=== PATIENT | female | born 1940 | race Caucasian/White ===

== ENCOUNTER 2017-12-22 06:09 | Emergency (ER) | payer MEDICARE, BC ==
[2017-12-22 06:21] VITALS: RESP 18; TEMP 98.1
[2017-12-22] MEDS ORDERED: OXYMETAZOLINE 0.05% NASL SPRAY 1 SPRAY BOTTLE NASAL STA (06:40)
--- NOTE | 2017-12-22 07:07 | ED ---
General Adult HPI - General Source: patient, RN notes reviewed, old records reviewed Mode of arrival: wheelchair Limitations: no limitations <Bola Jaffe - Last Filed: 12/22/17 07:06> <Russell Akbar - Last Filed: 12/22/17 09:06> - General Chief complaint: ENT Stated complaint: Nose Bleed Time Seen by Provider: 12/22/17 07:01 - History of Present Illness Initial comments: This is a 77-year-old female the ER for evaluation. Patient presents today for evaluation regarding nosebleed. Patient is on Coumadin, unsure of Coumadin level. Patient has 3 separatelast night stopped with pressure. Patient has no other complaints (Bola Jaffe) - Related Data Home Medications Medication Instructions Recorded Confirmed Divalproex Sodium 500 mg PO QAM 12/22/17 12/22/17 Divalproex [Depakote] 250 mg PO HS 12/22/17 12/22/17 Levothyroxine Sodium [Synthroid] 75 mcg PO DAILY 12/22/17 12/22/17 Lisinopril-Hctz 20-25 mg 1 tab PO DAILY 12/22/17 12/22/17 [Zestoretic 20-25] Metoprolol Tartrate 25 mg PO BID 12/22/17 12/22/17 Warfarin [Coumadin] 1 mg PO [id number] 12/22/17 12/22/17 Warfarin [Coumadin] 2 tab PO RICHARDSON 12/22/17 12/22/17 Zolpidem Tartrate [Ambien] 10 mg PO HS PRN 12/22/17 12/22/17 Allergies Allergy/AdvReac Type Severity Reaction Status Date / Time No Known Allergies Allergy Verified 12/22/17 07:50 Review of Systems ROS Other: All systems not noted in ROS Statement are negative. <Bola Jaffe - Last Filed: 12/22/17 07:06> ROS Other: All systems not noted in ROS Statement are negative. <Russell Akbar - Last Filed: 12/22/17 09:06> ROS Statement: Those systems with pertinent positive or pertinent negative responses have been documented in the HPI. Past Medical History Past Medical History: Atrial Fibrillation, Asthma, Hyperlipidemia, Hypertension History of Any Multi-Drug Resistant Organisms: None Reported Past Surgical History: Appendectomy Additional Past Surgical History / Comment(s): laser for gallstone Past Psychological History: No Psychological Hx Reported Smoking Status: Never smoker Past Alcohol Use History: Occasional Past Drug Use History: None Reported <Bola Jaffe - Last Filed: 12/22/17 07:06> General Exam Limitations: no limitations General appearance: alert, in no apparent distress Head exam: Present: atraumatic, normocephalic, normal inspection Eye exam: Present: normal appearance, PERRL, EOMI. Absent: scleral icterus, conjunctival injection, periorbital swelling ENT exam: Present: normal exam, mucous membranes moist, other (RIght nare epistaxis) Neck exam: Present: normal inspection. Absent: tenderness, meningismus, lymphadenopathy Respiratory exam: Present: normal lung sounds bilaterally. Absent: respiratory distress, wheezes, rales, rhonchi, stridor Cardiovascular Exam: Present: regular rate, normal rhythm, normal heart sounds. Absent: systolic murmur, diastolic murmur, rubs, gallop, clicks GI/Abdominal exam: Present: soft, normal bowel sounds. Absent: distended, tenderness, guarding, rebound, rigid Extremities exam: Present: normal inspection, full ROM, normal capillary refill. Absent: tenderness, pedal edema, joint swelling, calf tenderness Back exam: Present: normal inspection Neurological exam: Present: alert, oriented X3, CN II-XII intact Psychiatric exam: Present: normal affect, normal mood Skin exam: Present: warm, dry, intact, normal color. Absent: rash <Bola Jaffe - Last Filed: 12/22/17 07:06> Course <Bola Jaffe - Last Filed: 12/22/17 07:06> <Russell Akbar - Last Filed: 12/22/17 09:06> Vital Signs 12/22/17 12/22/17 06:14 08:13 Temperature 98.1 F Pulse Rate 87 82 Respiratory 18 18 Rate Blood Pressure 132/77 117/70 O2 Sat by Pulse 95 95 Oximetry - Reevaluation(s) Reevaluation #1: 12/22/17 07:06 Patient's nose is packed with (Bola Jaffe) Reevaluation #2: 12/22/17 09:05 I did reevaluate the patient she has a headache which she is awake alert oriented she feels much improved otherwise. She will be given a Tylenol and be discharged. I did discuss the findings with her and her family. She is a follow-up for pack removal in 2-3 days and return when necessary Tylenol for pain increase oral fluids. (Russell Akbar) Medical Decision Making <Bola Jaffe - Last Filed: 12/22/17 07:06> <Russell Akbar - Last Filed: 12/22/17 09:06> - Medical Decision Making 77 female the ER with nosebleed, right nose is packed, no current bleeding. Patient does get is okay for discharge (Bola Jaffe) Disposition Is patient prescribed a controlled substance at d/c from ED?: No <Bola Jaffe - Last Filed: 12/22/17 07:06> Is patient prescribed a controlled substance at d/c from ED?: No <Russell Akbar - Last Filed: 12/22/17 09:06> Clinical Impression: Epistaxis, Coumadin toxicity, Headache Disposition: HOME SELF-CARE Condition: Good Instructions: Nosebleed (ED), Ear Foreign Body (ED) Additional Instructions: Tylenol for pain and increase oral fluids. Referrals: Noel Angulo MD [Primary Care Provider] - 1-2 days
[2017-12-22] MEDS ORDERED: ACETAMINOPHEN TAB 325 MG TAB PO STA (08:47)
[2017-12-22 09:53] VITALS: BP 127/58; PULSE 74
== END 2017-12-22 09:53 | disposition home or self-care (01) ==
LOC: EC 06:09
DX: R04.0 Epistaxis (principal); T45.515A Adverse effect of anticoagulants, initial encounter; R51 Headache; I10 Essential (primary) hypertension; I48.91 Unspecified atrial fibrillation; Z79.899 Other long term (current) drug therapy
CPT/HCPCS: 30901; 99283

== ENCOUNTER 2021-06-03 18:55 | Inpatient (IN) | payer MEDICARE, BC ==
[2021-06-03] MEDS ORDERED: SODIUM CHLORIDE 0.9% 500 ML 500 ML IV ONE (20:23)
--- NOTE | 2021-06-03 20:35 | ED ---
General Adult HPI - General Chief complaint: Fall Stated complaint: fall/left knee/shoulder pain Time Seen by Provider: 06/03/21 20:04 Source: patient, family (Daughter), RN notes reviewed, old records reviewed Mode of arrival: wheelchair Limitations: no limitations - History of Present Illness Initial comments: 81-year-old female alert and oriented 4, presents to the emergency room with her daughter stating that she tried to get out of bed last night around 4:45 and fell. She states she fell flat spread chalkyitsik on the floor flat on her back. She states that she was unconscious until 8:15 that evening. She denies hitting her head. She states that she has left shoulder pain and left hip pain. She states that she's also been very weak. She did not take her medications last night or today. She states that her son came to pick her up off the floor after 8:30 PM and helped her get back into the bed. She states she laid in the bed all night long and urinated on a pad but did not get out of bed. She states that she was able to bear weight with some assistance to get into the car and come to the hospital. She states she did not get lightheaded or dizzy and that the cause of the fall was she was trying to put her slippers on and slipped on the floor. -: days(s) (1) Location: left, upper extremity, lower extremity Radiation: non-radiation Severity scale (1-10): 8 Quality: aching Consistency: constant Improves with: none Worsens with: movement Associated Symptoms: weakness Treatments Prior to Arrival: none - Related Data Home Medications Medication Instructions Recorded Confirmed Divalproex [Depakote] 250 mg PO BID 12/22/17 06/03/21 Levothyroxine Sodium [Synthroid] 75 mcg PO DAILY 12/22/17 06/03/21 Lisinopril-Hctz 20-25 mg 1 tab PO DAILY 12/22/17 06/03/21 [Zestoretic 20-25] Metoprolol Tartrate 25 mg PO BID 12/22/17 06/03/21 Warfarin [Coumadin] 1 mg PO HS 12/22/17 06/03/21 Zolpidem Tartrate [Ambien] 10 mg PO HS PRN 12/22/17 06/03/21 Acetaminophen Tab [Tylenol Tab] 500 mg PO Q6H PRN 06/03/21 06/03/21 Fluticasone/Salmeterol [Advair 1 puff INHALATION RT-BID 06/03/21 06/03/21 100-50 Diskus] Allergies Allergy/AdvReac Type Severity Reaction Status Date / Time No Known Allergies Allergy Verified 06/03/21 20:30 Review of Systems ROS Statement: Those systems with pertinent positive or pertinent negative responses have been documented in the HPI. ROS Other: All systems not noted in ROS Statement are negative. Past Medical History Past Medical History: Atrial Fibrillation, Asthma, Hyperlipidemia, Hypertension History of Any Multi-Drug Resistant Organisms: None Reported Past Surgical History: Appendectomy Additional Past Surgical History / Comment(s): laser for gallstone Past Psychological History: No Psychological Hx Reported Smoking Status: Never smoker Past Alcohol Use History: Occasional Past Drug Use History: None Reported General Exam Limitations: no limitations General appearance: alert, in no apparent distress Head exam: Present: atraumatic, normocephalic, normal inspection Eye exam: Present: normal appearance, PERRL, EOMI, other (Senile arcus). Absent: scleral icterus, conjunctival injection, periorbital swelling Pupils: Present: normal accommodation ENT exam: Present: normal exam, normal oropharynx, mucous membranes moist Neck exam: Present: normal inspection, full ROM. Absent: tenderness, meningismus, lymphadenopathy Respiratory exam: Present: normal lung sounds bilaterally. Absent: respiratory distress, wheezes, rales, rhonchi, stridor Cardiovascular Exam: Present: tachycardia GI/Abdominal exam: Present: soft, normal bowel sounds. Absent: distended, tenderness, guarding, rebound, rigid Extremities exam: Present: normal inspection, full ROM, normal capillary refill. Absent: tenderness, pedal edema, joint swelling, calf tenderness Back exam: Absent: tenderness, rash noted Neurological exam: Present: alert, oriented X3, CN II-XII intact Expanded Patient oriented to: Present: person, place, time Speech: Present: fluid speech Cranial nerves: EOM's Intact: Normal, Gag Reflex: Normal, Tongue Deviation: Normal Cerebellar function: Finger to Nose: Normal, Heel to Romero: Abnormal Right, Abnormal Left (States unable to lift her legs off the cart that high) Eye Response: (4) open spontaneously Motor Response: (6) obeys commands Verbal Response: (5) oriented (15) Psychiatric exam: Present: normal affect, normal mood Skin exam: Present: warm, dry, intact, normal color. Absent: rash, cyanosis, diaphoretic Course Vital Signs 06/03/21 06/03/21 06/03/21 19:48 21:51 23:30 Temperature 97.6 F Pulse Rate 106 H 84 122 H Respiratory 24 18 16 Rate Blood Pressure 103/73 106/77 100/59 O2 Sat by Pulse 95 93 L 94 L Oximetry EKG Findings - EKG Results: EKG shows: atrial fibrillation (A. fib with RVR with a ventricular rate of 132. QRS of 0.70, QTC 0.343) Medical Decision Making - Medical Decision Making X-ray of the left shoulder shows no acute osseous abnormality or dislocation. X-ray of the left hip and pelvis show no fracture or dislocation. Chest x-ray shows no acute cardiopulmonary process no displaced rib fractures. CT brain shows no mass lesions or intracranial bleeds. Her C-spine shows degenerative changes with some mild diffuse disc changes. Vertebral body height preserved no fractures are absent Her white blood cell count is 17.7 with a left shift. There is no evidence of anemia. Her glucose is 116. Her CK is 821. Her valproic acid is 18.5. INR is 5.8. Her Coumadin will be held. Troponin is negative at 0.014. EKG shows A. fib with RVR with a rate of 132. She was started on Cardizem drip and given a 5 mg Cardizem bolus. Case was discussed with Dr. Camilo. She'll be admitted to the hospital. I did speak with Dr. Valladares at 2210. - Lab Data Result diagrams: 06/03/21 20:41 06/03/21 20:41 Lab Results 06/03/21 06/03/21 06/03/21 Range/Units 20:41 20:41 20:41 WBC 17.7 H (3.8-10.6) k/uL RBC 4.59 (3.80-5.40) m/uL Hgb 14.1 (11.4-16.0) gm/dL Hct 42.8 (34.0-46.0) % MCV 93.3 (80.0-100.0) fL MCH 30.7 (25.0-35.0) pg MCHC 32.9 (31.0-37.0) g/dL RDW 13.3 (11.5-15.5) % Plt Count 212 (150-450) k/uL MPV 7.5 Neutrophils % 77 % Lymphocytes % 9 % Monocytes % 10 % Eosinophils % 0 % Basophils % 0 % Neutrophils # 13.7 H (1.3-7.7) k/uL Lymphocytes # 1.5 (1.0-4.8) k/uL Monocytes # 1.7 H (0-1.0) k/uL Eosinophils # 0.1 (0-0.7) k/uL Basophils # 0.1 (0-0.2) k/uL PT 52.0 H (9.0-12.0) sec INR 5.4 H* (<1.2) APTT 44.9 H (22.0-30.0) sec Sodium 135 L (137-145) mmol/L Potassium 4.0 (3.5-5.1) mmol/L Chloride 97 L (98-107) mmol/L Carbon Dioxide 26 (22-30) mmol/L Anion Gap 12 mmol/L BUN 27 H (7-17) mg/dL Creatinine 0.93 (0.52-1.04) mg/dL Est GFR (CKD-EPI)AfAm 67 (>60 ml/min/1.73 sqM) Est GFR (CKD-EPI)NonAf 58 (>60 ml/min/1.73 sqM) Glucose 116 H (74-99) mg/dL Calcium 9.5 (8.4-10.2) mg/dL Total Bilirubin 0.9 (0.2-1.3) mg/dL AST 51 H (14-36) U/L ALT 16 (4-34) U/L Alkaline Phosphatase 79 (38-126) U/L Creatine Kinase 821 H (30-135) U/L Troponin I (0.000-0.034) ng/mL Total Protein 7.0 (6.3-8.2) g/dL Albumin 3.8 (3.5-5.0) g/dL Valproic Acid 18.5 ug/mL 06/03/21 Range/Units 20:41 WBC (3.8-10.6) k/uL RBC (3.80-5.40) m/uL Hgb (11.4-16.0) gm/dL Hct (34.0-46.0) % MCV (80.0-100.0) fL MCH (25.0-35.0) pg MCHC (31.0-37.0) g/dL RDW (11.5-15.5) % Plt Count (150-450) k/uL MPV Neutrophils % % Lymphocytes % % Monocytes % % Eosinophils % % Basophils % % Neutrophils # (1.3-7.7) k/uL Lymphocytes # (1.0-4.8) k/uL Monocytes # (0-1.0) k/uL Eosinophils # (0-0.7) k/uL Basophils # (0-0.2) k/uL PT (9.0-12.0) sec INR (<1.2) APTT (22.0-30.0) sec Sodium (137-145) mmol/L Potassium (3.5-5.1) mmol/L Chloride (98-107) mmol/L Carbon Dioxide (22-30) mmol/L Anion Gap mmol/L BUN (7-17) mg/dL Creatinine (0.52-1.04) mg/dL Est GFR (CKD-EPI)AfAm (>60 ml/min/1.73 sqM) Est GFR (CKD-EPI)NonAf (>60 ml/min/1.73 sqM) Glucose (74-99) mg/dL Calcium (8.4-10.2) mg/dL Total Bilirubin (0.2-1.3) mg/dL AST (14-36) U/L ALT (4-34) U/L Alkaline Phosphatase (38-126) U/L Creatine Kinase (30-135) U/L Troponin I 0.014 (0.000-0.034) ng/mL Total Protein (6.3-8.2) g/dL Albumin (3.5-5.0) g/dL Valproic Acid ug/mL Disposition Clinical Impression: Fall, Atrial fibrillation with RVR Disposition: ADMITTED IP TO THIS [facility] Condition: Fair Decision Date: 06/03/21 Decision Time: 22:09
[2021-06-03 20:56] LABS: Basophils # (A) 0.1 k/uL (0-0.2); Basophils % (A) 0 %; Eosinophils # (A) 0.1 k/uL (0-0.7); Eosinophils % (A) 0 %; HCT 42.8 % (34.0-46.0); HGB 14.1 gm/dL (11.4-16.0); Lymphocytes # (A) 1.5 k/uL (1.0-4.8); Lymphocytes % (A) 9 %; MCH 30.7 pg (25.0-35.0); MCHC 32.9 g/dL (31.0-37.0); MCV 93.3 fL (80.0-100.0); Mean Platelet Volume 7.5; Monocytes # (A) 1.7 k/uL (0-1.0); Monocytes % (A) 10 %; Neutrophils # (A) 13.7 k/uL (1.3-7.7); Neutrophils % (A) 77 %; Platelet Count 212 k/uL (150-450); RBC 4.59 m/uL (3.80-5.40); RDW 13.3 % (11.5-15.5); WBC 17.7 k/uL (3.8-10.6)
[2021-06-03 21:04] LABS: Partial Thromboplastin Time 44.9 sec (22.0-30.0)
[2021-06-03 21:07] LABS: Albumin 3.8 g/dL (3.5-5.0); Calcium 9.5 mg/dL (8.4-10.2); Total Bilirubin 0.9 mg/dL (0.2-1.3)
--- NOTE | 2021-06-03 21:08 | XR ---
EXAMINATION TYPE: XR shoulder complete LT DATE OF EXAM: 06/03/2021 COMPARISON: NONE HISTORY: Fall, pain TECHNIQUE: Shoulder examined in 3 projections FINDINGS: The humeral head articulates with the glenoid. The acromio-clavicular junction is normal. No acute fractures or dislocations are evident. A follow up study can be performed 7-10 days from acute trauma for continued pain. IMPRESSION: 1. No acute osseous abnormality three-view left Shoulder
--- NOTE | 2021-06-03 21:09 | XR ---
EXAMINATION TYPE: XR Hip LT and AP Pelvis DATE OF EXAM: 06/03/2021 COMPARISON: Fall HISTORY: Pain after fall TECHNIQUE: AP pelvis with 2 view left hip FINDINGS: Femoral heads articulate with the acetabulum. Symphysis pubis and sacroiliac joints are nor mal. No acute fractures or dislocations are evident. Follow up exams can be performed as clinically i ndicated. IMPRESSION: 1. No acute osseous abnormality.
--- NOTE | 2021-06-03 21:10 | XR ---
EXAMINATION TYPE: XR chest 2V DATE OF EXAM: 06/03/2021 COMPARISON: None INDICATION: Fall, pain TECHNIQUE: Frontal and lateral views of the chest are obtained. FINDINGS: The heart size is normal. The pulmonary vasculature is normal. The lungs are clear. No pneumothorax is evident. No displaced rib fractures are identified. IMPRESSION: 1. No acute pulmonary process. 2. No acute posttraumatic changes.
[2021-06-03 21:12] LABS: Valproic Acid (Depakene) 18.5 ug/mL
--- NOTE | 2021-06-03 21:24 | CT ---
EXAMINATION TYPE: CT brain lola petersen DATE OF EXAM: 06/03/2021 COMPARISON: None HISTORY: fall CT DLP: 1353.7 mGycm, Automated exposure control for dose reduction was used. CONTRAST: Patient injected with 0 mL of Isovue 300. CT of the brain is performed utilizing 3 mm thick sections through the posterior fossa and 3 mm thick sections through the remaining calvarium. Study is performed within 24 hours of arrival to the hospital. No abnormal hyperdensity is present to suggest an acute intracranial hemorrhage. No mass lesion is evident. Mild periventricular white matter hypodensity is present, likely on the basis of chronic white matter ischemic changes. No acute infarcts are evident. Ventricles and sulci are mildly prominent for the patient age. Paranasal sinuses and mastoid air cells within the [id number] are clear. IMPRESSIONS: 1. Atrophy with chronic appearing periventricular white matter ischemic changes. CT cervical spine. COMPARISON: None CT of the cervical spine is performed in the axial plane at 2 mm thick sections. Reconstructed image s in the coronal, and sagittal plane are reviewed on the computer. No acute fractures are evident. Vertebral body alignment is normal. Mild diffuse disc space narrowing is present. Vertebral body heights are preserved. Multilevel spondylosis is present with anterior vertebral body spurring. Uncovertebral joint hypertrophy and facet hypertrophy is contributing to left foraminal stenosis at C 3-4. IMPRESSIONS: 1. No acute osseous abnormality. 2. Degenerative changes with some mild diffuse disc changes
[2021-06-03 21:33] LABS: INR 5.4 (<1.2)
[2021-06-03] MEDS ORDERED: MORPHINE SULFATE 2 MG/ML SYRINGE IVP ONE (21:38)
[2021-06-03] MEDS ORDERED: DILTIAZEM 5 MG/ML 5 ML VIAL IVP STA (21:58)
[2021-06-03] MEDS ORDERED: DILTIAZEM 125 MG in SODIUM CHLORIDE 0.9% 100 ML IV SCH (22:00)
[2021-06-03] MEDS ORDERED: IBUPROFEN 400 MG TAB PO PRN (22:09)
[2021-06-03] MEDS ORDERED: ACETAMINOPHEN TAB 325 MG TAB PO PRN (22:09)
[2021-06-03] MEDS ORDERED: NALOXONE 0.4 MG/ML 1 ML VIAL IV PRN (22:09)
[2021-06-03] MEDS ORDERED: ZOLPIDEM 5 MG TAB PO PRN (22:11)
[2021-06-03] MEDS: SODIUM CHLORIDE 0.9% 1,000 ML IV SCH (23:25)
[2021-06-04] MEDS: LEVOTHYROXINE 75 MCG TAB PO SCH (06:00)
[2021-06-04] MEDS: SODIUM CHLORIDE 0.9% 1,000 ML IV SCH ×3 (06:00→20:20)
[2021-06-04] MEDS: SYMBICORT 80-4.5 MCG INHALER INHALATION SCH ×2 (08:04→20:40)
[2021-06-04] MEDS: METOPROLOL TARTRATE 25 MG TAB PO SCH ×2 (08:59→20:20)
[2021-06-04] MEDS: DIVALPROEX 250 MG TABLET.DR PO SCH ×2 (08:59→21:59)
[2021-06-04] MEDS: LISINOPRIL-HCTZ 20-25 MG 1 EACH TAB PO SCH (08:59)
--- NOTE | 2021-06-04 12:35 | P.HPIM ---
History of Present Illness H&P Date: 06/04/21 HISTORY OF PRESENT ILLNESS This is a 81-year-old female patient of Dr. Noel Angulo with past medical history of atrial fibrillation on chronic Coumadin, mild intermittent asthma, hypertension, hyperlipidemia, hypothyroidism. Patient states that she was getting out of bed ended up falling on the ground around 4:45 in the morning and ended up laying on the floor until 8:15 in the morning. She denies having any injury and denies hitting her head. Her daughter lives with her but did not hear her fall. She did have loss of bladder. She denies having any palpitation s prior to the fall, no lightheadedness or dizziness. She does not have a exit booth agent. Dr. Angulo has been managing her INR. Patient normally walks with a wheeled walker when she lays her home but in the home she just uses the garcía to hang onto. Acute she does not usually go shopping because she is claustrophobic when she gets inside stores. Patient was brought into the [facility] emergency center. EKG was atrial fibrillation with RVR. She was found to be afebrile, heart rate 122, blood pressure 100/59, pulse ox 94% on room air. Workup revealed WBC 17.7, hemoglobin 14.1, platelet count 212. INR 5.4. Sodium 135, potassium 4.0, chloride 97, CO2 26, BUN 27 creatinine 0.93. Blood sugar 116. AST 51, CK 821. Troponin negative. Valproic acid 18.5. Rotavirus PCR not detected. TSH 2. X-ray of the left shoulder revealed no acute osseous abnormality. X-ray of the left hip and pelvis revealed no acute osseous abnormality. Chest x-ray reveals no acute pulmonary process. No acute posttraumatic changes. CAT scan of the head and cervical spine revealed atrophy with chronic-appearing. Ventricular white matter ischemic changes. CT Cervical spine no acute osseous abnormality. Degenerative changes with some mild diffuse disc changes. Patient started on IV fluids at 75 mL per hour, status post 1-1/2 L of IV fluid bolus, Cardizem drip, admit the patient to cardiac stepdown unit and cardiology consult. Patient is seen today in the emergency center waiting for them on the cardiac stepdown unit. REVIEW OF SYSTEMS Constitutional: No fever, no chills, no night sweats. No weight change. Reported weakness, Reported fatigue Reported lethargy. No daytime sleepiness. EENT: No headache. No blurred vision or double vision, no loss of vision. No dizziness. No nasal drainage or congestion. No epistaxis. No sore throat. Lungs: No shortness of breath, cough, no sputum production. No wheezing. Cardiovascular: No chest pain, no lower extremity edema. No palpitations. No paroxysmal nocturnal dyspnea. No orthopnea. No lightheadedness or dizziness. No syncopal episodes. Abdominal: No abdominal pain. No nausea, vomiting. No diarrhea. No constipation. No bloody or tarry stools. No loss of appetite. Genitourinary: No dysuria, increased frequency, urgency. No urinary retention. Musculoskeletal: No myalgias. Reported muscle weakness, no gait dysfunction, no frequent falls. No back pain. No neck pain. Integumentary: No wounds, no lesions. No rash or pruritus. No unusual bruising. No change in hair or nails. Neurologic: No aphasia. No facial droop. No change in mentation. No head injury. No headache. No paralysis. No paresthesia. Psychiatric: No depression. No anxiety. No mood swings. Endocrine: No abnormal blood sugars. No weight change. No excessive sweating or thirst. No cold intolerance. SOCIAL HISTORY Patient is a lifelong nonsmoker but 42 years of secondhand smoke exposure with her who has 3 years ago. No alcohol, marijuana or illicit drug use. Her daughter lives with her and 3 children live nearby. FAMILY HISTORY Mother at age 70 from CVA. Father at age 70 from pancreatic cancer. Patient does not have any sisters. She has 1 brother that at age 63 after a tree fell on him. She has a total of 7 children, 6 sons and 1 daughter. One son has from suicide with history of pneumonia and asthma. PHYSICAL EXAMINATION Gen: This is an 81-year-old female. She is resting on the ER stretcher and appears to be comfortable. Patient is tearful talking about her son. HEENT: Head is atraumatic, normocephalic. Pupils equal, round. Sclerae is anicteric. NECK: Supple. No JVD. No lymphadenopathy. No thyromegaly. LUNGS: Clear to auscultation. No wheezes or rhonchi. No intercostal retractions. HEART: Regular rate and rhythm. No murmur. ABDOMEN: Soft. Bowel sounds are present. No masses. No tenderness. EXTREMITIES: No pedal edema. No calf tenderness. NEUROLOGICAL: Patient is awake, alert and oriented x3. Cranial nerves 2 through 12 are grossly intact. ASSESSMENT AND PLAN 1. Fall, mechanical with generalized weakness. Consult with PT and OT. Patient most likely will require subacute rehab. 2. Rhabdomyolysis. s/p 1500 mL of IV fluids, decrease IV fluids to 75 mL/h, recheck CK tomorrow. 3. Chronic atrial fibrillation with RVR. Cardiology consult. Patient has been started on Cardizem drip, resume Lopressor 25 mg twice daily. hold Coumadin for tonight and recheck INR in the morning. 4. Hypercoagulopathy secondary to Coumadin use, rhabdomyolysis. 5. Hypertension. Zestoretic 2024 one daily, Lopressor 25 mg twice daily. 6. Mild intermittent asthma, stable. Continue Symbicort 2 puffs twice daily. 7. Hyperlipidemia. 8. GI prophylaxis. Protonix. 9. DVT prophylaxis Coumadin-on hold. Patient will be admitted to the hospital for a minimum of 2 nights. DISCHARGE PLAN TBD. PT and OT consults Impression and plan of care have been directed as dictated by the signing physician. Dianna Souza nurse practitioner acting as scribe for signing physician. Past Medical History Past Medical History: Atrial Fibrillation, Asthma, Hyperlipidemia, Hypertension History of Any Multi-Drug Resistant Organisms: None Reported Past Surgical History: Appendectomy Additional Past Surgical History / Comment(s): laser for gallstone Past Psychological History: No Psychological Hx Reported Smoking Status: Never smoker Past Alcohol Use History: Occasional Past Drug Use History: None Reported - Past Family History Mother Family Medical History: CVA/TIA Father Family Medical History: Cancer Medications and Allergies Home Medications Medication Instructions Recorded Confirmed Type Divalproex [Depakote] 250 mg PO BID 12/22/17 06/03/21 History Levothyroxine Sodium [Synthroid] 75 mcg PO DAILY 12/22/17 06/03/21 History Lisinopril-Hctz 20-25 mg 1 tab PO DAILY 12/22/17 06/03/21 History [Zestoretic 20-25] Metoprolol Tartrate 25 mg PO BID 12/22/17 06/03/21 History Warfarin [Coumadin] 1 mg PO HS 12/22/17 06/03/21 History Zolpidem Tartrate [Ambien] 10 mg PO HS PRN 12/22/17 06/03/21 History Acetaminophen Tab [Tylenol Tab] 500 mg PO Q6H PRN 06/03/21 06/03/21 History Fluticasone/Salmeterol [Advair 1 puff INHALATION RT-BID 06/03/21 06/03/21 History 100-50 Diskus] Allergies Allergy/AdvReac Type Severity Reaction Status Date / Time No Known Allergies Allergy Verified 06/03/21 20:30 Physical Exam Vitals: Vital Signs Temp Pulse Resp BP Pulse Ox 06/04/21 08:58 90 20 109/76 98 06/04/21 06:00 98.1 F 91 20 118/65 99 06/04/21 05:00 92 18 109/71 98 06/04/21 04:00 91 18 96 06/04/21 03:00 97 18 96/60 94 L 06/04/21 02:00 112 H 18 97/63 94 L 06/04/21 00:22 110 H 06/03/21 23:30 122 H 16 100/59 94 L 06/03/21 21:51 84 18 106/77 93 L 06/03/21 19:48 97.6 F 106 H 24 103/73 95 Intake and Output 06/03/21 06/04/21 06/04/21 22:59 06:59 14:59 Other: Weight 84.368 kg Results CBC & Chem 7: 06/05/21 08:37 06/05/21 08:37 Labs: Abnormal Lab Results - Last 24 Hours (Table) 06/03/21 06/03/21 06/03/21 Range/Units 20:41 20:41 20:41 WBC 17.7 H (3.8-10.6) k/uL Neutrophils # 13.7 H (1.3-7.7) k/uL Monocytes # 1.7 H (0-1.0) k/uL PT 52.0 H (9.0-12.0) sec INR 5.4 H* (<1.2) APTT 44.9 H (22.0-30.0) sec Sodium 135 L (137-145) mmol/L Chloride 97 L (98-107) mmol/L BUN 27 H (7-17) mg/dL Glucose 116 H (74-99) mg/dL AST 51 H (14-36) U/L Creatine Kinase 821 H (30-135) U/L
[2021-06-05] MEDS: LEVOTHYROXINE 75 MCG TAB PO SCH (06:38)
[2021-06-05] MEDS: SYMBICORT 80-4.5 MCG INHALER INHALATION SCH ×2 (07:51→20:40)
[2021-06-05] MEDS: LISINOPRIL-HCTZ 20-25 MG 1 EACH TAB PO SCH (08:51)
[2021-06-05] MEDS: METOPROLOL TARTRATE 25 MG TAB PO SCH ×2 (08:51→20:28)
[2021-06-05] MEDS: DIVALPROEX 250 MG TABLET.DR PO SCH ×2 (08:51→20:28)
[2021-06-05] MEDS: SODIUM CHLORIDE 0.9% 1,000 ML IV SCH ×2 (08:52→22:33)
[2021-06-05 09:14] LABS: HCT 35.2 % (34.0-46.0); HGB 11.8 gm/dL (11.4-16.0); MCH 31.3 pg (25.0-35.0); MCHC 33.4 g/dL (31.0-37.0); MCV 93.7 fL (80.0-100.0); Mean Platelet Volume 7.6; Platelet Count 219 k/uL (150-450); RBC 3.75 m/uL (3.80-5.40); RDW 13.8 % (11.5-15.5)
[2021-06-05 09:26] LABS: INR 3.2 (<1.2); Prothrombin Time 31.2 sec (9.0-12.0)
[2021-06-05 09:38] LABS: African American GFR (CKD) >90 (>60 ml/min/1.73 sqM); Anion Gap 6 mmol/L; Blood Urea Nitrogen 19 mg/dL (7-17); Calcium 8.6 mg/dL (8.4-10.2); Carbon Dioxide 27 mmol/L (22-30); Chloride 104 mmol/L (98-107); Creatine Kinase 281 U/L (30-135); Glucose 114 mg/dL (74-99); Non-African American GFR(CKD) 85 (>60 ml/min/1.73 sqM); Potassium 3.9 mmol/L (3.5-5.1); Sodium 137 mmol/L (137-145)
--- NOTE | 2021-06-05 11:25 | ECHOF ---
Referral Reason:afib, LV function MEASUREMENTS -------- HEIGHT: 154.9 cm WEIGHT: 87.1 kg BP: RVIDd: 2.6 cm (< 3.3) IVSd: 1.2 cm (0.6 - 1.1) LVIDd: 4.8 cm (3.9 - 5.3) LVPWd: 1.0 cm (0.6 - 1.1) IVSs: 1.7 cm LVIDs: 3.0 cm LVPWs: 1.3 cm LAESV Index (A-L): 27.79 ml/m Ao Diam: 3.0 cm (2.0 - 3.7) AV Cusp: 1.8 cm (1.5 - 2.6) LA Diam: 2.8 cm (2.7 - 3.8) AR PHT: 557 ms RAP: 5.00 mmHg RVSP: 33.21 mmHg FINDINGS -------- Atrial fibrillation. This was a technically good study. The left ventricular size is normal. Left ventricular wall thickness is normal. Overall left vent ricular systolic function is low-normal with, an EF between 50 - 55 %. Left ventricular fillimg pre ssure cannot be estimated due to Atrial fibrillation. The right ventricle is normal in size. The left atrial size is normal. Normal LA size by volume 22+/-6 ml/m2. The right atrial size is normal. The aortic valve is trileaflet and appears structurally normal. Trace amount of aortic regurgitatio n. The mitral valve is normal. Mild mitral regurgitation is present. The tricuspid valve appears structurally normal. Mild tricuspid regurgitation present. Right vent ricular systolic pressure is normal at < 35 mmHg. There is no pulmonic regurgitation present. The aortic root size is normal. Normal inferior vena cava with normal inspiratory collapse consistent with estimated right atrial pre ssure of 5 mmHg. Echo free space represents a pericardial fat pad. CONCLUSIONS -------- 1. The left ventricular size is normal. 2. Left ventricular wall thickness is normal. 3. Overall left ventricular systolic function is low-normal with, an EF between 50 - 55 %. 4. Left ventricular fillimg pressure cannot be estimated due to Atrial fibrillation. 5. Trace amount of aortic regurgitation. 6. Mild mitral regurgitation is present. 7. Mild tricuspid regurgitation present. 8. Echo free space represents a pericardial fat pad. DRY MOP MAKER: Eve Starkey RDCS
--- NOTE | 2021-06-05 12:07 | P.CRDCN ---
History of Present Illness Consult date: 06/05/21 History of present illness: HISTORY OF PRESENT ILLNESS: This is a 81-year-old female with a past medical history significant for atrial fibrillation, hypertension, and asthma. Patient used to follow in the office with Dr. Jacobs but has not been seen since 2016. We have been asked to see the patient in consultation for A. fib with RVR. Patient examined at the bedside. Patient presented to the hospital after sustaining a mechanical fall at home. The patient states after she fell she laid on the floor for a few hours. The patient was found to be in A. fib with RVR upon admission to the hospital. The patient was started on a Cardizem drip. She is maintaining atrial fibrillation this morning with a heart rate in the 80s. She denies chest pain or pressure. Denies shortness of breath. Denies palpitations. EKG reveals atrial fibrillation with RVR Chest xray negative for acute process echocardiogram obtained reveals ejection fraction 50-55%, mild mitral regurgitation, and trace aortic regurgitation. Laboratory data: CBC 10.0. Hemoglobin 11.8. Platelet count 219. INR 5.4. Repeat 3.2. Sodium 137. Potassium 3.9. BUN 19. Creatinine 0.61. Troponin 0.014. Creatinine kinase 821. Current home cardiac medications include Coumadin 1 mg at night, metoprolol tartrate 25 mg twice a day, lisinopril-hydrochlorothiazide 20-25mg daily REVIEW OF SYSTEMS: At the time of my exam: CONSTITUTIONAL: Denies fever or chills. HEENT: Denies blurred vision, vision changes, or eye pain. Denies hemoptysis CARDIOVASCULAR: Denies chest pain. Denies orthopnea. Denies PND. Denies palpitations RESPIRATORY: Denies shortness of breath. GASTROINTESTINAL: Denies abdominal pain. Denies nausea or vomiting. HEMATOLOGIC: Denies bleeding disorders. GENITOURINARY: Denies any blood in urine. SKIN: Denies pruitis. Denies rash. PHYSICAL EXAM: VITAL SIGNS: Reviewed. GENERAL: Well-developed in no acute distress. HEENT: Head is normocephalic. Pupils are equal, round. Sclerae anicteric. Mucous membranes of the mouth are moist. Neck supple. No JVD or thyromegaly LUNGS: Respirations even and unlabored. Lungs essentially clear to auscultation bilaterally. HEART: Regular rate and rhythm. S1 and S2 heard. ABDOMEN: Soft. Nondistended. Nontender. EXTREMITIES: Normal range of motion. No clubbing or cyanosis. Peripheral pulses intact. No lower extremity edema NEUROLOGIC: Awake and alert. Oriented x 3. ASSESSMENT: Mechanical fall Elevated CK, possible rhabdomyolysis Chronic persistent atrial fibrillation with RVR Supratherapeutic INR Hypertension Asthma PLAN: 2D echo obtained and reviewed Resume home cardiac medications Hold coumadin secondary to elevated INR. Resume when coagulopathy resolves Continue telemetry monitoring No further inpatient recommendations from a cardiac standpoint We will follow up on an as-needed basis. Please call with questions or concerns Nurse practitioner note has been reviewed by physician. Signing provider agrees with the documented findings, assessment, and plan of care. Past Medical History Past Medical History: Atrial Fibrillation, Asthma, Hyperlipidemia, Hypertension History of Any Multi-Drug Resistant Organisms: None Reported Past Surgical History: Appendectomy, Hernia Repair, Tubal Ligation Additional Past Surgical History / Comment(s): laser for gallstone Past Anesthesia/Blood Transfusion Reactions: No Reported Reaction Additional Past Anesthesia/Blood Transfusion Reaction / Comment(s): Last blood transfusion 08/1969. No reaction. Past Psychological History: Depression Smoking Status: Never smoker Past Alcohol Use History: Occasional Past Drug Use History: None Reported - Past Family History Mother Family Medical History: CVA/TIA Father Family Medical History: Cancer Medications and Allergies Home Medications Medication Instructions Recorded Confirmed Type Divalproex [Depakote] 250 mg PO BID 12/22/17 06/03/21 History Levothyroxine Sodium [Synthroid] 75 mcg PO DAILY 12/22/17 06/03/21 History Lisinopril-Hctz 20-25 mg 1 tab PO DAILY 12/22/17 06/03/21 History [Zestoretic 20-25] Metoprolol Tartrate 25 mg PO BID 12/22/17 06/03/21 History Warfarin [Coumadin] 1 mg PO HS 12/22/17 06/03/21 History Zolpidem Tartrate [Ambien] 10 mg PO HS PRN 12/22/17 06/03/21 History Acetaminophen Tab [Tylenol Tab] 500 mg PO Q6H PRN 06/03/21 06/03/21 History Fluticasone/Salmeterol [Advair 1 puff INHALATION RT-BID 06/03/21 06/03/21 History 100-50 Diskus] Allergies Allergy/AdvReac Type Severity Reaction Status Date / Time No Known Allergies Allergy Verified 06/03/21 20:30 Physical Exam Vitals: Vital Signs Temp Pulse Pulse Resp BP BP Pulse Ox 06/05/21 08:00 97.8 F 101 H 16 117/75 90 L 06/05/21 04:00 97.4 F L 73 16 112/64 98 06/05/21 00:00 98.4 F 89 18 105/63 93 L 06/04/21 22:01 97.1 F L 80 16 129/60 96 06/04/21 20:00 97.1 F L 73 06/04/21 17:30 74 18 102/59 99 06/04/21 15:06 52 L 16 97/51 98 06/04/21 13:58 97.6 F 65 18 111/64 98 Intake and Output 06/04/21 06/05/21 06/05/21 22:59 06:59 14:59 Intake Total 900 Balance 900 Intake: Intake, IV Titration 900 Amount Sodium Chloride 0.9% 1, 900 000 ml @ 75 mls/hr IV . [id number] [facility] Rx#:[id number] Other: # Voids 1 1 1 # Bowel Movements 1 1 Weight 84.368 kg 87.5 kg Results 06/05/21 08:37 06/05/21 08:37 Coagulation 06/05/21 Range/Units 08:37 PT 31.2 H (9.0-12.0) sec CBC 06/05/21 Range/Units 08:37 WBC 10.0 (3.8-10.6) k/uL RBC 3.75 L (3.80-5.40) m/uL Hgb 11.8 (11.4-16.0) gm/dL Hct 35.2 (34.0-46.0) % Plt Count 219 (150-450) k/uL Comprehensive Metabolic Panel 06/05/21 Range/Units 08:37 Sodium 137 (137-145) mmol/L Potassium 3.9 (3.5-5.1) mmol/L Chloride 104 (98-107) mmol/L Carbon Dioxide 27 (22-30) mmol/L BUN 19 H (7-17) mg/dL Creatinine 0.61 (0.52-1.04) mg/dL Glucose 114 H (74-99) mg/dL Calcium 8.6 (8.4-10.2) mg/dL Current Medications Generic Name Dose Route Start Last Admin Trade Name Freq PRN Reason Stop Dose Admin Acetaminophen 650 mg 06/03/21 22:09 06/05/21 06:43 Acetaminophen Tab 325 Mg Tab PO 650 mg Q6HR PRN Administration Mild Pain or Fever > 100.5 Budesonide/Formoterol Fumarate 2 puff 06/04/21 08:00 06/05/21 07:51 Symbicort 80-4.5 Mcg Inhaler INHALATION 2 puff RT-BID PAMELA Administration Divalproex Sodium 250 mg 06/04/21 09:00 06/05/21 08:51 Divalproex 250 Mg Tablet.Dr PO 250 mg BID PAMELA Administration Lisinopril/HCTZ 1 each 06/04/21 09:00 06/05/21 08:51 Lisinopril-Hctz 20-25 Mg 1 Each Tab PO 1 each DAILY PAMELA Administration Sodium Chloride 1,000 mls @ 75 mls/hr 06/04/21 12:30 06/05/21 08:52 Saline 0.9% IV 75 mls/hr .[id number] PAMELA Administration Levothyroxine Sodium 75 mcg 06/04/21 06:30 06/05/21 06:38 Levothyroxine 75 Mcg Tab PO 75 mcg DAILY@0630 PAMELA Administration Metoprolol Tartrate 25 mg 06/04/21 09:00 06/05/21 08:51 Metoprolol Tartrate 25 Mg Tab PO 25 mg BID PAMELA Administration Miscellaneous Information 1 each 06/05/21 11:40 Warfarin Per Pharmacy MISCELLANE DIRECTED PRN INR Naloxone HCl 0.2 mg 06/03/21 22:09 Naloxone 0.4 Mg/Ml 1 Ml Vial IV Q2M PRN Opioid Reversal Warfarin Sodium 1 mg 06/05/21 18:00 Warfarin 1 Mg Tab PO 06/05/21 18:01 ONCE@1800 ONE Protocol Zolpidem Tartrate 10 mg 06/03/21 22:11 Zolpidem 5 Mg Tab PO HS PRN Insomnia Intake and Output 06/04/21 06/05/21 06/05/21 22:59 06:59 14:59 Intake Total 900 Balance 900 Intake: Intake, IV Titration 900 Amount Sodium Chloride 0.9% 1, 900 000 ml @ 75 mls/hr IV . [id number] [facility] Rx#:[id number] Other: # Voids 1 1 1 # Bowel Movements 1 1 Weight 84.368 kg 87.5 kg 06/05/21 08:37 06/05/21 08:37
--- NOTE | 2021-06-05 13:13 | P.PN ---
Subjective Progress Note Date: 06/05/21 HISTORY OF PRESENT ILLNESS This is a 81-year-old female patient of Dr. Noel Angulo with past medical history of atrial fibrillation on chronic Coumadin, mild intermittent asthma, hypertension, hyperlipidemia, hypothyroidism. Patient states that she was getting out of bed ended up falling on the ground around 4:45 in the morning and ended up laying on the floor until 8:15 in the morning. She denies having any injury and denies hitting her head. Her daughter lives with her but did not hear her fall. She did have loss of bladder. She denies having any palpitations prior to the fall, no lightheadedness or dizziness. She does not have a cylinder steamer. Dr. Angulo has been managing her INR. Patient normally walks with a wheeled walker when she lays her home but in the home she just uses the garcía to hang onto. Acute she does not usually go shopping because she is claustrophobic when she gets inside stores. Patient was brought into the [facility] emergency center. EKG was atrial fibrillation with RVR. She was found to be afebrile, heart rate 122, blood pressure 100/59, pulse ox 94% on room air. Workup revealed WBC 17.7, hemoglobin 14.1, platelet count 212. INR 5.4. Sodium 135, potassium 4.0, chloride 97, CO2 26, BUN 27 creatinine 0.93. Blood sugar 116. AST 51, CK 821. Troponin negative. Valproic acid 18.5. Rotavirus PCR not detected. TSH 2. X-ray of the left shoulder revealed no acute osseous abnormality. X-ray of the left hip and pelvis revealed no acute osseous abnormality. Chest x-ray reveals no acute pulmonary process. No acute posttraumatic changes. CAT scan of the head and cervical spine revealed atrophy with chronic-appearing. Ventricular white matter ischemic changes. CT Cervical spine no acute osseous abnormality. Degenerative changes with some mild diffuse disc changes. Patient started on IV fluids at 75 mL per hour, status post 1-1/2 L of IV fluid bolus, Cardizem drip, admit the patient to cardiac stepdown unit and cardiology consult. Patient is seen today in the emergency center waiting for them on the cardiac stepdown unit. 06/05: Repeat blood work reveals INR INR 3.2 and Coumadin will be resumed tonight. WBC normal at 10, hemoglobin 11.8. Electrolytes are normal, BUN 19 and creatinine 0.61. Blood sugar 114. CK 281. conveyor monitor is atrial fibrillation with controlled rate running 70 to 90s. Patient was seen by cardiology and they have signed off. IV fluids will be discontinued after the current bag is finished. Repeat blood work will be ordered for tomorrow. Patient has been evaluated by physical therapy with recommendations for home with home care. Anticipate discharge home tomorrow. Echocardiogram reveals EF of 5055% with trace aortic regurgitation, mild mitral regurgitation, mild tricuspid regurgitation. REVIEW OF SYSTEMS Constitutional: No fever, no chills, no night sweats. No weight change. Reported weakness, denies fatigue denies lethargy. No daytime sleepiness. EENT: No headache. No blurred vision or double vision, no loss of vision. No dizziness. No nasal drainage or congestion. No epistaxis. No sore throat. Lungs: No shortness of breath, cough, no sputum production. No wheezing. Cardiovascular: No chest pain, no lower extremity edema. No palpitations. No paroxysmal nocturnal dyspnea. No orthopnea. No lightheadedness or dizziness. No syncopal episodes. Abdominal: No abdominal pain. No nausea, vomiting. No diarrhea. No constipation. No bloody or tarry stools. No loss of appetite. Genitourinary: No dysuria, increased frequency, urgency. No urinary retention. Musculoskeletal: No myalgias. Reported muscle weakness, no gait dysfunction, no frequent falls. No back pain. No neck pain. Integumentary: No wounds, no lesions. No rash or pruritus. No unusual bruising. No change in hair or nails. Neurologic: No aphasia. No facial droop. No change in mentation. No head injury. No headache. No paralysis. No paresthesia. Psychiatric: No depression. No anxiety. No mood swings. Endocrine: No abnormal blood sugars. No weight change. No excessive sweating or thirst. No cold intolerance. PHYSICAL EXAMINATION Gen: This is an 81-year-old female. She is resting IN BED and appears to be comfortable. HEENT: Head is atraumatic, normocephalic. Pupils equal, round. Sclerae is anicteric. NECK: Supple. No JVD. No lymphadenopathy. No thyromegaly. LUNGS: Clear to auscultation. No wheezes or rhonchi. No intercostal retractions. HEART: Regular rate and rhythm. No murmur. ABDOMEN: Soft. Bowel sounds are present. No masses. No tenderness. EXTREMITIES: No pedal edema. No calf tenderness. NEUROLOGICAL: Patient is awake, alert and oriented x3. Cranial nerves 2 through 12 are grossly intact. ASSESSMENT AND PLAN 1. Fall, mechanical with generalized weakness. Consult with PT and OT. 2. Rhabdomyolysis. s/p 1500 mL of IV fluids, decrease IV fluids to 75 mL/h, recheck CK tomorrow. Discontinue IV fluids after current bag is completed. 3. Chronic atrial fibrillation with RVR. Cardiology consult. Patient has been started on Cardizem drip, resume Lopressor 25 mg twice daily. hold Coumadin for tonight and recheck INR in the morning. Resume Coumadin today. 4. Hypercoagulopathy secondary to Coumadin use, rhabdomyolysis. 5. Hypertension. Zestoretic 2024 one daily, Lopressor 25 mg twice daily. 6. Mild intermittent asthma, stable. Continue Symbicort 2 puffs twice daily. 7. Hyperlipidemia. 8. GI prophylaxis. Protonix. 9. DVT prophylaxis Coumadin-on hold. DISCHARGE PLAN Home with homecare tomorrow Impression and plan of care have been directed as dictated by the signing phys chelsie. Dianna Souza nurse practitioner acting as scribe for signing physician. Objective - Vital Signs Vital signs: Vital Signs Temp 97.8 F 06/05/21 08:00 Pulse 101 H 06/05/21 08:00 Resp 16 06/05/21 08:00 BP 117/75 06/05/21 08:00 Pulse Ox 90 L 06/05/21 08:00 Intake & Output 06/04/21 06/05/21 06/05/21 18:59 06:59 18:59 Intake Total 900 Balance 900 Weight 87.5 kg Intake: Intake, IV Titration 900 Amount Sodium Chloride 0.9% 1, 900 000 ml @ 75 mls/hr IV . [id number] [facility] Rx#:[id number] Other: # Voids 1 1 # Bowel Movements 1 1 - Labs CBC & Chem 7: 06/05/21 08:37 06/05/21 08:37 Labs: Abnormal Lab Results - Last 24 Hours (Table) 06/05/21 06/05/2106/05/21 Range/Units 08:37 08:37 08:37 RBC 3.75 L (3.80-5.40) m/uL PT 31.2 H (9.0-12.0) sec INR 3.2 H (<1.2) BUN 19 H (7-17) mg/dL Glucose 114 H (74-99) mg/dL Creatine Kinase 281 H (30-135) U/L
[2021-06-05] MEDS ORDERED: WARFARIN 1 MG TAB PO ONE (18:00)
[2021-06-06 04:11] VITALS: RESP 18
[2021-06-06] MEDS: LEVOTHYROXINE 75 MCG TAB PO SCH (05:24)
[2021-06-06] MEDS ORDERED: PANTOPRAZOLE 40 MG TABLET PO SCH (07:30)
[2021-06-06 08:21] LABS: INR 3.6 (<1.2); Prothrombin Time 34.9 sec (9.0-12.0)
[2021-06-06] MEDS: METOPROLOL TARTRATE 25 MG TAB PO SCH (08:53)
[2021-06-06] MEDS: LISINOPRIL-HCTZ 20-25 MG 1 EACH TAB PO SCH (08:53)
[2021-06-06] MEDS: DIVALPROEX 250 MG TABLET.DR PO SCH (08:53)
[2021-06-06] MEDS: SYMBICORT 80-4.5 MCG INHALER INHALATION SCH (09:43)
[2021-06-06 10:26] LABS: Appearance,Urine Clear (Clear); Bacteria,Urine Occasional /hpf; Bilirubin,Urine Negative (Negative); Blood,Urine Trace (Negative); Color,Urine Yellow; Glucose,Urine (UA) Negative (Negative); Ketones,Urine Negative (Negative); Leukocyte Esterase,Urine Moderate (Negative); Mucus,Urine Rare /hpf; Nitrite,Urine Negative (Negative); Protein,Urine Negative (Negative); RBC,Urine 4 /hpf (0-5); Specific Gravity,Urine 1.013 (1.001-1.035); Squamous Epithelial Cell,Urine 1 /hpf (0-4); WBC,Urine 74 /hpf (0-5)
[2021-06-06 11:00] VITALS: BP 129/77; TEMP 97
[2021-06-06 12:23] VITALS: PULSE 87
--- NOTE | 2021-06-06 12:24 | P.DS ---
Providers Date of admission: 06/03/21 22:32 Expected date of discharge: 06/06/21 Attending physician: Israel Valladares Primary care physician: Noel Angulo [facility] Course: HISTORY OF PRESENT ILLNESS This is a 81-year-old female patient of Dr. Noel Angulo with past medical history of atrial fibrillation on chronic Coumadin, mild intermittent asthma, hypertension, hyperlipidemia, hypothyroidism. Patient states that she was getting out of bed ended up falling on the ground around 4:45 in the morning and ended up laying on the floor until 8:15 in the morning. She denies having any injury and denies hitting her head. Her daughter lives with her but did not hear her fall. She did have loss of bladder. She denies having any palpitations prior to the fall, no lightheadedness or dizziness. She does not h ave a angle furnaceman. Dr. Angulo has been managing her INR. Patient normally walks with a wheeled walker when she lays her home but in the home she just uses the garcía to hang onto. Acute she does not usually go shopping because she is claustrophobic when she gets inside stores. Patient was brought into the [facility] emergency center. EKG was atrial fibrillation with RVR. She was found to be afebrile, heart rate 122, blood pressure 100/59, pulse ox 94% on room air. Workup revealed WBC 17.7, hemoglobin 14.1, platelet count 212. INR 5.4. Sodium 135, potassium 4.0, chlor maida 97, CO2 26, BUN 27 creatinine 0.93. Blood sugar 116. AST 51, CK 821. Troponin negative. Valproic acid 18.5. Rotavirus PCR not detected. TSH 2. X-ray of the left shoulder revealed no acute osseous abnormality. X-ray of the left hip and pelvis revealed no acute osseous abnormality. Chest x-ray reveals no acute pulmonary process. No acute posttraumatic changes. CAT scan of the head and cervical spine revealed atrophy with chronic-appearing. Ventricular white matter ischemic changes. CT Cervical spine no acute osseous abnormality. Degenerative changes with some mild diffuse disc changes. Patient started on IV fluids at 75 mL per hour, status post 1-1/2 L of IV fluid bolus, Cardizem drip, admit the patient to cardiac stepdown unit and cardiology consult. Patient is seen today in the emergency center waiting for them on the cardiac stepdown unit. 06/05: Repeat blood work reveals INR INR 3.2 and Coumadin will be resumed tonight. WBC normal at 10, hemoglobin 11.8. Electrolytes are normal, BUN 19 and creatinine 0.61. Blood sugar 114. CK 281. site monitor is atrial fibrillation with controlled rate running 70 to 90s. Patient was seen by cardiology and they have signed off. IV fluids will be discontinued after the current bag is finished. Repeat blood work will be ordered for tomorrow. Patient has been evaluated by physical therapy with recommendations for home with home care. Anticipate discharge home tomorrow. Echocardiogram reveals EF of 5055% with trace aortic regurgitation, mild mitral regurgitation, mild tricuspid regurgitation. 06/06: The patient denies any new complaints. She states she has walked the hallways multiple times and is doing very well. She denies having any chest pain, shortness of breath, palpitations, lightheadedness or dizziness with ambulation. site monitor has been atrial fibrillation, heart rate in the 70s to 90s. Patient will be discharged home today in stable condition. ASSESSMENT AND PLAN 1. Fall, mechanical with generalized weakness. 2. Rhabdomyolysis. s/p IV fluids 3. Chronic atrial fibrillation with RVR. 4. Hypercoagulopathy secondary to Coumadin use, rhabdomyolysis. 5. Hypertension. 6. Mild intermittent asthma, stable. 7. Hyperlipidemia. DISCHARGE PLAN Home with [facility] Impression and plan of care have been directed as dictated by the signing physician. Dianna Souza nurse practitioner acting as scribe for signing physician. Patient Condition at Discharge: Good Plan - Discharge Summary Discharge Rx Participant: No New Discharge Prescriptions: Continue Lisinopril-Hctz 20-25 mg [Zestoretic 20-25] 1 tab PO DAILY Metoprolol Tartrate 25 mg PO BID Warfarin [Coumadin] 1 mg PO HS Levothyroxine Sodium [Synthroid] 75 mcg PO DAILY Divalproex [Depakote] 250 mg PO BID Zolpidem Tartrate [Ambien] 10 mg PO HS PRN PRN Reason: Insomnia Fluticasone/Salmeterol [Advair 100-50 Diskus] 1 puff INHALATION RT-BID Acetaminophen Tab [Tylenol] 500 mg PO Q6H PRN PRN Reason: Shortness Of Breath Discharge Medication List Divalproex [Depakote] 250 mg PO BID 12/22/17 [History] Levothyroxine Sodium [Synthroid] 75 mcg PO DAILY 12/22/17 [History] Lisinopril-Hctz 20-25 mg [Zestoretic 20-25] 1 tab PO DAILY 12/22/17 [History] Metoprolol Tartrate 25 mg PO BID 12/22/17 [History] Warfarin [Coumadin] 1 mg PO HS 12/22/17 [History] Zolpidem Tartrate [Ambien] 10 mg PO HS PRN 12/22/17 [History] Acetaminophen Tab [Tylenol] 500 mg PO Q6H PRN 06/03/21 [History] Fluticasone/Salmeterol [Advair 100-50 Diskus] 1 puff INHALATION RT-BID 06/03/21 [History] Follow up Appointment(s)/Referral(s): Jacob Coleman DO [STAFF PHYSICIAN] - 1 Week (The office will call you with appointment date and time.) Noel Angulo MD [Primary Care Provider] - 06/12/21 10:15 am Patient Instructions/Handouts: A-fib (Atrial Fibrillation) (DC), Fall Prevention for Older Adults (DC) Discharge Disposition: HOME WITH HOME HEALTH SERVICES
[2021-06-06] MEDS ORDERED: WARFARIN 0.5 MG TAB PO ONE (18:00)
--- NOTE | 2021-06-09 09:10 | CDI ---
Documentation Clarification Form Date: 06/09/2021 08:09:00 AM From: Allyson Hernandez Admit Date: 06/03/2021 10:32:00 PM Patient Name: Falguni Sorenson Visit Number: [id number] Discharge Date: 06/06/2021 12:24:00 PM ATTENTION: The Clinical Documentation Specialists (CDI) and [facility] Coding Staff appreciate your assistance in clarifying documentation. Please respond to the clarification below the line at the bottom and electronically sign. The CDI & [facility] Coding staff will review the response and follow-up if needed. Please note: Queries are made part of the Legal Health Record. If you have any questions, please contact the author of this message via ITS. Dr. Israel Valladares Rhabdomyolysis is documented throughout the chart. Patient was getting out of bed and ended up falling on the ground around 4:45 am and ended up lying on the floor until 8:15 am. Please clarify if patient's rhabdomyolysis is due to trauma or not. Additional clarification regarding the type of rhabdomyolysis is requested. History/Risk Factors: Fall Clinical Indicators: CK 821 Treatment:,1500 mL of IV fluids, decrease to 75 mLh Please clarify the type of rhabdomyolysis, if known: [ ] Traumatic rhabdomyolysis due to fall [ xx ] Traumatic rhabdomyolysis due to prolonged immobility [ ] Non traumatic rhabdomyolysis due to medication (please specify) [ ] Non traumatic rhabdomyolysis due to infection (please specify) [ ] Other, please specify [ ] Unable to Determine MTDD
== END 2021-06-06 12:24 | disposition home health service (06) | DRG 310 ==
LOC: EC 18:55 → 3SCARD 22:32
PROVIDERS: ADMIT Internal Medicine Geriatric Medicine; ATTEND Internal Medicine Geriatric Medicine
DX: I48.19 Other persistent atrial fibrillation (principal); J45.20 Mild intermittent asthma, uncomplicated; I10 Essential (primary) hypertension; E78.5 Hyperlipidemia, unspecified; E03.9 Hypothyroidism, unspecified; R79.1 Abnormal coagulation profile; T79.6XXA Traumatic ischemia of muscle, initial encounter; T45.515A Adverse effect of anticoagulants, initial encounter; W01.0XXA Fall on same level from slipping, tripping and stumbling without subsequent striking against object, initial encounter; Y92.009 Unspecified place in unspecified non-institutional (private) residence as the place of occurrence of the external cause; Z77.22 Contact with and (suspected) exposure to environmental tobacco smoke (acute) (chronic); Z20.822 Contact with and (suspected) exposure to COVID-19; Z79.01 Long term (current) use of anticoagulants; Z79.51 Long term (current) use of inhaled steroids; Z79.890 Hormone replacement therapy; Z79.899 Other long term (current) drug therapy; Z80.0 Family history of malignant neoplasm of digestive organs; Z82.3 Family history of stroke; Z82.5 Family history of asthma and other chronic lower respiratory diseases; Z81.8 Family history of other mental and behavioral disorders; F40.240 Claustrophobia
CPT/HCPCS: 36415; 70450; 71046; 72125; 73502; 80048; 80053; 80164; 81001; 82550; 84443; 84484; 85025; 85027; 85610; 85730; 87077; 87086; 87186; 87635; 93005; 93306; 94640; 94760; 96360; 96361; 99285

== ENCOUNTER 2021-06-30 12:40 | Inpatient (IN) | payer MEDICARE, BC ==
[2021-06-30 13:33] LABS: Basophils % (A) 1 %; Eosinophils % (A) 1 %; HCT 39.3 % (34.0-46.0); HGB 13.5 gm/dL (11.4-16.0); Lymphocytes # (A) 1.1 k/uL (1.0-4.8); Lymphocytes % (A) 21 %; MCH 30.9 pg (25.0-35.0); MCHC 34.4 g/dL (31.0-37.0); MCV 89.7 fL (80.0-100.0); Mean Platelet Volume 8.1; Monocytes # (A) 0.6 k/uL (0-1.0); Monocytes % (A) 11 %; Neutrophils # (A) 3.4 k/uL (1.3-7.7); Neutrophils % (A) 64 %; Platelet Count 115 k/uL (150-450); RBC 4.38 m/uL (3.80-5.40); RDW 13.5 % (11.5-15.5); WBC 5.3 k/uL (3.8-10.6)
--- NOTE | 2021-06-30 13:33 | XR ---
EXAMINATION TYPE: XR chest 1V portable DATE OF EXAM: 06/30/2021 COMPARISON: NONE HISTORY: Shortness of breath TECHNIQUE: Frontal and lateral views of the chest are obtained. FINDINGS: Scattered senescent parenchymal changes noted. Hyperinflation compatible with COPD. No evidence for infiltrate. No evidence for atelectasis. Heart size is stable. Mediastinal structures are stable and grossly unremarkable. No evidence for hilar prominence. Degenerative changes dorsal spine. IMPRESSION: 1. No evidence for acute pulmonary disease.
--- NOTE | 2021-06-30 13:35 | ED ---
General Adult HPI - General Chief complaint: Upper Respiratory Infection Stated complaint: COVID + Source: patient, EMS Mode of arrival: EMS Limitations: no limitations - History of Present Illness Initial comments: 81-year-old female past medical history of A. fib on Coumadin presents to the emergency department with weakness. Patient recently hospitalized on the second of this month after she had a fall. She was discharged home with home care. Reports that approximately 7 days ago she began feeling more weak than normal. Home care came to the house last week and was concerned that the patient had a new illness. They recommended testing Covid. Patient went to [facility] drive-through on Wednesday. Testing came back positive. Patient's nonvaccinated. She did sustain a fall at home on Wednesday. States that she has been afraid to get out of bed due to the fall. She has had a decreased appetite. Daughter was concerned as she is unable to care for the patient and EMS was called. Patient admits to mild shortness of breath. No chest pain. No nausea, vomiting or diarrhea - Related Data Home Medications Medication Instructions Recorded Confirmed Divalproex [Depakote] 250 mg PO BID 12/22/17 06/30/21 Levothyroxine Sodium [Synthroid] 75 mcg PO DAILY 12/22/17 06/30/21 Lisinopril-Hctz 20-25 mg 1 tab PO DAILY 12/22/17 06/30/21 [Zestoretic 20-25] Metoprolol Tartrate 25 mg PO BID 12/22/17 06/30/21 Warfarin [Coumadin] 1 mg PO W/SUPPER 12/22/17 06/30/21 Zolpidem Tartrate [Ambien] 10 mg PO HS 12/22/17 06/30/21 Fluticasone/Salmeterol [Advair 2 puff INHALATION RT-BID 06/03/21 06/30/21 100-50 Diskus] Allergies Allergy/AdvReac Type Severity Reaction Status Date / Time No Known Allergies Allergy Verified 06/30/21 15:28 Review of Systems ROS Statement: Those systems with pertinent positive or pertinent negative responses have been documented in the HPI. ROS Other: All systems not noted in ROS Statement are negative. Past Medical History Past Medical History: Atrial Fibrillation, Asthma, Hyperlipidemia, Hypertension History of Any Multi-Drug Resistant Organisms: None Reported Past Surgical History: Appendectomy Additional Past Surgical History / Comment(s): laser for gallstone Past Anesthesia/Blood Transfusion Reactions: No Reported Reaction Additional Past Anesthesia/Blood Transfusion Reaction / Comment(s): Last blood transfusion 08/1969. No reaction. Past Psychological History: No Psychological Hx Reported Smoking Status: Never smoker Past Alcohol Use History: Occasional Past Drug Use History: None Reported - Past Family History Mother Family Medical History: CVA/TIA Father Family Medical History: Cancer General Exam Limitations: no limitations Course Vital Signs 06/30/21 06/30/21 06/30/21 12:47 12:56 13:59 Temperature Pulse Rate 100 110 H Respiratory 18 18 16 Rate Blood Pressure 138/80 115/72 O2 Sat by Pulse 95 98 Oximetry 06/30/21 20:07 Temperature 97.8 F Pulse Rate 104 H Respiratory 18 Rate Blood Pressure 110/63 O2 Sat by Pulse 98 Oximetry EKG Findings - EKG Comments: EKG Findings:: EKG demonstrates A. fib with a rate of 102. QRS 80. QTC of 424. No acute ST segment elevations or depressions Medical Decision Making - Medical Decision Making Upon arrival patient is placed into a hallway 10. Initial saturations are 94%. Patient's oxygen is turned off. We did conduct laboratory studies. Patient is swabbed for Covid. Chest x-rays performed. Patient is positive for Covid. Magnesium 1.2. Chest x-ray performed which demonstrates no evidence for acute cardiopulmonary disease. Patient does have a decrease in her oxygen saturations down to 96%. She is placed back on 2 L of oxygen. Patient given dexamethasone, Ventolin inhaler. Patient's magnesium was replaced and she started on 50 mL of normal saline per hour. Recommend admission for hypoxia versus patient did agree to. Spoke with Dr. Daniels who agreed to admit the patient. Pulmonology is placed on consult. She remained in stable condition awaiting about on the floor - Lab Data Result diagrams: 06/30/21 13:15 06/30/21 13:15 Lab Results 06/30/21 06/30/21 06/30/21 Range/Units 13:15 13:15 13:15 WBC 5.3 (3.8-10.6) k/uL RBC 4.38 (3.80-5.40) m/uL Hgb 13.5 (11.4-16.0) gm/dL Hct 39.3 (34.0-46.0) % MCV 89.7 (80.0-100.0) fL MCH 30.9 (25.0-35.0) pg MCHC 34.4 (31.0-37.0) g/dL RDW 13.5 (11.5-15.5) % Plt Count 115 L (150-450) k/uL MPV 8.1 Neutrophils % 64 % Lymphocytes % 21 % Monocytes % 11 % Eosinophils % 1 % Basophils % 1 % Neutrophils # 3.4 (1.3-7.7) k/uL Lymphocytes # 1.1 (1.0-4.8) k/uL Monocytes # 0.6 (0-1.0) k/uL Eosinophils # 0.0 (0-0.7) k/uL Basophils # 0.0 (0-0.2) k/uL PT 26.1 H (9.0-12.0) sec INR 2.7 H (<1.2) APTT 39.4 H (22.0-30.0) sec Sodium 132 L (137-145) mmol/L Potassium 3.8 (3.5-5.1) mmol/L Chloride 94 L (98-107) mmol/L Carbon Dioxide 29 (22-30) mmol/L Anion Gap 9 mmol/L BUN 20 H (7-17) mg/dL Creatinine 0.74 (0.52-1.04) mg/dL Est GFR (CKD-EPI)AfAm 89 (>60 ml/min/1.73 sqM) Est GFR (CKD-EPI)NonAf 77 (>60 ml/min/1.73 sqM) Glucose 98 (74-99) mg/dL Plasma Lactic Acid Andrew (0.7-2.0) mmol/L Calcium 8.6 (8.4-10.2) mg/dL Magnesium 1.2 L (1.6-2.3) mg/dL Total Bilirubin 0.6 (0.2-1.3) mg/dL AST 31 (14-36) U/L ALT 12 (4-34) U/L Alkaline Phosphatase 50 (38-126) U/L Total Protein 6.5 (6.3-8.2) g/dL Albumin 3.4 L (3.5-5.0) g/dL Coronavirus (PCR) (Not Detectd) 06/30/21 06/30/21 Range/Units 13:15 13:15 WBC (3.8-10.6) k/uL RBC (3.80-5.40) m/uL Hgb (11.4-16.0) gm/dL Hct (34.0-46.0) % MCV (80.0-100.0) fL MCH (25.0-35.0) pg MCHC (31.0-37.0) g/dL RDW (11.5-15.5) % Plt Count (150-450) k/uL MPV Neutrophils % % Lymphocytes % % Monocytes % % Eosinophils % % Basophils % % Neutrophils # (1.3-7.7) k/uL Lymphocytes # (1.0-4.8) k/uL Monocytes # (0-1.0) k/uL Eosinophils # (0-0.7) k/uL Basophils # (0-0.2) k/uL PT (9.0-12.0) sec INR (<1.2) APTT (22.0-30.0) sec Sodium (137-145) mmol/L Potassium (3.5-5.1) mmol/L Chloride (98-107) mmol/L Carbon Dioxide (22-30) mmol/L Anion Gap mmol/L BUN (7-17) mg/dL Creatinine (0.52-1.04) mg/dL Est GFR (CKD-EPI)AfAm (>60 ml/min/1.73 sqM) Est GFR (CKD-EPI)NonAf (>60 ml/min/1.73 sqM) Glucose (74-99) mg/dL Plasma Lactic Acid Andrew 1.4 (0.7-2.0) mmol/L Calcium (8.4-10.2) mg/dL Magnesium (1.6-2.3) mg/dL Total Bilirubin (0.2-1.3) mg/dL AST (14-36) U/L ALT (4-34) U/L Alkaline Phosphatase (38-126) U/L Total Protein (6.3-8.2) g/dL Albumin (3.5-5.0) g/dL Coronavirus (PCR) Detected A (Not Detectd) Disposition Clinical Impression: COVID-19, Hypoxia Disposition: ADMITTED IP TO THIS [facility] Condition: Stable Is patient prescribed a controlled substance at d/c from ED?: No Decision to Admit Reason: Admit from EC Decision Date: 06/30/21 Decision Time: 15:19
[2021-06-30 13:47] LABS: INR 2.7 (<1.2); Partial Thromboplastin Time 39.4 sec (22.0-30.0); Prothrombin Time 26.1 sec (9.0-12.0)
[2021-06-30 14:03] LABS: Albumin 3.4 g/dL (3.5-5.0); Calcium 8.6 mg/dL (8.4-10.2); Magnesium 1.2 mg/dL (1.6-2.3); Potassium 3.8 mmol/L (3.5-5.1); Total Bilirubin 0.6 mg/dL (0.2-1.3); Total Protein 6.5 g/dL (6.3-8.2)
[2021-06-30] MEDS ORDERED: NALOXONE 0.4 MG/ML 1 ML VIAL IV PRN (15:19)
[2021-06-30] MEDS ORDERED: IBUPROFEN 400 MG TAB PO PRN (15:19)
[2021-06-30] MEDS ORDERED: ACETAMINOPHEN TAB 325 MG TAB PO PRN (15:19)
[2021-06-30] MEDS: SODIUM CHLORIDE 0.9% 1,000 ML IV SCH (16:19)
[2021-06-30] MEDS: MAGNESIUM SULFATE-D5W PMX 1 GM in DEXTROSE/WATER 1 100ML.BAG IVPB SCH ×2 (16:21→21:11)
[2021-06-30] MEDS: DEXAMETHASONE SOD PHOSPHATE 10 MG/ML 1 ML VIAL IVP SCH (16:22)
[2021-06-30] MEDS: METOPROLOL TARTRATE 25 MG TAB PO SCH (21:10)
[2021-06-30] MEDS: DIVALPROEX 250 MG TABLET.DR PO SCH (21:11)
[2021-06-30] MEDS: ZOLPIDEM 10 MG TAB PO SCH (21:45)
[2021-06-30] MEDS: WARFARIN 1 MG TAB PO SCH (21:45)
[2021-06-30] MEDS: ALBUTEROL HFA INHALER INHALATION SCH (21:54)
[2021-07-01] MEDS: ALBUTEROL HFA INHALER INHALATION SCH ×4 (07:47→21:31)
[2021-07-01] MEDS: METOPROLOL TARTRATE 25 MG TAB PO SCH ×2 (08:51→22:12)
[2021-07-01] MEDS: LEVOTHYROXINE 75 MCG TAB PO SCH (08:51)
[2021-07-01] MEDS: DIVALPROEX 250 MG TABLET.DR PO SCH ×2 (08:52→22:12)
[2021-07-01] MEDS: DEXAMETHASONE SOD PHOSPHATE 10 MG/ML 1 ML VIAL IVP SCH (08:52)
[2021-07-01 09:11] LABS: Basophils # (A) 0.01 X 10*3/uL (0.00-0.10); Basophils % (A) 0.3 %; Eosinophils # (A) 0 X 10*3/uL (0.04-0.35); Eosinophils % (A) 0 %; HCT 40.7 % (37.2-46.3); HGB 12.8 g/dL (12.0-15.0); Lymphocytes # (A) 0.79 X 10*3/uL (0.90-5.00); Lymphocytes % (A) 23.7 %; MCH 29.4 pg (27.0-32.0); MCHC 31.4 g/dL (32.0-37.0); MCV 93.6 fL (80.0-97.0); Monocytes # (A) 0.32 X 10*3/uL (0.20-1.00); Monocytes % (A) 9.6 %; Neutrophils # (A) 2.19 X 10*3/uL (1.80-7.70); Neutrophils % (A) 65.8 %; Platelet Count 138 X 10*3/uL (140-440); RBC 4.35 X 10*6/uL (4.10-5.20); RDW 13.7 % (11.5-14.5); WBC 3.33 X 10*3/uL (4.50-10.00)
[2021-07-01 09:21] LABS: INR 2.85 (0.90-1.11); Prothrombin Time 29.8 sec (9.9-11.9)
[2021-07-01 09:44] LABS: African American GFR (CKD) 80.1 (60.0-200.0); Anion Gap 12.8 mmol/L (10.00-18.00); BUN/Creat Ratio 20.5 Ratio (12.00-20.00); Blood Urea Nitrogen 16.4 mg/dL (9.0-27.0); Calcium 8.6 mg/dL (8.7-10.3); Carbon Dioxide 28.2 mmol/L (20.0-27.5); Non-African American GFR(CKD) 69.1 (60.0-200.0); Potassium 4.3 mmol/L (3.5-5.5)
[2021-07-01] MEDS ORDERED: AZITHROMYCIN 1,200 MG/30 ML BOTTLE PO SCH (11:00)
[2021-07-01] MEDS: SYMBICORT 80-4.5 MCG INHALER INHALATION SCH ×2 (11:17→21:31)
--- NOTE | 2021-07-01 14:37 | P.HPIM ---
History of Present Illness H&P Date: 07/01/21 HISTORY OF PRESENT ILLNESS This is a 81-year-old female patient of Dr. Noel Angulo with past medical history of atrial fibrillation on chronic Coumadin, mild intermittent asthma, hypertension, hyperlipidemia, hypothyroidism. Patient states she has had symptoms for the past 10 days and went to [facility] on 06/25 for covert testing which came back positive. She denies being on any medications for this. Patient had a fall at home on Wednesday but did not pass out. She has decreased appetite and was not getting out of bed, daughter was concerned and called EMS. Patient does have some shortness of breath. No nausea, vomiting or diarrhea. No chest pain. Patient was brought into the [facility] emergency center. EKG was atrial fibrillation. She was found to be afebrile, heart rate 100, blood pressure 138/80, pulse ox 95% on room air. CBC was unremarkable except for platelet count of 115. INR 2.7. Sodium 132, BUN 20 creatinine 0.74. Magnesium 1.2 valproic acid 41.8. Lawrence virus PCR detected. Liver function tests were normal. INR 2.7. Chest x-ray reveals no acute pulmonary process. Patient started on azithromycin for bronchitis, albuterol, Symbicort, dexamethasone and continued on Coumadin, pulmonary consult. Patient is seen today in the emergency center waiting for a bed on the [facility] floor. REVIEW OF SYSTEMS Constitutional: No fever, no chills, no night sweats. No weight change. Rep orted weakness, Reported fatigue Reported lethargy. No daytime sleepiness. EENT: No headache. No blurred vision or double vision, no loss of vision. No dizziness. No nasal drainage or congestion. No epistaxis. No sore throat. Lungs: Reports shortness of breath, reports cough, no sputum production. No wheezing. Cardiovascular: No chest pain, no lower extremity edema. No palpitations. No paroxysmal nocturnal dyspnea. No orthopnea. No lightheadedness or dizziness. No syncopal episodes. Abdominal: No abdominal pain. No nausea, vomiting. No diarrhea. No constipation. No bloody or tarry stools. No loss of appetite. Genitourinary: No dysuria, increased frequency, urgency. No urinary retention. Musculoskeletal: No myalgias. Reported muscle weakness, no gait dysfunction, no frequent falls. No back pain. No neck pain. Integumentary: No wounds, no lesions. No rash or pruritus. No unusual bruising. No change in hair or nails. Neurologic: No aphasia. No facial droop. No change in mentation. No head injury. No headache. No paralysis. No paresthesia. Psychiatric: No depression. No anxiety. No mood swings. Endocrine: No abnormal blood sugars. No weight change. No excessive sweating or thirst. No cold intolerance. SOCIAL HISTORY Patient is a lifelong nonsmoker but 42 years of secondhand smoke exposure with her who has 3 years ago. No alcohol, marijuana or illicit drug use. Her daughter lives with her and 3 children live nearby. FAMILY HISTORY Mother at age 70 from CVA. Father at age 70 from pancreatic cancer. Patient does not have any sisters. She has 1 brother that at age 63 after a tree fell on him. She has a total of 7 children, 6 sons and 1 daughter. One son has from suicide with history of pneumonia and asthma. PHYSICAL EXAMINATION Gen: This is an 81-year-old female. She is resting on the ER stretcher and appears to be comfortable. HEENT: Head is atraumatic, normocephalic. Pupils equal, round. Sclerae is anicteric. NECK: Supple. No JVD. No lymphadenopathy. No thyromegaly. LUNGS: Diminished bilaterally, bilateral crackles. No intercostal retractions. HEART: Regular rate and rhythm. No murmur. ABDOMEN: Soft. Bowel sounds are present. No masses. No tenderness. EXTREMITIES: No pedal edema. No calf tenderness. NEUROLOGICAL: Patient is awake, alert and oriented x3. Cranial nerves 2 through 12 are grossly intact. ASSESSMENT AND PLAN 1. COVID-19 infection. Patient started on albuterol inhaler 4 times daily, azithromycin, Symbicort twice daily, Decadron 6 mg IV push daily, pulmonary consult Fall, mechanical with generalized weakness. Consult with PT and OT. 2. Thrombocytopenia secondary to infection. 3. Fall without loss of consciousness. 4. Hypomagnesemia. Status post replacement. 5. Hypertension. Zestoretic 2024 one daily with parameters, continue Lopressor 25 mg twice daily. 6. Mild intermittent asthma, stable. Continue Symbicort 2 puffs twice daily. 7. Hyperlipidemia. 8. Chronic atrial fibrillation with RVR. Continue Lopressor 25 mg twice daily and Coumadin, pharmacy dosing. 9. GI prophylaxis. Protonix. 10. DVT prophylaxis. Continue Coumadin, pharmacy dosing Patient will be admitted to the hospital for a minimum of 2 nights. DISCHARGE PLAN TBD. PT and OT consults Impression and plan of care have been directed as dictated by the signing physician. Dianna Souza nurse practitioner acting as scribe for signing physician. Past Medical History Past Medical History: Atrial Fibrillation, Asthma, Hyperlipidemia, Hypertension History of Any Multi-Drug Resistant Organisms: None Reported Past Surgical History: Appendectomy Additional Past Surgical History / Comment(s): laser for gallstone Past Anesthesia/Blood Transfusion Reactions: No Reported Reaction Additional Past Anesthesia/Blood Transfusion Reaction / Comment(s): Last blood transfusion 08/1969. No reaction. Past Psychological History: No Psychological Hx Reported Smoking Status: Never smoker Past Alcohol Use History: Occasional Past Drug Use History: None Reported - Past Family History Mother Family Medical History: CVA/TIA Father Family Medical History: Cancer Medications and Allergies Home Medications Medication Instructions Recorded Confirmed Type Divalproex [Depakote] 250 mg PO BID 12/22/17 06/30/21 History Levothyroxine Sodium [Synthroid] 75 mcg PO DAILY 12/22/17 06/30/21 History Lisinopril-Hctz 20-25 mg 1 tab PO DAILY 12/22/17 06/30/21 History [Zestoretic 20-25] Metoprolol Tartrate 25 mg PO BID 12/22/17 06/30/21 History Warfarin [Coumadin] 1 mg PO W/SUPPER 12/22/17 06/30/21 History Zolpidem Tartrate [Ambien] 10 mg PO HS 12/22/17 06/30/21 History Fluticasone/Salmeterol [Advair 2 puff INHALATION RT-BID 06/03/21 06/30/21 History 100-50 Diskus] Allergies Allergy/AdvReac Type Severity Reaction Status Date / Time No Known Allergies Allergy Verified 06/30/21 15:28 Physical Exam Vitals: Vital Signs Temp Pulse Resp BP Pulse Ox 07/01/21 07:43 98.8 F 77 20 127/83 96 07/01/21 05:17 84 20 121/75 95 06/30/21 20:07 97.8 F 104 H 18 110/63 98 06/30/21 13:59 110 H 16 115/72 98 06/30/21 12:56 18 06/30/21 12:47 100 18 138/80 95 Results CBC & Chem 7: 07/01/21 04:19 07/01/21 04:19 Labs: Abnormal Lab Results - Last 24 Hours (Table) 06/30/21 06/30/21 06/30/21 Range/Units 13:15 13:15 13:15 WBC (4.50-10.00) X 10*3/uL MCHC (32.0-37.0) g/dL Plt Count 115 L (150-450) k/uL Lymphocytes # (0.90-5.00) X 10*3/uL Eosinophils # (0.04-0.35) X 10*3/uL PT 26.1 H (9.0-12.0) sec INR 2.7 H (<1.2) APTT 39.4 H (22.0-30.0) sec Sodium 132 L (137-145) mmol/L Chloride 94 L (98-107) mmol/L Carbon Dioxide (20.0-27.5) mmol/L BUN 20 H (7-17) mg/dL BUN/Creatinine Ratio (12.00-20.00) Ratio Glucose (70-110) mg/dL Calcium (8.7-10.3) mg/dL Magnesium 1.2 L (1.6-2.3) mg/dL Albumin 3.4 L (3.5-5.0) g/dL Coronavirus (PCR) (Not Detectd) 06/30/21 07/01/21 07/01/21 Range/Units 13:15 04:19 04:19 WBC 3.33 L (4.50-10.00) X 10*3/uL MCHC 31.4 L (32.0-37.0) g/dL Plt Count 138 L (150-450) k/uL Lymphocytes # 0.79 L (0.90-5.00) X 10*3/uL Eosinophils # 0 L (0.04-0.35) X 10*3/uL PT (9.0-12.0) sec INR (<1.2) APTT (22.0-30.0) sec Sodium (137-145) mmol/L Chloride 94 L (98-107) mmol/L Carbon Dioxide 28.2 H (20.0-27.5) mmol/L BUN (7-17) mg/dL BUN/Creatinine Ratio 20.50 H (12.00-20.00) Ratio Glucose 153 H (70-110) mg/dL Calcium 8.6 L (8.7-10.3) mg/dL Magnesium (1.6-2.3) mg/dL Albumin (3.5-5.0) g/dL Coronavirus (PCR) Detected A (Not Detectd) 07/01/21 Range/Units 04:19 WBC (4.50-10.00) X 10*3/uL MCHC (32.0-37.0) g/dL Plt Count (150-450) k/uL Lymphocytes # (0.90-5.00) X 10*3/uL Eosinophils # (0.04-0.35) X 10*3/uL PT 29.8 H (9.0-12.0) sec INR 2.85 H (<1.2) APTT (22.0-30.0) sec Sodium (137-145) mmol/L Chloride (98-107) mmol/L Carbon Dioxide (20.0-27.5) mmol/L BUN (7-17) mg/dL BUN/Creatinine Ratio (12.00-20.00) Ratio Glucose (70-110) mg/dL Calcium (8.7-10.3) mg/dL Magnesium (1.6-2.3) mg/dL Albumin (3.5-5.0) g/dL Coronavirus (PCR) (Not Detectd)
--- NOTE | 2021-07-01 16:15 | P.PN ---
Subjective Progress Note Date: 07/01/21 81-year-old female patient, currently hospitalized for COVID 19 related pneumon ia. The patient started approximately a week ago to feel more weak and more fatigued than normal. She was seen by home care and there was a concern of any underlying COVID 19 infection. For that reason, testing was recommended and the patient went to [facility] drive-through 3 days ago and the patient tested positive for COVID 19 infection. The patient is not vaccinated. The patient subsequently became more weak, she had a fall at home on Wednesday. She was scared to get out of her bed due to falls. Her appetite was down and she admitted to have some worsening shortness of breath and for that reason, she end up coming into the hospital and she is currently admitted. No nausea. No vomiting. No abdominal pain. No diarrhea. She is known to have chronic atrial fibrillation maintained on Coumadin on outpatient basis and she also has history of asthma, hypertension and hyperlipidemia. In emergency, the patient was found to be slightly tachycardic. Normal blood pressure. White cell count was at 5.3 with hemoglobin 13.5. Normal renal function. Normal electrolytes. The patient had a lactic acid level of 1.4. The chest x-ray showed no evidence of any acute pneumonia and the patient's pulse ox is 95% on room air oxygen. Currently on 2 L with a pulse ox of 98%. The patient is currently on IV fluids normal saline today to 50 mL an hour. On 07/01/2021, the patient is on 2 L of oxygen nasal cannula and she is at 96%. She has some limited congested cough. No significant sputum production. No shortness of breath. She is hemodynamically stable. The patient's had a INR of 2.85 on today's evaluation. Electrolytes are all within normal limits. BUN is at 60 with a creatinine of 0.8. The CBC showed a white cell count of 3.3 with a hemoglobin of 12.8. Platelet count is improved and is 138. The patient currently is in atrial fibrillation. Coumadin level is therapeutic with an INR of 2.85.. We have this patient on Decadron 6 mg on a daily basis and the patient is also on Symbicort maintenance and albuterol HFA 4 times a day [id number]. She is on metoprolol for rate control. Objective - Vital Signs Vital signs: Vital Signs Temp 98.8 F 07/01/21 07:43 Pulse 74 07/01/21 13:16 Resp 18 07/01/21 13:16 BP 126/64 07/01/21 13:16 Pulse Ox 96 07/01/21 13:16 Intake & Output 06/30/21 07/01/21 07/01/21 18:59 06:59 18:59 Weight 83.007 kg - Exam Gen. appearance the patient is calm and comfortable likely distress and the patient's breathing is nonlabored on 2 L about 2 by nasal cannula The patient appeared well nourished and normally developed. Vital signs as documented. Head exam is unremarkable. No scleral icterus or corneal arcus noted. Neck is without jugular venous distension, thyromegaly, or carotid brui ts. Carotid upstrokes are brisk bilaterally. Lungs are clear to auscultation and percussion. Cardiac exam reveals the PMI to be normally sized and situated. Rhythm is regular. First and second heart sounds normal. No murmurs, rubs or gallops. Abdominal exam reveals normal bowel sounds, no masses, no organomegaly and no aortic enlargement. Extremities are nonedematous and both femoral and pedal pulses are normal. - Labs CBC & Chem 7: 07/01/21 04:19 07/01/21 04:19 Labs: Abnormal Lab Results - Last 24 Hours (Table) 07/01/21 07/01/21 07/01/21 Range/Units 04:19 04:19 04:19 WBC 3.33 L (4.50-10.00) X 10*3/uL MCHC 31.4 L (32.0-37.0) g/dL Plt Count 138 L (140-440) X 10*3/uL Lymphocytes # 0.79 L (0.90-5.00) X 10*3/uL Eosinophils # 0 L (0.04-0.35) X 10*3/uL PT 29.8 H (9.9-11.9) sec INR 2.85 H (0.90-1.11) Chloride 94 L (96-109) mmol/L Carbon Dioxide 28.2 H (20.0-27.5) mmol/L BUN/Creatinine Ratio 20.50 H (12.00-20.00) Ratio Glucose 153 H (70-110) mg/dL Calcium 8.6 L (8.7-10.3) mg/dL Assessment and Plan Plan: 1 acute COVID 19 infection without clear evidence of pneumonia at this point in time. The patient generalized weakness, fatigue, and so limited shortness of breath. Nevertheless, the chest x-ray was clear and the patient is actually taking normally and there is no evidence of any hypoxemia this point in time. The patient was placed on 2 L of oxygen by nasal cannula. Nevertheless she is able to maintain a saturation above 90% even on room air oxygen. 2 chronic atrial fibrillation on warfarin on outpatient basis, PT/INR is therapeutic at this point in time 3 chronic bronchial asthma, moderate persistent in nature maintained on Advair and outpatient basis 4 hypertension 5 hyperlipidemia Plan Clinically stable and the patient remains on oxygen 2 L. No signs of any respiratory compromise or decompensation. Check and symmetrical markers including LDH, CRP, d-dimer is an pro-calcitonin Continued evaluation with warfarin, PT/INR is therapeutic at this point in time We'll continue to follow
[2021-07-01 17:03] LABS: C Reactive Protein 7.1 mg/dL (<1.0)
[2021-07-01] MEDS ORDERED: AZITHROMYCIN 250 MG TAB PO SCH (18:00)
[2021-07-01] MEDS: SODIUM CHLORIDE 0.9% 1,000 ML IV SCH ×2 (18:18→22:12)
[2021-07-01] MEDS: WARFARIN 1 MG TAB PO SCH (19:22)
[2021-07-01] MEDS: ZOLPIDEM 10 MG TAB PO SCH (22:12)
[2021-07-02 07:27] LABS: Prothrombin Time 54.8 sec (9.0-12.0)
[2021-07-02 07:41] LABS: INR 5.7 (<1.2)
[2021-07-02] MEDS: ALBUTEROL HFA INHALER INHALATION SCH ×4 (08:17→20:44)
[2021-07-02] MEDS: SYMBICORT 80-4.5 MCG INHALER INHALATION SCH ×2 (08:17→20:44)
[2021-07-02] MEDS ORDERED: PHYTONADIONE ORAL 5 MG/5 ML ORAL.SYRG PO STA (08:30)
[2021-07-02] MEDS: METOPROLOL TARTRATE 25 MG TAB PO SCH ×2 (08:53→21:12)
[2021-07-02] MEDS: LISINOPRIL-HCTZ 20-25 MG 1 EACH TAB PO SCH (08:53)
[2021-07-02] MEDS: DEXAMETHASONE SOD PHOSPHATE 10 MG/ML 1 ML VIAL IVP SCH (08:53)
[2021-07-02] MEDS: DIVALPROEX 250 MG TABLET.DR PO SCH ×2 (08:53→21:12)
[2021-07-02] MEDS: LEVOTHYROXINE 75 MCG TAB PO SCH (08:53)
[2021-07-02 11:58] LABS: C Reactive Protein 4.1 mg/dL (0.00-0.80)
--- NOTE | 2021-07-02 14:25 | P.PN ---
Subjective Progress Note Date: 07/02/21 HISTORY OF PRESENT ILLNESS This is a 81-year-old female patient of Dr. Noel Angulo with past medical history of atrial fibrillation on chronic Coumadin, mild intermittent asthma, hypertension, hyperlipidemia, hypothyroidism. Patient states she has had symptoms for the past 10 days and went to [facility] on 06/25 for covert testing which came back positive. She denies being on any medications for this. Patient had a fall at home on Wednesday but did not pass out. She has decreased appetite and was not getting out of bed, daughter was concerned and called EMS. Patient does have some shortness of breath. No nausea, vomiting or diarrhea. No chest pain. Patient was brought into the [facility] emergency center. EKG was atrial fibrillation. She was found to be afebrile, heart rate 100, blood pressure 138/80, pulse ox 95% on room air. CBC was unremarkable except for platelet count of 115. INR 2.7. Sodium 132, BUN 20 creatinine 0.74. Magnesium 1.2 valproic acid 41.8. Lawrence virus PCR detected. Liver function tests were normal. INR 2.7. Chest x-ray reveals no acute pulmonary process. Patient started on azithromycin for bronchitis, albuterol, Symbicort, dexamethasone and continued on Coumadin, pulmonary consult. Patient is seen today in the emergency center waiting for a bed on the [facility] floor. 12: 10 has been seen by pulmonary medicine with no clear evidence of pneumonia at this time. Patient has been afebrile, heart rate 74, blood pressure 08/05/1968, pulse ox 94% on 2 L nasal cannula. INR today is 5.7 and patient ordered for vitamin K 5 mg once. D-dimer 0.32. LDH 285, C-reactive protein 4.1. Patient is continued on Ventolin inhaler, azithromycin, Symbicort dexamethasone. REVIEW OF SYSTEMS Constitutional: No fever, no chills, no night sweats. No weight change. Reported weakness, Reported fatigue Reported lethargy. No daytime sleepiness. EENT: No headache. No blurred vision or double vision, no loss of vision. No dizziness. No nasal drainage or congestion. No epistaxis. No sore throat. Lungs: Reports shortness of breath, reports cough, no sputum production. No wh eezing. Cardiovascular: No chest pain, no lower extremity edema. No palpitations. No paroxysmal nocturnal dyspnea. No orthopnea. No lightheadedness or dizziness. No syncopal episodes. Abdominal: No abdominal pain. No nausea, vomiting. No diarrhea. No constipation. No bloody or tarry stools. No loss of appetite. Genitourinary: No dysuria, increased frequency, urgency. No urinary retention. Musculoskeletal: No myalgias. Reported muscle weakness, no gait dysfunction, no frequent falls. No back pain. No neck pain. Integumentary: No wounds, no lesions. No rash or pruritus. No unusual bruising. No change in hair or nails. Neurologic: No aphasia. No facial droop. No change in mentation. No head injury. No headache. No paralysis. No paresthesia. Psychiatric: No depression. No anxiety. No mood swings. Endocrine: No abnormal blood sugars. No weight change. PHYSICAL EXAMINATION Gen: This is an 81-year-old female. She is resting on the ER stretcher and appears to be comfortable. HEENT: Head is atraumatic, normocephalic. Pupils equal, round. Sclerae is anicteric. NECK: Supple. No JVD. No lymphadenopathy. No thyromegaly. LUNGS: Diminished bilaterally, bilateral crackles. No intercostal retractions. HEART: Regular rate and rhythm. No murmur. ABDOMEN: Soft. Bowel sounds are present. No masses. No tenderness. EXTREMITIES: No pedal edema. No calf tenderness. NEUROLOGICAL: Patient is awake, alert and oriented x3. Cranial nerves 2 through 12 are grossly intact. ASSESSMENT AND PLAN 1. COVID-19 infection. Patient started on albuterol inhaler 4 times daily, azithromycin, Symbicort twice daily, Decadron 6 mg IV push daily, pulmonary consult appreciated. 2. Thrombocytopenia secondary to infection. 3. Fall without loss of consciousness. Consult with PT and OT. 4. Hypomagnesemia. Status post replacement. 5. Hypertension. Zestoretic 2024 one daily with parameters, continue Lopres sor 25 mg twice daily. 6. Mild intermittent asthma, stable. Continue Symbicort 2 puffs twice daily. 7. Hyperlipidemia. 8. Chronic atrial fibrillation with RVR. Continue Lopressor 25 mg twice daily and Coumadin, pharmacy dosing. 9. Hypercoagulopathy secondary to Covid 19 and Coumadin. Vitamin K 5 mg oral 1 dose. Pharmacy is dosing Coumadin. 10. GI prophylaxis. Protonix. 11. DVT prophylaxis. Continue Coumadin, pharmacy dosing DISCHARGE PLAN Return home Impression and plan of care have been directed as dictated by the signing physician. Dianna Souza nurse practitioner acting as scribe for signing physician. Objective - Vital Signs Vital signs: Vital Signs Temp 97.6 F 07/02/21 10:06 Pulse 93 07/02/21 10:06 Resp 18 07/02/21 10:06 BP 116/68 07/02/21 10:06 Pulse Ox 89 L 07/02/21 10:06 Intake & Output 07/01/21 07/02/21 07/02/21 18:59 06:59 18:59 Output Total 300 250 Balance -300 -250 Output: Urine 300 250 Other: Voiding Method External Catheter # Voids 0 2 - Labs CBC & Chem 7: 07/01/21 04:19 07/01/21 04:19 Labs: Abnormal Lab Results - Last 24 Hours (Table) 07/01/21 07/02/21 Range/Units 16:30 06:33 PT 54.8 H (9.0-12.0) sec INR 5.7 H* (<1.2) Lactate Dehydrogenase 628 H (313-618) U/L C-Reactive Protein 7.1 H (<1.0) mg/dL
--- NOTE | 2021-07-02 16:29 | P.PN ---
Subjective Progress Note Date: 07/02/21 Principal diagnosis: Acute COVID-19 infection 81-year-old female patient, currently hospitalized for COVID 19 related pneumonia. The patient started approximately a week ago to feel more weak and more fatigued than normal. She was seen by home care and there was a concern of any underlying COVID 19 infection. For that reason, testing was recommended and the patient went to [facility] drive-through 3 days ago and the patient tested positive for COVID 19 infection. The patient is not vaccinated. The patient subsequently became more weak, she had a fall at home on Wednesday. She was scared to get out of her bed due to falls. Her appetite was down and she admitted to have some worsening shortness of breath and for that reason, she end up coming into the hospital and she is currently admitted. No nausea. No vomiting. No abdominal pain. No diarrhea. She is known to have chronic atrial fibrillation maintained on Coumadin on outpatient basis and she also has history of asthma, hypertension and hyperlipidemia. In emergency, the patient was found to be slightly tachycardic. Normal blood pressure. White cell count was at 5.3 with hemoglobin 13.5. Normal renal function. Normal electrolytes. The patient had a lactic acid level of 1.4. The chest x-ray showed no evidence of any acute pneumonia and the patient's pulse ox is 95% on room air oxygen. Currently on 2 L with a pulse ox of 98%. The patient is currently on IV fluids normal saline today to 50 mL an hour. On 07/01/2021, the patient is on 2 L of oxygen nasal cannula and she is at 96%. She has some limited congested cough. No significant sputum production. No shortness of breath. She is hemodynamically stable. The patient's had a INR of 2.85 on today's evaluation. Electrolytes are all within normal limits. BUN is at 60 with a creatinine of 0.8. The CBC showed a white cell count of 3.3 with a hemoglobin of 12.8. Platelet count is improved and is 138. The patient current ly is in atrial fibrillation. Coumadin level is therapeutic with an INR of 2.85.. We have this patient on Decadron 6 mg on a daily basis and the patient is also on Symbicort maintenance and albuterol HFA 4 times a day [id number]. She is on metoprolol for rate control. On 07/02/2021 patient seen in follow-up on medical surgical floor. She is currently on 2 L of oxygen. Pulse ox is 95%, she denies any difficulty breathing, she's been afebrile, vital signs have been stable. Chest x-ray on admission showed no evidence of any acute pulmonary disease. No cough or phlegm production. Patient is currently on Decadron 6 mg IV push daily, she is on Symbicort and Ventolin inhalers, she is on Coumadin for chronic anticoagulation for history of atrial fibrillation. Today's INR was elevated at 5.7 patient received vitamin K per primary care service. D-dimer is negative at 0.32, LDH is 285, improving, and CRP is improving and is down to 4.1. Procalcitonin level was negative at 0.09. Objective - Vital Signs Vital signs: Vital Signs Temp 97.9 F 07/02/21 14:26 Pulse 69 07/02/21 14:26 Resp 17 07/02/21 14:26 BP 98/62 07/02/21 14:26 Pulse Ox 95 07/02/21 14:26 Intake & Output 07/01/21 07/02/21 07/02/21 18:59 06:59 18:59 Intake Total 400 Output Total 300 250 Balance -300 150 Intake: Intake, IV Titration 400 Amount Sodium Chloride 0.9% 1, 400 000 ml @ 50 mls/hr IV . Q20H [facility] Rx#:[id number] Output: Urine 300 250 Other: Voiding Method External Catheter External Catheter # Voids 0 2 - Exam GENERAL EXAM: Alert, pleasant, 81-year-old white female, resting comfortably in bed, 2 L of oxygen, breathing currently, pulse ox is currently 95% comfortable in no apparent distress. HEAD: Normocephalic/atraumatic. EYES: Normal reaction of pupils, equal size. Conjunctiva pink, sclera white. NOSE: Clear with pink turbinates. THROAT: No erythema or exudates. NECK: No masses, no JVD, no thyroid enlargement, no adenopathy. CHEST: No chest wall deformity. Symmetrical expansion. LUNGS: Equal air entry with no crackles, wheeze, rhonchi or dullness. CVS: Irregular rate and rhythm, normal S1 and S2, no gallops, no murmurs, no rubs ABDOMEN: Soft, nontender. No hepatosplenomegaly, normal bowel sounds, no guarding or rigidity. EXTREMITIES: No clubbing, no edema, no cyanosis, 2+ pulses and upper and lower extremities. MUSCULOSKELETAL: Muscle strength and tone normal. SPINE: No scoliosis or deformity SKIN: No rashes CENTRAL NERVOUS SYSTEM: Alert and oriented -3. No focal deficits, tone is normal in all 4 extremities. PSYCHIATRIC: Alert and oriented -3. Appropriate affect. Intact judgment and insight. - Labs CBC & Chem 7: 07/01/21 04:19 07/01/21 04:19 Labs: Abnormal Lab Results - Last 24 Hours (Table) 07/01/21 07/02/21 07/02/21 Range/Units 16:30 06:33 06:33 PT 54.8 H (9.0-12.0) sec INR 5.7 H* (<1.2) Lactate Dehydrogenase 628 H 285 H (313-618) U/L C-Reactive Protein 7.1 H 4.10 H (<1.0) mg/dL Assessment and Plan Plan: Assessment: #1. acute COVID 19 infection without clear evidence of pneumonia at this point in time. The patient generalized weakness, fatigue, and so limited shortness of breath. Nevertheless, the chest x-ray was clear and the patient is actually taking normally and there is no evidence of any hypoxemia this point in time. The patient was placed on 2 L of oxygen by nasal cannula. Nevertheless she is able to maintain a saturation above 90% even on room air oxygen. #2. Chronic atrial fibrillation on warfarin on outpatient basis #3. Chronic bronchial asthma, moderate persistent in nature maintained on Advair and outpatient basis #4. Hypertension #5. Hyperlipidemia #6. Supratherapeutic INR, without evidence of bleeding, patient received vitamin K, will be followed Plan: Obtain room air pulse ox Patient is on minimal supplemental oxygen, denies any dyspnea Admission chest x-ray showed no acute pulmonary process Continue current medical treatment, continue Decadron Patient is on Coumadin for chronic anticoagulation for chronic A. fib Today's INR is elevated but there is no evidence of bleeding, patient did receive vitamin K Follow-up chest x-ray in the morning, So far no worsening dyspnea, no significant pulmonary symptoms We will follow I performed a history & physical examination of the patient and discussed their management with my nurse practitioner, Rosalva Richardson. I reviewed the nurse practitioner's note and agree with the documented findings and plan of care. Lung sounds are positive for basilar rales throughout the lung heaht. The findings and the impression was discussed with the patient. I attest to the documentation by the nurse practitioner. Time with Patient: Less than 30
[2021-07-02] MEDS ORDERED: WARFARIN 0.5 MG TAB PO ONE (18:00)
[2021-07-02] MEDS: ZOLPIDEM 10 MG TAB PO SCH (21:12)
--- NOTE | 2021-07-03 07:24 | XR ---
EXAMINATION TYPE: XR chest 1V portable DATE OF EXAM: 07/03/2021 HISTORY: Shortness of breath. COMPARISON: 06/30/2021 TECHNIQUE: Single view of the chest is submitted. FINDINGS: Demonstrated are scattered senescent parenchymal change. There is no evidence for focal infiltrate. Stable cardiomegaly. Hilar and mediastinal structures are within normal limits. Degenerative changes are seen of the dorsal spine. IMPRESSION: 1. Chronic changes without evidence for acute pulmonary disease.
[2021-07-03] MEDS: SYMBICORT 80-4.5 MCG INHALER INHALATION SCH ×2 (07:25→21:38)
[2021-07-03] MEDS: ALBUTEROL HFA INHALER INHALATION SCH ×4 (07:25→21:37)
[2021-07-03] MEDS: DEXAMETHASONE SOD PHOSPHATE 10 MG/ML 1 ML VIAL IVP SCH (07:30)
[2021-07-03] MEDS: LISINOPRIL-HCTZ 20-25 MG 1 EACH TAB PO SCH (07:30)
[2021-07-03] MEDS: LEVOTHYROXINE 75 MCG TAB PO SCH (07:30)
[2021-07-03] MEDS: DIVALPROEX 250 MG TABLET.DR PO SCH ×2 (07:30→21:07)
[2021-07-03] MEDS: METOPROLOL TARTRATE 25 MG TAB PO SCH ×2 (07:30→21:07)
[2021-07-03 10:03] LABS: INR 1.2 (<1.2); Prothrombin Time 12.3 sec (9.0-12.0)
--- NOTE | 2021-07-03 13:20 | P.PN ---
Subjective Progress Note Date: 07/03/21 Principal diagnosis: Acute COVID-19 infection 81-year-old female patient, currently hospitalized for COVID 19 related pneumonia. The patient started approximately a week ago to feel more weak and more fatigued than normal. She was seen by home care and there was a concern of any underlying COVID 19 infection. For that reason, testing was recommended and the patient went to [facility] drive-through 3 days ago and the patient tested positive for COVID 19 infection. The patient is not vaccinated. The patient subsequently became more weak, she had a fall at home on Wednesday. She was scared to get out of her bed due to falls. Her appetite was down and she admitted to have some worsening shortness of breath and for that reason, she end up coming into the hospital and she is currently admitted. No nausea. No vomiting. No abdominal pain. No diarrhea. She is known to have chronic atrial fibrillation maintained on Coumadin on outpatient basis and she also has history of asthma, hypertension and hyperlipidemia. In emergency, the patient was found to be slightly tachycardic. Normal blood pressure. White cell count was at 5.3 with hemoglobin 13.5. Normal renal function. Normal electrolytes. The patient had a lactic acid level of 1.4. The chest x-ray showed no evidence of any acute pneumonia and the patient's pulse ox is 95% on room air oxygen. Currently on 2 L with a pulse ox of 98%. The patient is currently on IV fluids normal saline today to 50 mL an hour. On 07/01/2021, the patient is on 2 L of oxygen nasal cannula and she is at 96%. She has some limited congested cough. No significant sputum production. No shortness of breath. She is hemodynamically stable. The patient's had a INR of 2.85 on today's evaluation. Electrolytes are all within normal limits. BUN is at 60 with a creatinine of 0.8. The CBC showed a white cell count of 3.3 with a hemoglobin of 12.8. Platelet count is improved and is 138. The patient current ly is in atrial fibrillation. Coumadin level is therapeutic with an INR of 2.85.. We have this patient on Decadron 6 mg on a daily basis and the patient is also on Symbicort maintenance and albuterol HFA 4 times a day [id number]. She is on metoprolol for rate control. On 07/02/2021 patient seen in follow-up on medical surgical floor. She is currently on 2 L of oxygen. Pulse ox is 95%, she denies any difficulty breathing, she's been afebrile, vital signs have been stable. Chest x-ray on admission showed no evidence of any acute pulmonary disease. No cough or phlegm production. Patient is currently on Decadron 6 mg IV push daily, she is on Symbicort and Ventolin inhalers, she is on Coumadin for chronic anticoagulation for history of atrial fibrillation. Today's INR was elevated at 5.7 patient received vitamin K per primary care service. D-dimer is negative at 0.32, LDH is 285, improving, and CRP is improving and is down to 4.1. Procalcitonin level was negative at 0.09. On 07/03/2021 patient seen in follow-up on medical surgical floor, she is on 2 L of oxygen, prophylaxis 92-94%, with ambulation patient does desaturate to 86%, and she does qualify for home oxygen, she's been afebrile, hemodynamically she is been stable, she is in no acute distress, however she has a persistent cough, which is nonproductive, appears weak overall, no acute distress, no hemoptysis, no chest pain, follow-up chest x-ray today shows no acute cardiopulmonary process. Today's labs show INR of 1.2, and her last d-dimer from yesterday was negative at 0.32, pH is 649, and CRP is 3.0. Pro calcitonin level was negative at 0.03. Patient is on Decadron 6 mg daily, she is on Coumadin on a regular basis yesterday she received vitamin K for supratherapeutic INR. she had no acute events overnight. States she would like to go home today, she has a daughter at home who is going to be available to assist with her needs Objective - Vital Signs Vital signs: Vital Signs Temp 97.6 F 07/03/21 10:00 Pulse 73 07/03/21 11:06 Resp 20 07/03/21 10:00 BP 101/67 07/03/21 10:00 Pulse Ox 95 07/03/21 11:06 Intake & Output 07/02/21 07/03/21 07/03/21 18:59 06:59 18:59 Intake Total 400 Output Total 850 225 Balance -450 -225 Intake: Intake, IV Titration 400 Amount Sodium Chloride 0.9% 1, 400 000 ml @ 50 mls/hr IV . Q20H [facility] Rx#:[id number] Output: Urine 850 225 Straight 600 Other: Voiding Method External Catheter # Bowel Movements 1 1 - Exam GENERAL EXAM: Alert, pleasant, 81-year-old white female, resting comfortably in bed, 2 L of oxygen, breathing comfortably patient does have a frequent nonproductive cough, pulse ox is currently 95% comfortable in no apparent distress. HEAD: Normocephalic/atraumatic. EYES: Normal reaction of pupils, equal size. Conjunctiva pink, sclera white. NOSE: Clear with pink turbinates. THROAT: No erythema or exudates. NECK: No masses, no JVD, no thyroid enlargement, no adenopathy. CHEST: No chest wall deformity. Symmetrical expansion. LUNGS: Equal air entry with no crackles, wheeze, rhonchi or dullness. CVS: Irregular rate and rhythm, normal S1 and S2, no gallops, no murmurs, no rubs ABDOMEN: Soft, nontender. No hepatosplenomegaly, normal bowel sounds, no guarding or rigidity. EXTREMITIES: No clubbing, no edema, no cyanosis, 2+ pulses and upper and lower extremities. MUSCULOSKELETAL: Muscle strength and tone normal. SPINE: No scoliosis or deformity SKIN: No rashes CENTRAL NERVOUS SYSTEM: Alert and oriented -3. No focal deficits, tone is normal in all 4 extremities. PSYCHIATRIC: Alert and oriented -3. Appropriate affect. Intact judgment and insight. - Labs CBC & Chem 7: 07/01/21 04:19 07/01/21 04:19 Labs: Abnormal Lab Results - Last 24 Hours (Table) 07/03/21 07/03/21 Range/Units 08:01 08:01 PT 12.3 H (9.0-12.0) sec INR 1.2 H (<1.2) Lactate Dehydrogenase 649 H (313-618) U/L C-Reactive Protein 3.0 H (<1.0) mg/dL Assessment and Plan Plan: Assessment: #1. acute COVID 19 infection without clear evidence of pneumonia at this point in time. The patient generalized weakness, fatigue, and so limited shortness of breath. Nevertheless, the chest x-ray was clear and the patient is actually taking normally and there is no evidence of any hypoxemia this point in time. The patient was placed on 2 L of oxygen by nasal cannula. Nevertheless she is able to maintain a saturation above 90% even on room air oxygen. #2. Chronic atrial fibrillation on warfarin on outpatient basis #3. Chronic bronchial asthma, moderate persistent in nature maintained on Advair and outpatient basis #4. Hypertension #5. Hyperlipidemia #6. Supratherapeutic INR, without evidence of bleeding, patient received vitamin K, will be followed Plan: Clinically patient has been stable without worsening of dyspnea Has a persistent cough No worsening in oxygenation and she did qualify for home oxygen at 2 L Today's chest x-ray has been reviewed showing no acute cardio pulmonary findings Patient can be considered for discharge home today on Decadron to finish a total of 10 day course Symbicort, and albuterol inhalers Outpatient follow-up with Dr. Felton in the office in December 2 weeks Days she has help at home and her daughter will be available to help her with her needs I performed a history & physical examination of the patient and discussed their management with my nurse practitioner, Rosalva Richardson. I reviewed the nurse practitioner's note and agree with the documented findings and plan of care. Lung sounds are positive for basilar rales throughout the lung heath. The findings and the impression was discussed with the patient. I attest to the documentation by the nurse practitioner. Time with Patient: Less than 30
--- NOTE | 2021-07-03 14:45 | P.DS ---
Providers Date of admission: 06/30/21 15:19 Expected date of discharge: 07/03/21 Attending physician: Vira Daniels Consults: 06/30/21 15:25 Consult Physician Urgent Consulting Provider: Viviane Felton Consult Reason/Comments: covid infection Do you want consulting provider notified?: Yes Primary care physician: Noel Leesalreggie [facility] Course: HISTORY OF PRESENT ILLNESS This is a 81-year-old female patient of Dr. Noel Angulo with past medical history of atrial fibrillation on chronic Coumadin, mild intermittent asthma, hypertension, hyperlipidemia, hypothyroidism. Patient states she has had symptoms for the past 10 days and went to [facility] on 06/25 for covert testing which came back positive. She denies being on any medications for this. Patient had a fall at home on Wednesday but did not pass out. She has decreased appetite and was not getting out of bed, daughter was concerned and called EMS. Patient does have some shortness of breath. No nausea, vomiting or diarrhea. No chest pain. Patient was brought into the [facility] emergency center. EKG was atrial fibrillation. She was found to be afebrile, heart rate 100, blood pressure 138/80, pulse ox 95% on room air. CBC was unremarkable except for platelet count of 115. INR 2.7. Sodium 132, BUN 20 creatinine 0.74. Magnesium 1.2 valproic acid 41.8. Lawrence virus PCR detected. Liver function tests were normal. INR 2.7. Chest x-ray reveals no acute pulmonary process. Patient started on azithromycin for bronchitis, albuterol, Symbicort, dexamethasone and continued on Coumadin, pulmonary consult. Patient is seen today in the emergency center waiting for a bed [facility] floor. 07/02: 10 has been seen by pulmonary medicine with no clear evidence of pneumonia at this time. Patient has been afebrile, heart rate 74, blood pressure 08/05/1968, pulse ox 94% on 2 L nasal cannula. INR today is 5.7 and patient ordered for vitamin K 5 mg once. D-dimer 0.32. LDH 285, C-reactive protein 4.1. Patient is continued on Ventolin inhaler, azithromycin, Symbicort dexamethasone. 07/03: Repeat INR is 1.2. Patient will be resumed on Coumadin at home dose. She is currently on O2 at 2 L nasal cannula and pulse ox dropped down to 86% with exercise. Home oxygen therapy will be arranged. Heart rate in the 70s, afebrile, blood pressure 101/67. She did require one straight cath for 750 MLS yesterday. She has been able to void. Urinalysis will be obtained. Repeat chest x-ray reveals chronic changes without evidence of acute pulmonary disease. Patient will be discharged home today in stable condition. She has been cleared for discharge by pulmonary medicine. DISCHARGE DIAGNOSES 1. COVID-19 infection. 2. Thrombocytopenia secondary to infection. 3. Fall without loss of consciousness. 4. Hypomagnesemia. 5. Hypertension. 6. Mild intermittent asthma, stable. 7. Hyperlipidemia. 8. Chronic atrial fibrillation with RVR. 9. Hypercoagulopathy secondary to Covid 19 and Coumadin. 10. Acute on chronic hypoxic respiratory failure requiring home oxygen therapy. DISCHARGE PLAN Return home with [facility] Impression and plan of care have been directed as dictated by the signing physician. Dianna Souza nurse practitioner acting as scribe for signing physician. Patient Condition at Discharge: Stable Plan - Discharge Summary New Discharge Prescriptions: New Dexamethasone [Decadron] 6 mg PO DAILY #5 tablet Albuterol Inhaler [Ventolin Hfa Inhaler] 2 puff INHALATION RT-QID #8 gm Continue Lisinopril-Hctz 20-25 mg [Zestoretic 20-25] 1 tab PO DAILY Metoprolol Tartrate 25 mg PO BID Warfarin [Coumadin] 1 mg PO W/SUPPER Levothyroxine Sodium [Synthroid] 75 mcg PO DAILY Divalproex [Depakote] 250 mg PO BID Zolpidem Tartrate [Ambien] 10 mg PO HS Fluticasone/Salmeterol [Advair 100-50 Diskus] 2 puff INHALATION RT-BID Discharge Medication List Divalproex [Depakote] 250 mg PO BID 12/22/17 [History] Levothyroxine Sodium [Synthroid] 75 mcg PO DAILY 12/22/17 [History] Lisinopril-Hctz 20-25 mg [Zestoretic 20-25] 1 tab PO DAILY 12/22/17 [History] Metoprolol Tartrate 25 mg PO BID 12/22/17 [History] Warfarin [Coumadin] 1 mg PO W/SUPPER 12/22/17 [History] Zolpidem Tartrate [Ambien] 10 mg PO HS 12/22/17 [History] Fluticasone/Salmeterol [Advair 100-50 Diskus] 2 puff INHALATION RT-BID 06/03/21 [History] Albuterol Inhaler [Ventolin Hfa Inhaler] 2 puff INHALATION RT-QID #8 gm 07/03/21 [Rx] Dexamethasone [Decadron] 6 mg PO DAILY #5 tablet 07/03/21 [Rx] Follow up Appointment(s)/Referral(s): [facility], [NON-STAFF] - As Needed Noel Angulo MD [Primary Care Provider] - 07/07/21 11:15 am (phone visit office will call you ) Viviane Felton MD [STAFF PHYSICIAN] - 07/30/21 2:30 pm (With Cecelia ) Patient Instructions/Handouts: Coronavirus Disease 2019 (COVID-19) Discharge Disposition: HOME WITH HOME HEALTH SERVICES
[2021-07-03 16:10] LABS: Appearance,Urine Clear (Clear); Bilirubin,Urine Negative (Negative); Blood,Urine Negative (Negative); Color,Urine Yellow; Glucose,Urine (UA) Negative (Negative); Ketones,Urine Negative (Negative); Leukocyte Esterase,Urine Negative (Negative); Nitrite,Urine Negative (Negative); Protein,Urine Negative (Negative); Specific Gravity,Urine 1.021 (1.001-1.035)
[2021-07-03] MEDS ORDERED: WARFARIN 1 MG TAB PO ONE (18:00)
[2021-07-03] MEDS: ZOLPIDEM 10 MG TAB PO SCH (21:07)
[2021-07-04] MEDS: DEXAMETHASONE SOD PHOSPHATE 10 MG/ML 1 ML VIAL IVP SCH (07:26)
[2021-07-04] MEDS: LISINOPRIL-HCTZ 20-25 MG 1 EACH TAB PO SCH (07:27)
[2021-07-04] MEDS: METOPROLOL TARTRATE 25 MG TAB PO SCH (07:27)
[2021-07-04] MEDS: DIVALPROEX 250 MG TABLET.DR PO SCH (07:27)
[2021-07-04] MEDS: LEVOTHYROXINE 75 MCG TAB PO SCH (07:27)
[2021-07-04] MEDS: SYMBICORT 80-4.5 MCG INHALER INHALATION SCH (08:44)
[2021-07-04] MEDS: ALBUTEROL HFA INHALER INHALATION SCH (08:44)
[2021-07-04 09:54] LABS: INR 1.1 (<1.2); Prothrombin Time 11.8 sec (9.0-12.0)
[2021-07-04 09:55] LABS: Basophils # (A) 0.1 k/uL (0-0.2); Basophils % (A) 1 %; Eosinophils % (A) 0 %; HCT 41.6 % (34.0-46.0); HGB 13.9 gm/dL (11.4-16.0); Lymphocytes % (A) 11 %; MCH 30.4 pg (25.0-35.0); MCHC 33.3 g/dL (31.0-37.0); MCV 91.2 fL (80.0-100.0); Mean Platelet Volume 8.1; Monocytes % (A) 10 %; Neutrophils # (A) 6.8 k/uL (1.3-7.7); Neutrophils % (A) 75 %; RBC 4.56 m/uL (3.80-5.40); RDW 13.3 % (11.5-15.5); WBC 9.1 k/uL (3.8-10.6)
[2021-07-04 09:59] LABS: Platelet Count 259 k/uL (150-450)
[2021-07-04 10:03] LABS: ALT 14 U/L (4-34); AST 23 U/L (14-36); African American GFR (CKD) 79 (>60 ml/min/1.73 sqM); Albumin 3.1 g/dL (3.5-5.0); Alkaline Phosphatase 52 U/L (38-126); Anion Gap 7 mmol/L; Blood Urea Nitrogen 24 mg/dL (7-17); Calcium 9.3 mg/dL (8.4-10.2); Carbon Dioxide 31 mmol/L (22-30); Chloride 99 mmol/L (98-107); Glucose 105 mg/dL (74-99); Non-African American GFR(CKD) 69 (>60 ml/min/1.73 sqM); Potassium 4.9 mmol/L (3.5-5.1); Sodium 137 mmol/L (137-145); Total Bilirubin 0.5 mg/dL (0.2-1.3); Total Protein 6.1 g/dL (6.3-8.2)
[2021-07-04 10:08] VITALS: BP 144/74; PULSE 72; RESP 17; TEMP 97.4
--- NOTE | 2021-07-04 13:20 | P.PN ---
Subjective Progress Note Date: 07/04/21 81-year-old female patient, currently hospitalized for COVID 19 related pneumon ia. 07/04/2021, I'm seeing this patient for a follow-up. The patient is currently on 2 L about 2 by nasal cannula. She is quite comfortable pitches awake and alert. Her fatigue and tiredness and lethargy has improved. She has an underlying COVID 19 related infection as mentioned earlier the patient got transferred to us from an outside hospital. She was feeling quite weak and lethargic and she was falling prior to her coming to us and her appetite was poor. She has improved and the patient is currently on Decadron 6 mg by mouth daily. She is back on anticoagulation. Note that she was subtherapeutic on her PT/INR and she was reversed and currently she is back on warfarin. She remains on oxygen 2 L per minute is a cannula. She is also on Symbicort as maintenance and albuterol HFA on an as-needed basis. Her comorbid conditions include asthma, hypertension and hyperlipidemia. Patient is ready for discharge from the pulmonary standpoint. Note that the patient is not vaccinated. Objective - Vital Signs Vital signs: Vital Signs Temp 97.4 F L 07/04/21 09:14 Pulse 72 07/04/21 09:14 Resp 17 07/04/21 09:14 BP 144/74 07/04/21 09:14 Pulse Ox 91 L 07/04/21 09:14 Intake & Output 07/03/21 07/04/21 07/04/21 18:59 06:59 18:59 Intake Total 218 220 Output Total 200 300 Balance 18 220 -300 Intake: Oral 218 220 Output: Urine 200 300 Other: Voiding Method External Catheter External Catheter # Voids 2 # Bowel Movements 1 1 - Exam Gen. appearance the patient is calm and comfortable likely distress and the patient's breathing is nonlabored on 2 L about 2 by nasal cannula The patient appeared well nourished and normally developed. Vital signs as documented. Head exam is unremarkable. No scleral icterus or corneal arcus noted. Neck is without jugular venous distension, thyromegaly, or carotid bruits. Carotid upstrokes are brisk bilaterally. Lungs are clear to auscultation and percussion. Cardiac exam reveals the PMI to be normally sized and situated. Rhythm is regular. First and second heart sounds normal. No murmurs, rubs or gallops. Abdominal exam reveals normal bowel sounds, no masses, no organomegaly and no aortic enlargement. Extremities are nonedematous and both femoral and pedal pulses are normal. - Labs CBC & Chem 7: 07/04/21 07:49 07/04/21 07:49 Labs: Abnormal Lab Results - Last 24 Hours (Table) 07/04/21 Range/Units 07:49 Carbon Dioxide 31 H (22-30) mmol/L BUN 24 H (7-17) mg/dL Glucose 105 H (74-99) mg/dL Total Protein 6.1 L (6.3-8.2) g/dL Albumin 3.1 L (3.5-5.0) g/dL Assessment and Plan Plan: 1 acute COVID 19 infection without clear evidence of pneumonia at this point in time. The patient generalized weakness, fatigue, and so limited shortness of breath. Nevertheless, the chest x-ray was clear and the patient is actually taking normally and there is no evidence of any hypoxemia this point in time. The patient was placed on 2 L of oxygen by nasal cannula. 2 chronic atrial fibrillation on warfarin on outpatient basis, PT/INR is therapeutic at this point in time 3 chronic bronchial asthma, moderate persistent in nature maintained on Advair and outpatient basis 4 hypertension 5 hyperlipidemia Plan Clinically stable Patient may discharge home today on 2 L of oxygen nasal cannula Continue Symbicort Continue articulation with warfarin regarding her chronic atrial fibrillation Discharge home today to be followed up on outpatient basis
--- NOTE | 2021-07-04 13:46 | P.PN ---
Subjective Progress Note Date: 07/03/21 HISTORY OF PRESENT ILLNESS This is a 81-year-old female patient of Dr. Noel Angulo with past medical history of atrial fibrillation on chronic Coumadin, mild intermittent asthma, hypertension, hyperlipidemia, hypothyroidism. Patient states she has had symptoms for the past 10 days and went to [facility] on 06/25 for covert testing which came back positive. She denies being on any medications for this. Patient had a fall at home on Wednesday but did not pass out. She has decreased appetite and was not getting out of bed, daughter was concerned and called EMS. Patient does have some shortness of breath. No nausea, vomiting or diarrhea. No chest pain. Patient was brought into the [facility] emergency center. EKG was atrial fibrillation. She was found to be afebrile, heart rate 100, blood pressure 138/80, pulse ox 95% on room air. CBC was unremarkable except for platelet count of 115. INR 2.7. Sodium 132, BUN 20 creatinine 0.74. Magnesium 1.2 valproic acid 41.8. Lawrence virus PCR detected. Liver function tests were normal. INR 2.7. Chest x-ray reveals no acute pulmonary process. Patient started on azithromycin for bronchitis, albuterol, Symbicort, dexamethasone and continued on Coumadin, pulmonary consult. Patient is seen today in the emergency center waiting for a bed on the [facility] floor. 07/02: 10 has been seen by pulmonary medicine with no clear evidence of pneumonia at this time. Patient has been afebrile, heart rate 74, blood pressure 08/05/1968, pulse ox 94% on 2 L nasal cannula. INR today is 5.7 and patient ordered for vitamin K 5 mg once. D-dimer 0.32. LDH 285, C-reactive protein 4.1. Patient is continued on Ventolin inhaler, azithromycin, Symbicort dexamethasone. 07/03: Repeat INR is 1.2. Patient will be resumed on Coumadin at home dose. She is currently on O2 at 2 L nasal cannula and pulse ox dropped down to 86% with exercise. Home oxygen therapy will be arranged. Heart rate in the 70s, afebrile, blood pressure 101/67. She did require one straight cath for 750 MLS yesterday. She has been able to void. Urinalysis will be obtained. Repeat chest x-ray reveals chronic changes without evidence of acute pulmonary disease. REVIEW OF SYSTEMS Constitutional: No fever, no chills, no night sweats. No weight change. Reported weakness, Reported fatigue Reported lethargy. No daytime sleepiness. EENT: No headache. No blurred vision or double vision, no loss of vision. No dizziness. No nasal drainage or congestion. No epistaxis. No sore throat. Lungs: Reports shortness of breath, reports cough, no sputum production. No wheezing. Cardiovascular: No chest pain, no lower extremity edema. No palpitations. No paroxysmal nocturnal dyspnea. No orthopnea. No lightheadedness or dizziness. No syncopal episodes. Abdominal: No abdominal pain. No nausea, vomiting. No diarrhea. No constipation. No bloody or tarry stools. No loss of appetite. Genitourinary: No dysuria, increased frequency, urgency. No urinary retention. Musculoskeletal: No myalgias. Reported muscle weakness, no gait dysfunction, no frequent falls. No back pain. No neck pain. Integumentary: No wounds, no lesions. No rash or pruritus. No unusual bruising. No change in hair or nails. Neurologic: No aphasia. No facial droop. No change in mentation. No head injury. No headache. No paralysis. No paresthesia. Psychiatric: No depression. No anxiety. No mood swings. Endocrine: No abnormal blood sugars. No weight change. PHYSICAL EXAMINATION Gen: This is an 81-year-old female. She is resting on the ER stretcher and appears to be comfortable. HEENT: Head is atraumatic, normocephalic. Pupils equal, round. Sclerae is anicteric. NECK: Supple. No JVD. No lymphadenopathy. No thyromegaly. LUNGS: Diminished bilaterally, bilateral crackles. No intercostal retractions. HEART: Regular rate and rhythm. No murmur. ABDOMEN: Soft. Bowel sounds are present. No masses. No tenderness. EXTREMITIES: No pedal edema. No calf tenderness. NEUROLOGICAL: Patient is awake, alert and oriented x3. Cranial nerves 2 through 12 are grossly intact. ASSESSMENT AND PLAN 1. COVID-19 infection. Patient started on albuterol inhaler 4 times daily, azithromycin, Symbicort twice daily, Decadron 6 mg IV push daily, pulmonary consult appreciated. 2. Thrombocytopenia secondary to infection. 3. Fall without loss of consciousness. Consult with PT and OT. 4. Hypomagnesemia. Status post replacement. 5. Hypertension. Zestoretic 2024 one daily with parameters, continue Lopressor 25 mg twice daily. 6. Mild intermittent asthma, stable. Continue Symbicort 2 puffs twice daily. 7. Hyperlipidemia. 8. Chronic atrial fibrillation with RVR. Continue Lopressor 25 mg twice daily and Coumadin, pharmacy dosing. 9. Hypercoagulopathy secondary to Covid 19 and Coumadin. Vitamin K 5 mg oral 1 dose. Pharmacy is dosing Coumadin. 10. GI prophylaxis. Protonix. 11. DVT prophylaxis. Continue Coumadin, pharmacy dosing DISCHARGE PLAN Return home Impression and plan of care have been directed as dictated by the signing physician. Dianna Souza nurse practitioner acting as scribe for signing physician. Objective - Vital Signs Vital signs: Vital Signs Temp 97.6 F 07/03/21 08:00 Pulse 78 07/03/21 08:00 Resp 20 07/03/21 08:00 BP 101/67 07/03/21 08:00 Pulse Ox 92 L 07/03/21 08:00 Intake & Output 07/02/21 07/03/21 07/03/21 18:59 06:59 18:59 Intake Total 400 Output Total 850 225 Balance -450 -225 Intake: Intake, IV Titration 400 Amount Sodium Chloride 0.9% 1, 400 000 ml @ 50 mls/hr IV . Q20H [facility] Rx#:[id number] Output: Urine 850 225 Straight 600 Other: Voiding Method External Catheter # Bowel Movements 1 1 - Labs CBC & Chem 7: 07/04/21 07:49 07/04/21 07:49 Labs: Abnormal Lab Results - Last 24 Hours (Table) 07/02/21 07/03/21 07/03/21 Range/Units 06:33 08:01 08:01 PT 12.3 H (9.0-12.0) sec INR 1.2 H (<1.2) Lactate Dehydrogenase 285 H 649 H (120-246) U/L C-Reactive Protein 4.10 H 3.0 H (0.00-0.80) mg/dL
[2021-07-04] MEDS ORDERED: WARFARIN 2 MG TAB PO ONE (18:00)
== END 2021-07-04 12:55 | disposition home health service (06) | DRG 177 ==
LOC: EC 12:40 → 4SSUR 15:19
PROVIDERS: ADMIT Family Medicine; ATTEND Family Medicine
DX: U07.1 COVID-19 (principal); J96.21 Acute and chronic respiratory failure with hypoxia; I48.20 Chronic atrial fibrillation, unspecified; I10 Essential (primary) hypertension; D69.59 Other secondary thrombocytopenia; J40 Bronchitis, not specified as acute or chronic; E03.9 Hypothyroidism, unspecified; E78.5 Hyperlipidemia, unspecified; E83.42 Hypomagnesemia; J45.40 Moderate persistent asthma, uncomplicated; R79.1 Abnormal coagulation profile; W19.XXXA Unspecified fall, initial encounter; Y92.009 Unspecified place in unspecified non-institutional (private) residence as the place of occurrence of the external cause; Z79.01 Long term (current) use of anticoagulants; Z79.51 Long term (current) use of inhaled steroids; Z79.890 Hormone replacement therapy; Z79.899 Other long term (current) drug therapy; Z82.5 Family history of asthma and other chronic lower respiratory diseases
CPT/HCPCS: 36415; 71045; 80048; 80053; 80164; 81003; 83605; 83615; 83735; 84145; 85025; 85379; 85610; 85730; 86140; 87635; 93005; 94640; 99285

== ENCOUNTER 2023-08-24 13:18 | Inpatient (IN) | payer MEDICARE, BC ==
--- NOTE | 2023-08-24 13:54 | ED ---
General Adult HPI - General Chief complaint: Chest Pain Stated complaint: Chest Pain Time Seen by Provider: 08/24/23 13:20 Source: patient, RN notes reviewed, old records reviewed Mode of arrival: EMS - History of Present Illness Initial comments: 83 female presenting with substernal chest pain which began today. No associated dyspnea. No vomiting. No radiating symptoms. Patient had been transported by paramedics in atrial fibrillation which was rate controlled. She has history of atrial fibrillation and is on Coumadin. Pain is improved at the time my evaluation. Additionally the patient complains of some intermittent left lower quadrant pain which has been present for many months. No fevers. - Related Data Home Medications Medication Instructions Recorded Confirmed Divalproex [Depakote] 250 mg PO BID 12/22/17 08/24/23 Levothyroxine Sodium [Synthroid] 75 mcg PO DAILY 12/22/17 08/24/23 Metoprolol Tartrate 25 mg PO BID 12/22/17 08/24/23 Warfarin [Coumadin] 1 mg PO MOTUWETHFRSA@0900 12/22/17 08/24/23 Zolpidem Tartrate [Ambien] 10 mg PO HS 12/22/17 08/24/23 Calcium/Magnesium/Zinc 400mg 1 tab PO BID 08/24/23 08/24/23 Probiotic/Prebiotic Gummy 2 tab PO BID 08/24/23 08/24/23 Vancomycin HCl [Vancocin HCl] 250 mg PO QID 08/24/23 08/24/23 Allergies Allergy/AdvReac Type Severity Reaction Status Date / Time No Known Allergies Allergy Verified 08/24/23 15:53 Review of Systems ROS Statement: Those systems with pertinent positive or pertinent negative responses have been documented in the HPI. ROS Other: All systems not noted in ROS Statement are negative. Past Medical History Past Medical History: Atrial Fibrillation, Asthma, Hyperlipidemia, Hypertension History of Any Multi-Drug Resistant Organisms: None Reported Past Surgical History: Appendectomy Additional Past Surgical History / Comment(s): laser for gallstone Past Anesthesia/Blood Transfusion Reactions: No Reported Reaction Additional Past Anesthesia/Blood Transfusion Reaction / Comment(s): Last blood transfusion 08/1969. No reaction. Past Psychological History: No Psychological Hx Reported Smoking Status: Never smoker Past Alcohol Use History: Occasional Past Drug Use History: None Reported - Past Family History Mother Family Medical History: CVA/TIA Father Family Medical History: Cancer General Exam General appearance: alert, in no apparent distress Head exam: Present: atraumatic, normocephalic Eye exam: Present: normal appearance, PERRL ENT exam: Present: normal exam Respiratory exam: Present: normal lung sounds bilaterally. Absent: respiratory distress, wheezes Cardiovascular Exam: Present: regular rate, irregular rhythm GI/Abdominal exam: Present: soft, tenderness (Very mild left lower quadrant tenderness). Absent: distended Extremities exam: Present: normal inspection, normal capillary refill. Absent: pedal edema, calf tenderness Neurological exam: Present: alert, oriented X3, CN II-XII intact Psychiatric exam: Present: normal affect, normal mood Course Vital Signs 08/24/23 08/24/23 08/24/23 13:23 13:27 14:10 Temperature 97 F L Pulse Rate 100 79 Pulse Rate [ 68 Referral Rn ] Respiratory 20 20 Rate Blood Pressure 158/99 153/89 O2 Sat by Pulse 93 L 98 Oximetry 08/24/23 08/24/23 08/24/23 14:12 14:27 15:00 Temperature Pulse Rate 70 74 Pulse Rate [ Referral Rn ] Respiratory 20 16 20 Rate Blood Pressure 159/74 159/88 O2 Sat by Pulse 94 L 95 Oximetry 08/24/23 16:00 Temperature Pulse Rate 68 Pulse Rate [ Referral Rn ] Respiratory 16 Rate Blood Pressure 150/86 O2 Sat by Pulse 93 L Oximetry Medical Decision Making - Medical Decision Making Was pt. sent in by a medical professional or institution (, PA, JUNIOR TECHNICAL WRITER, urgent care, hospital, or residential...) When possible be specific @ -No Did you speak to anyone other than the patient for history (EMS, parent, family, police, friend...)? What history was obtained from this source @ -No Did you review nursing and triage notes (agree or disagree)? Why? @ -I reviewed and agree with nursing and triage notes Were old charts reviewed (outside hosp., previous admission, EMS record, old EKG, old radiological studies, urgent care reports/EKG's, residential records)? Report findings @ -No old charts were reviewed Differential Diagnosis (chest pain, altered mental status, abdominal pain women, abdominal pain men, vaginal bleeding, weakness, fever, dyspnea, syncope, headache, dizziness, GI bleed, back pain, seizure, CVA, palpatations, mental health, musculoskeletal)? @ -Not applicable EKG interpreted by me (3pts min.). @ -[Atrial fibrillation rate of 83, QRS duration 84, QTc 390, no ST segment elevation, subtle ST segment depression in the lateral precordial leads. X-rays interpreted by me (1pt min.). @ -Chest x-ray negative for pneumothorax, no focal pneumonia CT interpreted by me (1pt min.). @CT abdomen pelvis negative for acute intra-abdominal pathology. U/S interpreted by me (1pt. min.). @ -None done What testing was considered but not performed or refused? (CT, X-rays, U/S, labs)? Why? @ -None What meds were considered but not given or refused? Why? @ -None Did you discuss the management of the patient with other professionals (professionals i.e. , PA, JUNIOR TECHNICAL WRITER, lab, RT, psych nurse, social services assistant, english division chair, teacher, protection officer, casework manager)? Give summary @Dr. Christine Was smoking cessation discussed for >3mins.? @ -No Was critical care preformed (if so, how long)? @ -No Were there social determinants of health that impacted care today? How? (Homelessness, low income, unemployed, alcoholism, drug addiction, transportation, low edu. Level, literacy, decrease access to med. care, retirement, rehab)? @ -No Was there de-escalation of care discussed even if they declined (Discuss DNR or withdrawal of care, Hospice)? DNR status @ -No What co-morbidities impacted this encounter? (DM, HTN, Smoking, COPD, CAD, Cancer, CVA, ARF, Chemo, Hep., AIDS, mental health diagnosis, sleep apnea, morbid obesity)? @History of A-fib Was patient admitted / discharged? Hospital course, mention meds given and route, prescriptions, significant lab abnormalities, going to OR and other pertinent info. @Patient admitted for serial cardiac enzymes, magnesium replacement and cardiology consultation. EKG is atrial fibrillation which is rate controlled and without definitive signs of ischemia. Initial troponin is negative. Patient will be placed in observation for serial cardiac enzymes, telemetry, cardiology consultation. Magnesium is replaced. Undiagnosed new problem with uncertain prognosis? @ -No Drug Therapy requiring intensive monitoring for toxicity (Heparin, Nitro, Insulin, Cardizem)? @ -No Were any procedures done? @ -No Diagnosis/symptom? @ -[Chest pain rule out, hypomagnesemia, elevated INR Acute, or Chronic, or Acute on Chronic? @ -Acute Uncomplicated (without systemic symptoms) or Complicated (systemic symptoms)? @ -Default Side effects of treatment? @ -No Exacerbation, Progression, or Severe Exacerbation? @ -No Poses a threat to life or bodily function? How? (Chest pain, [place], [place], pneumonia, PE, COPD, DKA, ARF, appy, cholecystitis, CVA, Diverticulitis, Homicidal, Suicidal, threat to staff... and all critical care pts) @ -[Yes, chest pain - Lab Data Result diagrams: 08/24/23 13:41 08/24/23 13:41 Lab Results 08/24/23 08/24/23 08/24/23 Range/Units 13:41 13:41 13:41 WBC 7.5 (3.8-10.6) k/uL RBC 4.26 (3.80-5.40) m/uL Hgb 13.4 (11.4-16.0) gm/dL Hct 41.1 (34.0-46.0) % MCV 96.3 (80.0-100.0) fL MCH 31.5 (25.0-35.0) pg MCHC 32.7 (31.0-37.0) g/dL RDW 14.7 (11.5-15.5) % Plt Count 166 (150-450) k/uL MPV 7.7 Neutrophils % 68 % Lymphocytes % 20 % Monocytes % 9 % Eosinophils % 1 % Basophils % 0 % Neutrophils # 5.1 (1.3-7.7) k/uL Lymphocytes # 1.5 (1.0-4.8) k/uL Monocytes # 0.7 (0-1.0) k/uL Eosinophils # 0.1 (0-0.7) k/uL Basophils # 0.0 (0-0.2) k/uL PT 51.7 H (10.0-12.5) sec INR 5.3 H* (<1.2) APTT 50.1 H (22.0-30.0) sec Sodium 139 (137-145) mmol/L Potassium 3.7 (3.5-5.1) mmol/L Chloride 104 (98-107) mmol/L Carbon Dioxide 29 (22-30) mmol/L Anion Gap 6 mmol/L BUN 9 (7-17) mg/dL Creatinine 0.50 L (0.52-1.04) mg/dL Est GFR (CKD-EPI)AfAm >90 (>60 ml/min/1.73 sqM) Est GFR (CKD-EPI)NonAf 90 (>60 ml/min/1.73 sqM) Glucose 88 (74-99) mg/dL Calcium 9.5 (8.4-10.2) mg/dL Magnesium 1.0 L (1.6-2.3) mg/dL Total Bilirubin 0.7 (0.2-1.3) mg/dL AST 31 (14-36) U/L ALT 17 (4-34) U/L Alkaline Phosphatase 103 (38-126) U/L Troponin I (0.000-0.034) ng/mL NT-Pro-B Natriuret Pep 3100 pg/mL Total Protein 6.0 L (6.3-8.2) g/dL Albumin 3.3 L (3.5-5.0) g/dL Lipase 50 (23-300) U/L 08/24/23 Range/Units 13:41 WBC (3.8-10.6) k/uL RBC (3.80-5.40) m/uL Hgb (11.4-16.0) gm/dL Hct (34.0-46.0) % MCV (80.0-100.0) fL MCH (25.0-35.0) pg MCHC (31.0-37.0) g/dL RDW (11.5-15.5) % Plt Count (150-450) k/uL MPV Neutrophils % % Lymphocytes % % Monocytes % % Eosinophils % % Basophils % % Neutrophils # (1.3-7.7) k/uL Lymphocytes # (1.0-4.8) k/uL Monocytes # (0-1.0) k/uL Eosinophils # (0-0.7) k/uL Basophils # (0-0.2) k/uL PT (10.0-12.5) sec INR (<1.2) APTT (22.0-30.0) sec Sodium (137-145) mmol/L Potassium (3.5-5.1) mmol/L Chloride (98-107) mmol/L Carbon Dioxide (22-30) mmol/L Anion Gap mmol/L BUN (7-17) mg/dL Creatinine (0.52-1.04) mg/dL Est GFR (CKD-EPI)AfAm (>60 ml/min/1.73 sqM) Est GFR (CKD-EPI)NonAf (>60 ml/min/1.73 sqM) Glucose (74-99) mg/dL Calcium (8.4-10.2) mg/dL Magnesium (1.6-2.3) mg/dL Total Bilirubin (0.2-1.3) mg/dL AST (14-36) U/L ALT (4-34) U/L Alkaline Phosphatase (38-126) U/L Troponin I <0.012 (0.000-0.034) ng/mL NT-Pro-B Natriuret Pep pg/mL Total Protein (6.3-8.2) g/dL Albumin (3.5-5.0) g/dL Lipase (23-300) U/L Disposition Clinical Impression: Hypomagnesemia, Chest pain Disposition: ADMITTED IP TO THIS HOSP Condition: Stable Is patient prescribed a controlled substance at d/c from ED?: No Referrals: Noel Angulo MD [Primary Care Provider] - 1-2 days Time of Disposition: 16:49
[2023-08-24 14:00] LABS: Basophils % (A) 0 %; Eosinophils # (A) 0.1 k/uL (0-0.7); Eosinophils % (A) 1 %; HCT 41.1 % (34.0-46.0); HGB 13.4 gm/dL (11.4-16.0); Lymphocytes # (A) 1.5 k/uL (1.0-4.8); Lymphocytes % (A) 20 %; MCH 31.5 pg (25.0-35.0); MCHC 32.7 g/dL (31.0-37.0); MCV 96.3 fL (80.0-100.0); Mean Platelet Volume 7.7; Monocytes # (A) 0.7 k/uL (0-1.0); Monocytes % (A) 9 %; Neutrophils # (A) 5.1 k/uL (1.3-7.7); Neutrophils % (A) 68 %; Platelet Count 166 k/uL (150-450); RBC 4.26 m/uL (3.80-5.40); RDW 14.7 % (11.5-15.5); WBC 7.5 k/uL (3.8-10.6)
--- NOTE | 2023-08-24 14:08 | XR ---
EXAMINATION TYPE: XR chest 2V DATE OF EXAM: 08/24/2023 COMPARISON: 07/03/2021 HISTORY: 83-year-old female with chest pain TECHNIQUE: AP and lateral views FINDINGS: Heart is borderline in size. Hyperinflation. Possible subtle focal density left midlung. Otherwise, n o consolidation or pleural effusion. IMPRESSION: 1. Borderline cardiomegaly and COPD. No definite acute process. 2. Unable to exclude a subtle pulmonary nodule in the left midlung. Outpatient CT follow-up to exclud e an underlying pulmonary nodule.
[2023-08-24 14:24] LABS: ALT 17 U/L (4-34); AST 31 U/L (14-36); African American GFR (CKD) >90 (>60 ml/min/1.73 sqM); Albumin 3.3 g/dL (3.5-5.0); Alkaline Phosphatase 103 U/L (38-126); Anion Gap 6 mmol/L; Blood Urea Nitrogen 9 mg/dL (7-17); Calcium 9.5 mg/dL (8.4-10.2); Carbon Dioxide 29 mmol/L (22-30); Chloride 104 mmol/L (98-107); Glucose 88 mg/dL (74-99); Lipase 50 U/L (23-300); Non-African American GFR(CKD) 90 (>60 ml/min/1.73 sqM); Potassium 3.7 mmol/L (3.5-5.1); Sodium 139 mmol/L (137-145); Total Bilirubin 0.7 mg/dL (0.2-1.3)
[2023-08-24 14:25] LABS: Partial Thromboplastin Time 50.1 sec (22.0-30.0); Prothrombin Time 51.7 sec (10.0-12.5)
[2023-08-24 14:32] LABS: NT-Pro-B-Type Natriuretic Pept 3100 pg/mL
[2023-08-24 14:43] LABS: INR 5.3 (<1.2)
[2023-08-24] MEDS: MAGNESIUM SULFATE-D5W PMX 1 GM in DEXTROSE/WATER 1 100ML.BAG IVPB SCH ×4 (14:57→22:08)
--- NOTE | 2023-08-24 16:34 | CT ---
EXAMINATION TYPE: CT abdomen pelvis w con DATE OF EXAM: 08/24/2023 COMPARISON: None INDICATION: LLQ PAIN DLP: 697 mGycm, Automated exposure control for dose reduction was used. CONTRAST: 100 mL of Isovue 370. Study performed with Oral Contrast TECHNIQUE: Axial images were obtained from above the diaphragm to the pubic rami in the axial plane a t 5 mm thick sections. Reconstructed images are reviewed on the computer in the coronal plane. FINDINGS: Limited CT sections are obtained the lung bases. There is a small right pleural effusion.. CT ABDOMEN: Liver: There is diminished density through the liver can be related to moderate fatty infiltration of liver. Spleen: Splenic cyst may be present. Pancreas: Normal Adrenal glands: The adrenal glands are normal. Gallbladder: Surgically absent. Kidneys: No masses are evident. No hydronephrosis is present. Several small cortical renal cysts ar e present. Delayed images were obtained through the kidneys, no additional suspicious findings. Aorta: Vascular calcification is within the aorta. Inferior vena cava: Normal. CT PELVIS: Loops of bowel within the abdomen and pelvis are normal. The study is performed without oral cont rast limiting bowel evaluation. A couple diverticuli are scattered through the sigmoid colon. No james cent inflammatory changes to suggest acute diverticulitis. Appendix: Not clearly identified. No dilated tubular structure or inflammatory changes. Urinary bladder: Normal. Genitourinary structures: The uterus contains calcification can be related to a fibroid. Uterus is so mewhat bulky. Adnexa appear normal. Osseous structures: No suspicious lytic or sclerotic lesions. Facet degenerative changes are present within the lower lumbar spine. Costochondral cartilage calcification is noted. IMPRESSION: 1. Diverticulosis without acute diverticulitis. Follow-up can be performed as clinically indicated. 2. Moderate fatty infiltration of the liver. 3. Bilateral renal cysts. 4. Small right pleural effusion
[2023-08-24] MEDS ORDERED: NALOXONE 0.4 MG/ML 1 ML VIAL IV PRN (16:46)
[2023-08-24] MEDS ORDERED: ACETAMINOPHEN TAB 325 MG TAB PO PRN (16:46)
[2023-08-24] MEDS ORDERED: ONDANSETRON 4 MG/2 ML VIAL IVP PRN (19:03)
[2023-08-24] MEDS: HEPARIN SODIUM,PORCINE 5,000 UNIT/ML 1 ML VIAL SQ SCH (19:55)
[2023-08-24] MEDS: ZOLPIDEM 5 MG TAB PO SCH (19:55)
[2023-08-24] MEDS: METOPROLOL TARTRATE 25 MG TAB PO SCH (19:55)
[2023-08-24] MEDS: PANTOPRAZOLE 40 MG TABLET PO SCH (19:58)
[2023-08-24] MEDS ORDERED: VANCOMYCIN HCL 250 MG PO SCH (22:00)
[2023-08-24] MEDS: DIVALPROEX 250 MG TABLET.DR PO SCH (22:09)
--- NOTE | 2023-08-25 00:44 | P.HPIM ---
History of Present Illness H&P Date: 08/24/23 Chief Complaint: Chest pain Patient is a 83-year-old female with a past medical history of atrial fibrillation on anticoagulation with Coumadin, asthma, hypertension, hyperlip idemia presents to ER with complaints of chest pain. Pain is mainly in the mid retrosternal going up from the epigastric region. No associated nausea or vomiting. No headache or dizziness.. Patient was noted to be in atrial fibrillation with rate controlled by EMS. No fever no chills. No cough or sputum production. Denied any shortness of breath. Patient states that she has been having diverticulitis for the past 3 months and was taking antibiotics which she completed a couple days ago. She was also complaining of diarrhea with loose stools. Also complaining of left lower quadrant abdominal pain. Denied any hematemesis or melena. Patient has follow- up appointment with gastroenterology. Chest x-ray showed borderline cardiomegaly and COPD. No definite acute process. Unable to exclude subtle pulmonary nodule in the left mid lung. Outpatient CT follow-up to exclude an underlying pulmonary nodule. EKG showed atrial fibrillation with heart rate 83. CT of the abdomen pelvis showed diverticulosis without acute diverticulitis. Follow-up can be performed as clinically indicated. Moderate fatty infiltration of the liver. Bilateral renal cysts. Small right pleural effusion. Laboratory data showed WBC 7.4 hemoglobin 13.4 and platelets 166 INR 5.3 Troponin 3 negative. Magnesium 1.0 proBNP 3100 and lipase 50. Review of Systems Constitutional: Patient denies any fever or chills . Patient does have generalized weakness. No weight loss. Abdomen: No complaints of nausea vomiting. Patient does have diarrhea and left lower quadrant abdominal pain.. Cardiovascular: Patient denies any chest pain or short of breath no palpit ations. Respiratory: patient denied any cough is from production. No shortness of breath Neurologic: Patient denied any numbness or tingling headache. Musculoskeletal: Patient denies any complaints of joint swelling or deformity. Skin: Negative Psychiatric: Negative Endocrine: No heat or cold intolerance. No recent weight gain. Genitourinary: No dysuria or hematuria. All other 14 point ROS negative except the above Past Medical History Past Medical History: Atrial Fibrillation, Asthma, Hyperlipidemia, Hypertension History of Any Multi-Drug Resistant Organisms: None Reported Past Surgical History: Appendectomy Additional Past Surgical History / Comment(s): laser for gallstone Past Anesthesia/Blood Transfusion Reactions: No Reported Reaction Additional Past Anesthesia/Blood Transfusion Reaction / Comment(s): Last blood transfusion 08/1969. No reaction. Past Psychological History: No Psychological Hx Reported Smoking Status: Never smoker Past Alcohol Use History: Occasional Additional Past Alcohol Use History / Comment(s): drinks only on football days Past Drug Use History: None Reported - Past Family History Mother Family Medical History: CVA/TIA Father Family Medical History: Cancer Medications and Allergies Home Medications Medication Instructions Recorded Confirmed Type Divalproex [Depakote] 250 mg PO BID 12/22/17 08/24/23 History Levothyroxine Sodium [Synthroid] 75 mcg PO DAILY 12/22/17 08/24/23 History Metoprolol Tartrate 25 mg PO BID 12/22/17 08/24/23 History Warfarin [Coumadin] 1 mg PO MOTUWETHFRSA@0900 12/22/17 08/24/23 History Zolpidem Tartrate [Ambien] 10 mg PO HS 12/22/17 08/24/23 History Calcium/Magnesium/Zinc 400mg 1 tab PO BID 08/24/23 08/24/23 History Probiotic/Prebiotic Gummy 2 tab PO BID 08/24/23 08/24/23 History Vancomycin HCl [Vancocin HCl] 250 mg PO QID 08/24/23 08/24/23 History Allergies Allergy/AdvReac Type Severity Reaction Status Date / Time No Known Allergies Allergy Verified 08/24/23 15:53 Physical Exam Vitals: Vital Signs Temp Pulse Pulse Resp BP BP Pulse Ox 08/24/23 19:48 97.2 F L 88 16 157/90 93 L 08/24/23 17:56 92 16 174/81 92 L 08/24/23 17:37 68 16 140/86 98 08/24/23 16:00 68 16 150/86 93 L 08/24/23 15:00 74 20 159/88 95 08/24/23 14:27 70 16 159/74 94 L 08/24/23 14:12 20 08/24/23 14:10 68 08/24/23 13:27 79 20 153/89 98 08/24/23 13:23 97 F L 100 20 158/99 93 L Intake and Output 08/24/23 08/24/23 08/24/23 06:59 14:59 22:59 Other: Voiding Method Diaper Weight 71.668 kg 57 kg PHYSICAL EXAMINATION: Patient is lying in the bed comfortably, no acute distress, awake alert and oriented.. HEENT: Normocephalic. Neck is supple. Pupils reactive. Nostrils clear. Oral cavity is moist. Neck reveals no JVD, carotid bruits, or thyromegaly. CHEST EXAMINATION: Trachea is central. Symmetrical expansion. Bibasilar diminished sounds. No wheezing or rhonchi.. CARDIAC: Normal S1, S2 with no gallops. No murmurs . Irregular rhythm. ABDOMEN: Soft. Bowel sounds normal. Left lower quadrant tenderness mild. No guarding or rigidity. No organomegaly. No abdominal bruits. Extremities: reveal no edema. No clubbing or cyanosis Neurologically awake, alert, oriented x3 with well-coordinated movements. No focal deficits noted Skin: No rash or skin lesions. Psychiatric: Coperative. Nonsuicidal Musculoskeletal: No joint swelling or deformity. Normal range of motion. Results CBC & Chem 7: 08/25/23 07:34 08/25/23 07:34 Labs: Abnormal Lab Results - Last 24 Hours (Table) 08/24/23 08/24/23 Range/Units 13:41 13:41 PT 51.7 H (10.0-12.5) sec INR 5.3 H* (<1.2) APTT 50.1 H (22.0-30.0) sec Creatinine 0.50 L (0.52-1.04) mg/dL Magnesium 1.0 L (1.6-2.3) mg/dL Total Protein 6.0 L (6.3-8.2) g/dL Albumin 3.3 L (3.5-5.0) g/dL Thrombosis Risk Factor Assmnt - DVT/VTE Prophylaxis DVT/VTE Prophylaxis: Pharmacologic Prophylaxis ordered - Choose All That Apply Each Risk Factor Represents 3 Points: Age 75 years or older Thrombosis Risk Factor Assessment Total Risk Factor Score: 3 Thrombosis Risk Factor Assessment Level: Moderate Risk Assessment and Plan Assessment: Atypical chest pain. Rule out ACS. Recent acute diverticulitis. Completed antibiotic course 2 days ago. Acute diarrhea. Rule out C. diff infection due to recent antibiotic use. Severe hypomagnesemia and hypokalemia Chronic atrial fibrillation on anticoagulation with Coumadin. Rate controlled. Supratherapeutic INR level. Hypertension Hyperlipidemia Asthma Hypothyroidism GI prophylaxis with Protonix Subtle pulmonary nodule in the left midlung suspected as per chest x-ray. Recommended outpatient CT follow-up Plan: Patient will be continued on telemetry monitoring. Follow-up serial EKG and troponin 3. CT of the abdomen pelvis showed no evidence of acute diverticulitis. Follow-up C. diff toxin. Coumadin is on hold due to supratherapeutic INR level Replace magnesium Cardiology consult for further evaluation. Restarted home medications. Continue to follow closely.
[2023-08-25] MEDS: LEVOTHYROXINE 75 MCG TAB PO SCH (06:08)
[2023-08-25] MEDS: PANTOPRAZOLE 40 MG TABLET PO SCH ×2 (06:08→17:15)
[2023-08-25 08:17] LABS: Basophils % (A) 0 %; Eosinophils # (A) 0.1 k/uL (0-0.7); Eosinophils % (A) 1 %; HCT 41.8 % (34.0-46.0); HGB 13.4 gm/dL (11.4-16.0); Hypochromasia Slight; Lymphocytes # (A) 1.5 k/uL (1.0-4.8); Lymphocytes % (A) 14 %; MCH 31.2 pg (25.0-35.0); MCV 97.7 fL (80.0-100.0); Mean Platelet Volume 8.2; Monocytes # (A) 0.9 k/uL (0-1.0); Monocytes % (A) 8 %; Neutrophils % (A) 74 %; Platelet Count 202 k/uL (150-450); RBC 4.28 m/uL (3.80-5.40); RDW 14.9 % (11.5-15.5); WBC 10.7 k/uL (3.8-10.6)
[2023-08-25 08:31] LABS: INR 4.6 (<1.2); Prothrombin Time 45.4 sec (10.0-12.5)
[2023-08-25 08:42] LABS: African American GFR (CKD) >90 (>60 ml/min/1.73 sqM); Anion Gap 9 mmol/L; Blood Urea Nitrogen 9 mg/dL (7-17); Calcium 9.5 mg/dL (8.4-10.2); Carbon Dioxide 29 mmol/L (22-30); Chloride 99 mmol/L (98-107); Glucose 81 mg/dL (74-99); Non-African American GFR(CKD) 90 (>60 ml/min/1.73 sqM); Potassium 3.6 mmol/L (3.5-5.1); Sodium 137 mmol/L (137-145)
[2023-08-25] MEDS ORDERED: LEVOTHYROXINE 75 MCG TAB PO SCH (09:00)
[2023-08-25] MEDS ORDERED: POTASSIUM CHLORIDE ER 20 MEQ TAB.ER PO STA (09:02)
[2023-08-25] MEDS ORDERED: MAGNESIUM SULFATE-D5W PMX 1 GM in DEXTROSE/WATER 1 100ML.BAG IVPB SCH (09:15)
[2023-08-25] MEDS: METOPROLOL TARTRATE 25 MG TAB PO SCH ×2 (09:36→19:46)
[2023-08-25] MEDS: DIVALPROEX 250 MG TABLET.DR PO SCH ×2 (09:36→19:46)
[2023-08-25] MEDS: HEPARIN SODIUM,PORCINE 5,000 UNIT/ML 1 ML VIAL SQ SCH (09:36)
[2023-08-25] MEDS: MAGNESIUM SULFATE-D5W PMX 1 GM in DEXTROSE/WATER 1 100ML.BAG IVPB SCH ×2 (12:36→13:32)
[2023-08-25] MEDS: LACTOBACILLUS ACIDOPHILUS/PECT 1 EACH CAPSULE PO SCH ×2 (13:32→19:46)
--- NOTE | 2023-08-25 14:03 | P.CRDCN ---
History of Present Illness History of present illness: HISTORY OF PRESENT ILLNESS: This is a 83-year-old female with a past medical history significant for persistent atrial fibrillation, hypertension, hypothyroidism, and diverticulosis. 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 We have been asked to see the patient in consultation for chest pain. Patient examined at the bedside. Patient presented to the hospital with a chief complaint of chest discomfort and abdominal pain. She states 2 days ago she had pain on the right side of her chest that felt like a tight squeezing sensation. She denied any radiation of the pain. She states that she felt like it was hard to catch her breath at that time. The pain eventually went away on its own and she has had no further episodes of chest pain since being in the hospital. She does report having abdominal pain and diarrhea. Telemetry reveals atrial fibrillation with controlled ventricular rate. She denies any palpitations. She denies any dizziness or syncope. Patient's INR was elevated upon admission at 5.3. Repeat 4.6. DIAGNOSTICS: EKG reveals atrial fibrillation with controlled ventricular rate with nonspecific ST-T wave changes Chest xray borderline cardiomegaly and COPD. No definite acute process. Unable to exclude a subtle pulmonary nodule in the left midlung. CT abdomen and pelvis revealed diverticulosis without acute diverticulitis. Moderate fatty infiltration of the liver. Bilateral renal cyst. And small right pleural effusion. Laboratory data: WBC 10.4. Hemoglobin 13.4. Platelet count 202. INR 4.6. Sodium 137. Potassium 3.6. BUN 9. Creatinine 0.51. Troponin negative x 3. Current home cardiac medications include Coumadin 1 mg on every day except Wednesday and metoprolol tartrate 25 mg twice a day Most recent echocardiogram obtained in June 2021 revealed ejection fraction 50 to 55% with mild MR and mild TR Cardiac catheterization history: Patient denies REVIEW OF SYSTEMS: At the time of my exam: CONSTITUTIONAL: Denies fever or chills. HEENT: Denies blurred vision, vision changes, or eye pain. Denies hemoptysis CARDIOVASCULAR: Denies chest pain. Denies orthopnea. Denies PND. Denies palpitations RESPIRATORY: Denies shortness of breath. GASTROINTESTINAL: Reports abdominal pain. Denies nausea or vomiting. HEMATOLOGIC: Denies bleeding disorders. GENITOURINARY: Denies any blood in urine. SKIN: Denies pruitis. Denies rash. PHYSICAL EXAM: VITAL SIGNS: Reviewed. GENERAL: Well-developed in no acute distress. HEENT: Head is normocephalic. Pupils are equal, round. Sclerae anicteric. Mucous membranes of the mouth are moist. Neck supple. No JVD or thyromegaly LUNGS: Respirations even and unlabored. Lungs essentially clear to auscultation bilaterally. HEART: Irregular rate and rhythm. S1 and S2 heard. Systolic murmur noted ABDOMEN: Soft. Nondistended. Tenderness upon palpation EXTREMITIES: Normal range of motion. No clubbing or cyanosis. Peripheral pulses intact. Trace bilateral ankle edema noted. NEUROLOGIC: Awake and alert. Oriented x 3. ASSESSMENT: Abdominal pain with diverticulosis Chest pain, noncardiac, troponin negative x 3 Persistent atrial fibrillation with controlled ventricular rate Supratherapeutic INR Hypertension Hypothyroidism PLAN: An acute coronary event has been ruled out Obtain 2D echo to assess cardiac structure and function Coumadin remains on hold secondary to elevated INR. Continue to monitor INR daily and resume once coagulopathy has resolved In the future, will consider transitioning patient to NOAC such as Eliquis or Xarelto Further recommendations pending patient course Nurse practitioner note has been reviewed by physician. Signing provider agrees with the documented findings, assessment, and plan of care documented by SOCCER REFEREE as a scribe. Past Medical History Past Medical History: Atrial Fibrillation, Asthma, Hyperlipidemia, Hypertension History of Any Multi-Drug Resistant Organisms: None Reported Past Surgical History: Appendectomy Additional Past Surgical History / Comment(s): laser for gallstone Past Anesthesia/Blood Transfusion Reactions: No Reported Reaction Additional Past Anesthesia/Blood Transfusion Reaction / Comment(s): Last blood transfusion 08/1969. No reaction. Past Psychological History: No Psychological Hx Reported Smoking Status: Never smoker Past Alcohol Use History: Occasional Additional Past Alcohol Use History / Comment(s): drinks only on football days Past Drug Use History: None Reported - Past Family History Mother Family Medical History: CVA/TIA Father Family Medical History: Cancer Medications and Allergies Home Medications Medication Instructions Recorded Confirmed Type Divalproex [Depakote] 250 mg PO BID 12/22/17 08/24/23 History Levothyroxine Sodium [Synthroid] 75 mcg PO DAILY 12/22/17 08/24/23 History Metoprolol Tartrate 25 mg PO BID 12/22/17 08/24/23 History Warfarin [Coumadin] 1 mg PO [id number]@0900 12/22/17 08/24/23 History Zolpidem Tartrate [Ambien] 10 mg PO HS 12/22/17 08/24/23 History Calcium/Magnesium/Zinc 400mg 1 tab PO BID 08/24/23 08/24/23 History Probiotic/Prebiotic Gummy 2 tab PO BID 08/24/23 08/24/23 History Vancomycin HCl [Vancocin HCl] 250 mg PO QID 08/24/23 08/24/23 History Allergies Allergy/AdvReac Type Severity Reaction Status Date / Time No Known Allergies Allergy Verified 08/24/23 15:53 Physical Exam Vitals: Vital Signs Temp Pulse Pulse Resp BP BP Pulse Ox 08/25/23 12:00 97.8 F 94 16 115/63 94 L 08/25/23 08:00 98 F 75 16 126/65 100 08/25/23 04:12 87 16 143/81 94 L 08/25/23 02:00 85 08/25/23 00:12 85 16 141/76 94 L 08/24/23 20:00 88 08/24/23 19:48 97.2 F L 88 16 157/90 93 L 08/24/23 17:56 92 16 174/81 92 L 08/24/23 17:37 68 16 140/86 98 08/24/23 16:00 68 16 150/86 93 L 08/24/23 15:00 74 20 159/88 95 08/24/23 14:27 70 16 159/74 94 L 08/24/23 14:12 20 08/24/23 14:10 68 Intake and Output 08/24/23 08/25/23 08/25/23 22:59 06:59 14:59 Intake Total 180 Balance 180 Intake: Oral 180 Other: Voiding Method Toilet Toilet Toilet Diaper Diaper Diaper # Voids 1 1 1 # Bowel Movements 1 1 Weight 57 kg Results 08/25/23 07:34 08/25/23 07:34 Cardiac Enzymes 08/24/23 08/24/23 08/24/23 Range/Units 13:41 13:41 18:42 AST 31 (14-36) U/L Troponin I <0.012 <0.012 (0.000-0.034) ng/mL 08/24/23 Range/Units 20:57 AST (14-36) U/L Troponin I <0.012 (0.000-0.034) ng/mL Coagulation 08/24/23 08/25/23 Range/Units 13:41 07:34 PT 51.7 H 45.4 H (10.0-12.5) sec APTT 50.1 H (22.0-30.0) sec CBC 08/24/23 08/25/23 Range/Units 13:41 07:34 WBC 7.5 10.7 H (3.8-10.6) k/uL RBC 4.26 4.28 (3.80-5.40) m/uL Hgb 13.4 13.4 (11.4-16.0) gm/dL Hct 41.1 41.8 (34.0-46.0) % Plt Count 166 202 (150-450) k/uL Comprehensive Metabolic Panel 08/24/23 08/25/23 Range/Units 13:41 07:34 Sodium 139 137 (137-145) mmol/L Potassium 3.7 3.6 (3.5-5.1) mmol/L Chloride 104 99 (98-107) mmol/L Carbon Dioxide 29 29 (22-30) mmol/L BUN 9 9 (7-17) mg/dL Creatinine 0.50 L 0.51 L (0.52-1.04) mg/dL Glucose 88 81 (74-99) mg/dL Calcium 9.5 9.5 (8.4-10.2) mg/dL AST 31 (14-36) U/L ALT 17 (4-34) U/L Alkaline Phosphatase 103 (38-126) U/L Total Protein 6.0 L (6.3-8.2) g/dL Albumin 3.3 L (3.5-5.0) g/dL Current Medications Generic Name Dose Route Start Last Admin Trade Name Freq PRN Reason Stop Dose Admin Acetaminophen 650 mg 08/24/23 16:46 08/25/23 13:32 Acetaminophen Tab 325 Mg Tab PO 650 mg Q6HR PRN Administration Mild Pain or Fever > 100.5 Divalproex Sodium 250 mg 08/24/23 21:00 08/25/23 09:36 Divalproex 250 Mg Tablet.Dr PO 250 mg BID PAMELA Administration Magnesium Sulfate/Dextrose 1 100 mls @ 100 mls/hr 08/25/23 12:00 08/25/23 13:32 gm/ IV Solution IVPB 08/25/23 13:59 100 mls/hr Q1H PAMELA Administration Lactobacillus Acidophilus 1 each 08/25/23 13:30 08/25/23 13:32 Lactobacillus Acidophilus/Pect 1 Each Capsule PO 1 each BID PAMELA Administration Levothyroxine Sodium 75 mcg 08/25/23 06:00 08/25/23 06:08 Levothyroxine 75 Mcg Tab PO 75 mcg 0600 PAMELA Administration Metoprolol Tartrate 25 mg 08/24/23 21:00 08/25/23 09:36 Metoprolol Tartrate 25 Mg Tab PO 25 mg BID PAMELA Administration Naloxone HCl 0.2 mg 08/24/23 16:46 Naloxone 0.4 Mg/Ml 1 Ml Vial IV Q2M PRN Opioid Reversal Ondansetron HCl 4 mg 08/24/23 19:03 Ondansetron 4 Mg/2 Ml Vial IVP Q6HR PRN Nausea And Vomiting Pantoprazole Sodium 40 mg 08/24/23 19:15 08/25/23 06:08 Pantoprazole 40 Mg Tablet PO 40 mg AC-BID PAMELA Administration Zolpidem Tartrate 10 mg 08/24/23 21:00 08/24/23 19:55 Zolpidem 5 Mg Tab PO 10 mg HS PAMELA Administration Intake and Output 08/24/23 08/25/23 08/25/23 22:59 06:59 14:59 Intake Total 180 Balance 180 Intake: Oral 180 Other: Voiding Method Toilet Toilet Toilet Diaper Diaper Diaper # Voids 1 1 1 # Bowel Movements 1 1 Weight 57 kg 08/25/23 07:34 08/25/23 07:34
[2023-08-25] MEDS: ZOLPIDEM 5 MG TAB PO SCH (19:46)
[2023-08-25] MEDS ORDERED: LOPERAMIDE 2 MG CAP PO PRN (21:38)
--- NOTE | 2023-08-25 22:24 | P.PN ---
Subjective Progress Note Date: 08/25/23 Patient is a 83-year-old female with a past medical history of atrial fibrillation on anticoagulation with Coumadin, asthma, hypertension, hyperlipidemia presents to ER with complaints of chest pain. Pain is mainly in the mid retrosternal going up from the epigastric region. No associated nausea or vomiting. No headache or dizziness.. Patient was noted to be in atrial fibrillation with rate controlled by EMS. No fever no chills. No cough or sputum production. Denied any shortness of breath. Patient states that she has been having diverticulitis for the past 3 months and was taking antibiotics which she completed a couple days ago. She was also complaining of diarrhea with loose stools. Also complaining of left lower quadrant abdominal pain. Denied any hematemesis or melena. Patient has follow- up appointment with gastroenterology. Chest x-ray showed borderline cardiomegaly and COPD. No definite acute process. Unable to exclude subtle pulmonary nodule in the left mid lung. Outpatient CT follow-up to exclude an underlying pulmonary nodule. EKG showed atrial fibrillation with heart rate 83. CT of the abdomen pelvis showed diverticulosis without acute diverticulitis. Follow-up can be performed as clinically indicated. Moderate fatty infiltration of the liver. Bilateral renal cysts. Small right pleural effusion. Laboratory data showed WBC 7.4 hemoglobin 13.4 and platelets 166 INR 5.3 Troponin 3 negative. Magnesium 1.0 proBNP 3100 and lipase 50. 08/25/2023 Patient is currently lying in the bed. Patient is complaining of intermittent chest pains mainly in the right upper chest. No nausea or vomiting. Also complaining of left lower quadrant abdominal pain. Still having diarrhea. C. difficile negative. INR is improving to 4.6. Coumadin is on hold. WBC 10.7 hemoglobin 13.4 and platelets 202, BUN 9 and creatinine 0.41 Current medications reviewed. Objective - Vital Signs Vital signs: Vital Signs Temp 97.8 F 08/25/23 19:45 Pulse 84 08/25/23 20:00 Resp 16 08/25/23 19:45 BP 120/80 08/25/23 19:45 Pulse Ox 93 L 08/25/23 19:45 FiO2 Intake & Output 08/25/23 08/25/23 08/26/23 06:59 18:59 06:59 Intake Total 360 120 Balance 360 120 Intake: Oral 360 120 Other: Voiding Method Toilet Toilet Toilet Diaper Diaper Diaper # Voids 1 1 1 # Bowel Movements 1 1 - Exam PHYSICAL EXAMINATION: Patient is lying in the bed comfortably, no acute distress, awake alert and oriented.. HEENT: Normocephalic. Neck is supple. Pupils reactive. Nostrils clear. Oral cavity is moist. Neck reveals no JVD, carotid bruits, or thyromegaly. CHEST EXAMINATION: Trachea is central. Symmetrical expansion. Bibasilar diminished sounds. No wheezing or rhonchi.. CARDIAC: Normal S1, S2 with no gallops. No murmurs . Irregular rhythm. ABDOMEN: Soft. Bowel sounds normal. Left lower quadrant tenderness mild. No guarding or rigidity. No organomegaly. No abdominal bruits. Extremities: reveal no edema. No clubbing or cyanosis Neurologically awake, alert, oriented x3 with well-coordinated movements. No focal deficits noted Skin: No rash or skin lesions. Psychiatric: Coperative. Nonsuicidal Musculoskeletal: No joint swelling or deformity. Normal range of motion. - Labs CBC & Chem 7: 08/25/23 07:34 08/25/23 07:34 Labs: Abnormal Lab Results - Last 24 Hours (Table) 08/25/23 08/25/23 08/25/23 Range/Units 07:34 07:34 07:34 WBC 10.7 H (3.8-10.6) k/uL Neutrophils # 8.0 H (1.3-7.7) k/uL PT 45.4 H (10.0-12.5) sec INR 4.6 H (<1.2) Creatinine 0.51 L (0.52-1.04) mg/dL Assessment and Plan Assessment: Atypical chest pain. Ruled out ACS. Recent acute diverticulitis. Completed antibiotic course [address] of the abdomen pelvis showed no evidence of acute diverticulitis. Acute diarrhea. Rule out C. diff infection due to recent antibiotic use. Severe hypomagnesemia and hypokalemia Chronic atrial fibrillation on anticoagulation with Coumadin. Rate controlled. Supratherapeutic INR level. Hypertension Hyperlipidemia Asthma Hypothyroidism GI prophylaxis with Protonix Subtle pulmonary nodule in the left midlung suspected as per chest x-ray. Recommended outpatient CT follow-up Plan: Patient will be continued on telemetry monitoring. Follow-up serial EKG and troponin 3. CT of the abdomen pelvis showed no evidence of acute diverticulitis. negative C. diff toxin. Coumadin is on hold due to supratherapeutic INR level Replace magnesium Cardiology consult for further evaluation. Restarted home medications. Continue to follow closely. Time with Patient: Greater than 30
[2023-08-26 05:54] LABS: Appearance,Urine Clear (Clear); Bilirubin,Urine Negative (Negative); Blood,Urine Negative (Negative); Color,Urine Yellow; Glucose,Urine (UA) Negative (Negative); Hyaline Casts,Urine 3 /lpf (0-2); Ketones,Urine Negative (Negative); Leukocyte Esterase,Urine Small (Negative); Mucus,Urine Few /hpf; Nitrite,Urine Negative (Negative); Protein,Urine 1+ (Negative); RBC,Urine 3 /hpf (0-5); Specific Gravity,Urine 1.039 (1.001-1.035); Squamous Epithelial Cell,Urine 3 /hpf (0-4); Urobilinogen,Urine <2.0 mg/dL (<2.0); WBC,Urine 3 /hpf (0-5)
[2023-08-26] MEDS: LEVOTHYROXINE 75 MCG TAB PO SCH (06:40)
[2023-08-26] MEDS: PANTOPRAZOLE 40 MG TABLET PO SCH ×2 (06:40→17:40)
[2023-08-26 07:44] LABS: Basophils % (A) 0 %; Eosinophils # (A) 0.1 k/uL (0-0.7); Eosinophils % (A) 2 %; HCT 40.8 % (34.0-46.0); HGB 12.9 gm/dL (11.4-16.0); Hypochromasia Slight; Lymphocytes # (A) 1.5 k/uL (1.0-4.8); Lymphocytes % (A) 36 %; MCHC 31.6 g/dL (31.0-37.0); MCV 98.2 fL (80.0-100.0); Mean Platelet Volume 7.6; Monocytes # (A) 0.6 k/uL (0-1.0); Monocytes % (A) 15 %; Neutrophils # (A) 1.8 k/uL (1.3-7.7); Neutrophils % (A) 43 %; Platelet Count 178 k/uL (150-450); RBC 4.16 m/uL (3.80-5.40); RDW 14.6 % (11.5-15.5); WBC 4.1 k/uL (3.8-10.6)
[2023-08-26 08:00] LABS: INR 3.7 (<1.2)
[2023-08-26 08:01] LABS: Prothrombin Time 36.4 sec (10.0-12.5)
[2023-08-26 08:39] LABS: African American GFR (CKD) >90 (>60 ml/min/1.73 sqM); Anion Gap 1 mmol/L; Blood Urea Nitrogen 11 mg/dL (7-17); Calcium 9.4 mg/dL (8.4-10.2); Carbon Dioxide 33 mmol/L (22-30); Chloride 104 mmol/L (98-107); Glucose 85 mg/dL (74-99); Non-African American GFR(CKD) 83 (>60 ml/min/1.73 sqM); Potassium 4.5 mmol/L (3.5-5.1); Sodium 138 mmol/L (137-145)
[2023-08-26] MEDS: LACTOBACILLUS ACIDOPHILUS/PECT 1 EACH CAPSULE PO SCH ×2 (09:51→19:48)
[2023-08-26] MEDS: DIVALPROEX 250 MG TABLET.DR PO SCH ×2 (09:51→19:48)
[2023-08-26] MEDS: METOPROLOL TARTRATE 25 MG TAB PO SCH ×2 (09:51→19:48)
--- NOTE | 2023-08-26 10:16 | P.PN ---
Subjective HISTORY OF PRESENT ILLNESS: This is a 83-year-old female with a past medical history significant for persistent atrial fibrillation, hypertension, hypothyroidism, and diverticulosis. 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 We have been asked to see the patient in consultation for chest pain. Patient examined at the bedside. Patient presented to the hospital with a chief complaint of chest discomfort and abdominal pain. She states 2 days ago she had pain on the right side of her chest that felt like a tight squeezing sensation. She denied any radiation of the pain. She states that she felt like it was hard to catch her breath at that time. The pain eventually went away on its own and she has had no further episodes of chest pain since being in the hospital. She does report having abdominal pain and diarrhea. Telemetry reveals atrial fibrillation with controlled ventricular rate. She denies any palpitations. She denies any dizziness or syncope. Patient's INR was elevated upon admission at 5.3. Repeat 4.6. DIAGNOSTICS: EKG reveals atrial fibrillation with controlled ventricular rate with nonspecific ST-T wave changes Chest xray borderline cardiomegaly and COPD. No definite acute process. Unable to exclude a subtle pulmonary nodule in the left midlung. CT abdomen and pelvis revealed diverticulosis without acute diverticulitis. Moderate fatty infiltration of the liver. Bilateral renal cyst. And small right pleural effusion. Laboratory data: WBC 10.4. Hemoglobin 13.4. Platelet count 202. INR 4.6. Sodium 137. Potassium 3.6. BUN 9. Creatinine 0.51. Troponin negative x 3. Current home cardiac medications include Coumadin 1 mg on every day except Wednesday and metoprolol tartrate 25 mg twice a day Most recent echocardiogram obtained in June 2021 revealed ejection fraction 50 to 55% with mild MR and mild TR Cardiac catheterization history: Patient denies August 26, 2023 Patient examined this morning at bedside. Patient denies any chest pain or pressure. She denies any shortness of breath. Patient continues to report but reports improvement this morning. She also reports improvement in her diarrhea. She reports good oral intake. 2D echo is currently pending. Telemetry reveals atrial fibrillation with controlled ventricular rate. INR today 3.7. PHYSICAL EXAM: VITAL SIGNS: Reviewed. GENERAL: Well-developed in no acute distress. HEENT: Head is normocephalic. Pupils are equal, round. Sclerae anicteric. Mucous membranes of the mouth are moist. Neck supple. No JVD or thyromegaly LUNGS: Respirations even and unlabored. Lungs essentially clear to auscultation bilaterally. HEART: Irregular rate and rhythm. S1 and S2 heard. Systolic murmur noted ABDOMEN: Soft. Nondistended. Tenderness upon palpation EXTREMITIES: Normal range of motion. No clubbing or cyanosis. Peripheral pulses intact. Trace bilateral ankle edema noted. NEUROLOGIC: Awake and alert. Oriented x 3. ASSESSMENT: Abdominal pain with diverticulosis Chest pain, noncardiac, troponin negative x 3 Persistent atrial fibrillation with controlled ventricular rate Supratherapeutic INR Hypertension Hypothyroidism PLAN: 2D echo is currently pending. Await results. Coumadin remains on hold secondary to elevated INR. Continue to monitor INR daily. Will have case management check coverage for Eliquis. If patient is covered, may begin Eliquis 2.5 mg twice a day due to patient age and weight once coagulopathy resolves Further recommendations pending patient course Nurse practitioner note has been reviewed by physician. Signing provider agrees with the documented findings, assessment, and plan of care documented by COVER REMOVER as a scribe. Objective - Vital Signs Vital signs: Vital Signs Temp 97.3 F L 08/26/23 08:00 Pulse 88 08/26/23 08:00 Resp 16 08/26/23 08:00 BP 133/66 08/26/23 08:00 Pulse Ox 93 L 08/26/23 08:00 FiO2 Intake & Output 08/25/23 08/26/23 08/26/23 18:59 06:59 18:59 Intake Total 360 120 180 Balance 360 120 180 Intake: Oral 360 120 180 Other: Voiding Method Toilet Toilet Toilet Diaper Diaper Diaper # Voids 1 2 # Bowel Movements 1 1 - Labs CBC & Chem 7: 08/26/23 07:21 08/26/23 07:21 Labs: Abnormal Lab Results - Last 24 Hours (Table) 08/26/23 08/26/23 08/26/23 Range/Units 05:00 07:21 07:21 PT 36.4 H (10.0-12.5) sec INR 3.7 H (<1.2) Carbon Dioxide 33 H (22-30) mmol/L Ur Specific [place] 1.039 H (1.001-1.035) Urine Protein 1+ H (Negative) Ur Leukocyte Esterase Small H (Negative) Hyaline Casts 3 H (0-2) /lpf Urine Mucus Few H (None) /hpf
--- NOTE | 2023-08-26 12:11 | CA ---
Transthoracic Echo Report Name: Falguni Sorenson Age: 83 Gender: F : 1940 Exam Date: 08/25/2023 16:27 Exam Location: [facility] Ht (in): 62 Wt (lb): 125 Ordering Physician: Aretha Gutierrez Attending/Referring Phys: [id number], Matt Equipment Planner Yvonne Perez RDCS Procedure CPT: Indications: LV function, chest pain Cardiac Hx: Technical Quality: Fair Contrast 1: Total Dose (mL): Contrast 2: Total Dose (mL): MEASUREMENTS (Male / Female) Normal Values 2D ECHO LV Diastolic Diameter PLAX 3.9 cm 4.2 - 5.9 / 3.9 - 5.3 cm LV Systolic Diameter PLAX 2.9 cm IVS Diastolic Thickness 1.2 cm 0.6 - 1.0 / 0.6 - 0.9 cm LVPW Diastolic Thickness 1.3 cm 0.6 - 1.0 / 0.6 - 0.9 cm LV Relative Wall Thickness 0.7 RV Internal Dim ED PLAX 3.2 cm LA Volume 69.7 cm??? 18 - 58 / 22 - 52 cm??? LA Volume Index 44.1 cm???/m??? 16 - 28 cm???/m??? M-MODE Aortic Root Diameter MM 3.1 cm LA Systolic Diameter MM 5.5 cm LA Ao Ratio MM 1.8 AV Cusp Separation MM 1.7 cm DOPPLER AV Peak Velocity 106.6 cm/s AV Peak Gradient 4.5 mmHg AV Mean Velocity 78.5 cm/s AV Mean Gradient 2.7 mmHg AV Velocity Time Integral 22.1 cm AI Peak Velocity 228.4 cm/s AI Peak Gradient 20.9 mmHg AI Pressure Half Time 317.3 ms MV Area PHT 4.0 cm??? Mitral E Point Velocity 96.4 cm/s Mitral A Point Velocity 0.5 cm/s Mitral E to A Ratio 179.3 MV Deceleration Time 191.4 ms MV E' Velocity 8.6 cm/s Mitral E to MV E' Ratio 11.2 TR Peak Velocity 232.5 cm/s TR Peak Gradient 21.6 mmHg Right Ventricular Systolic Press 26.6 mmHg FINDINGS Left Ventricle Mildly increased left ventricular wall thickness. Left ventricular cavity size normal. No obvious regional wall motion abnormalities. Left ventricular ejection fraction is estimated at 50-55 %. Right Ventricle Normal right ventricular size and function. Right Atrium Severe right atrial dilatation. Left Atrium Moderately increased left atrial volume. Mildly increased left atrial area. Mitral Valve Structurally normal mitral valve. Moderate mitral annular calcification. Moderate mitral regurgitation. Aortic Valve Trileaflet aortic valve. No aortic stenosis. Trace to mild aortic regurgitation. Thickened aortic valve without stenosis. Tricuspid Valve Structurally normal tricuspid valve. Moderate tricuspid regurgitation. Pulmonic Valve Structurally normal pulmonic valve. Pericardium No pericardial effusion. Aorta Normal size aortic root and proximal ascending aorta. CONCLUSIONS Normal LV systolic function Moderate mitral regurgitation Mild aortic regurgitation Previewed by: Dr. Cb Obando MD (Electronically Signed) Final Date: 26 August 2023 12:10
[2023-08-26] MEDS: ZOLPIDEM 5 MG TAB PO SCH (19:48)
[2023-08-27] MEDS: LEVOTHYROXINE 75 MCG TAB PO SCH (06:16)
[2023-08-27] MEDS: PANTOPRAZOLE 40 MG TABLET PO SCH ×2 (06:16→17:18)
[2023-08-27] MEDS: METOPROLOL TARTRATE 25 MG TAB PO SCH ×2 (08:01→22:51)
[2023-08-27] MEDS: LACTOBACILLUS ACIDOPHILUS/PECT 1 EACH CAPSULE PO SCH ×2 (08:01→22:51)
[2023-08-27] MEDS: DIVALPROEX 250 MG TABLET.DR PO SCH ×2 (08:01→22:51)
[2023-08-27 09:44] LABS: INR 2.9 (<1.2); Prothrombin Time 28.8 sec (10.0-12.5)
[2023-08-27 10:29] LABS: African American GFR (CKD) >90 (>60 ml/min/1.73 sqM); Anion Gap 1 mmol/L; Blood Urea Nitrogen 13 mg/dL (7-17); Calcium 9.3 mg/dL (8.4-10.2); Carbon Dioxide 33 mmol/L (22-30); Chloride 105 mmol/L (98-107); Glucose 111 mg/dL (74-99); Non-African American GFR(CKD) 82 (>60 ml/min/1.73 sqM); Potassium 4.6 mmol/L (3.5-5.1); Sodium 139 mmol/L (137-145)
--- NOTE | 2023-08-27 13:30 | P.PN ---
Subjective HISTORY OF PRESENT ILLNESS: This is a 83-year-old female with a past medical history significant for persistent atrial fibrillation, hypertension, hypothyroidism, and diverticulosis. 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 We have been asked to see the patient in consultation for chest pain. Patient examined at the bedside. Patient presented to the hospital with a chief complaint of chest discomfort and abdominal pain. She states 2 days ago she had pain on the right side of her chest that felt like a tight squeezing sensation. She denied any radiation of the pain. She states that she felt like it was hard to catch her breath at that time. The pain eventually went away on its own and she has had no further episodes of chest pain since being in the hospital. She does report having abdominal pain and diarrhea. Telemetry reveals atrial fibrillation with controlled ventricular rate. She denies any palpitations. She denies any dizziness or syncope. Patient's INR was elevated upon admission at 5.3. Repeat 4.6. DIAGNOSTICS: EKG reveals atrial fibrillation with controlled ventricular rate with nonspecific ST-T wave changes Chest xray borderline cardiomegaly and COPD. No definite acute process. Unable to exclude a subtle pulmonary nodule in the left midlung. CT abdomen and pelvis revealed diverticulosis without acute diverticulitis. Moderate fatty infiltration of the liver. Bilateral renal cyst. And small right pleural effusion. Laboratory data: WBC 10.4. Hemoglobin 13.4. Platelet count 202. INR 4.6. Sodium 137. Potassium 3.6. BUN 9. Creatinine 0.51. Troponin negative x 3. Current home cardiac medications include Coumadin 1 mg on every day except Wednesday and metoprolol tartrate 25 mg twice a day Most recent echocardiogram obtained in June 2021 revealed ejection fraction 50 to 55% with mild MR and mild TR Cardiac catheterization history: Patient denies August 26, 2023 Patient examined this morning at bedside. Patient denies any chest pain or pressure. She denies any shortness of breath. Patient continues to report but reports improvement this morning. She also reports improvement in her diarrhea. She reports good oral intake. 2D echo is currently pending. Telemetry reveals atrial fibrillation with controlled ventricular rate. INR today 3.7. Addendum entered and electronically signed by Aretha Gutierrez NP-C 08/26/23 13:59: Echocardiogram completed revealing normal LV systolic function, moderate MR, mild aortic regurgitation Patient's co-pay for Eliquis is $31.80 a month which patient is agreeable to per case management. When patient's INR is less than 2, we will initiate Eliquis 2.5 mg twice a day August 27, 2023 Patient examined this morning. Patient's family is at the bedside. Patient currently denies chest pain or pressure. She denies shortness of breath. She reports improvement in her abdominal pain. She continues to report diarrhea. Telemetry reveals atrial fibrillation with heart in the 60s. INR today 2.9. PHYSICAL EXAM: VITAL SIGNS: Reviewed. GENERAL: Well-developed in no acute distress. HEENT: Head is normocephalic. Pupils are equal, round. Sclerae anicteric. Mucous membranes of the mouth are moist. Neck supple. No JVD or thyromegaly LUNGS: Respirations even and unlabored. Lungs essentially clear to auscultation bilaterally. HEART: Irregular rate and rhythm. S1 and S2 heard. Systolic murmur noted ABDOMEN: Soft. Nondistended. Tenderness upon palpation EXTREMITIES: Normal range of motion. No clubbing or cyanosis. Peripheral pulses intact. Trace bilateral ankle edema noted. NEUROLOGIC: Awake and alert. Oriented x 3. ASSESSMENT: Abdominal pain with diverticulosis Chest pain, noncardiac, troponin negative x 3 Persistent atrial fibrillation with controlled ventricular rate Supratherapeutic INR Hypertension Hypothyroidism PLAN: Continue current cardiac medications Continue telemetry monitoring Continue to monitor INR. Once INR is less than 2, will begin Eliquis 2.5 mg twice a day due to patient age and weight Further recommendations pending patient course Nurse practitioner note has been reviewed by physician. Signing provider agrees with the documented findings, assessment, and plan of care documented by E D TECH as a scribe. Objective - Vital Signs Vital signs: Vital Signs Temp 97.9 F 08/27/23 07:57 Pulse 84 08/27/23 11:17 Resp 16 08/27/23 13:09 BP 151/91 08/27/23 11:17 Pulse Ox 92 L 08/27/23 11:17 FiO2 Intake & Output 08/26/23 08/27/23 08/27/23 18:59 06:59 18:59 Intake Total 360 0 440 Balance 360 0 440 Intake: Oral 360 0 440 Other: Voiding Method Toilet Toilet Toilet Diaper Diaper Diaper # Voids 1 2 1 # Bowel Movements 2 - Labs CBC & Chem 7: 08/26/23 07:21 08/27/23 09:14 Labs: Abnormal Lab Results - Last 24 Hours (Table) 08/26/23 08/27/23 08/27/23 Range/Units 05:00 09:14 09:14 PT 28.8 H (10.0-12.5) sec INR 2.9 H (<1.2) Carbon Dioxide 33 H (22-30) mmol/L Glucose 111 H (74-99) mg/dL Stool Lactoferrin Positive A (Negative)
[2023-08-27] MEDS: ZOLPIDEM 5 MG TAB PO SCH (22:51)
--- NOTE | 2023-08-28 02:07 | P.PN ---
Subjective Progress Note Date: 08/26/23 Patient is a 83-year-old female with a past medical history of atrial fibrillation on anticoagulation with Coumadin, asthma, hypertension, hyperlipidemia presents to ER with complaints of chest pain. Pain is mainly in the mid retrosternal going up from the epigastric region. No associated nausea or vomiting. No headache or dizziness.. Patient was noted to be in atrial fibrillation with rate controlled by EMS. No fever no chills. No cough or sputum production. Denied any shortness of breath. Patient states that she has been having diverticulitis for the past 3 months and was taking antibiotics which she completed a couple days ago. She was also complaining of diarrhea with loose stools. Also complaining of left lower quadrant abdominal pain. Denied any hematemesis or melena. Patient has follow- up appointment with gastroenterology. Chest x-ray showed borderline cardiomegaly and COPD. No definite acute process. Unable to exclude subtle pulmonary nodule in the left mid lung. Outpatient CT follow-up to exclude an underlying pulmonary nodule. EKG showed atrial fibrillation with heart rate 83. CT of the abdomen pelvis showed diverticulosis without acute diverticulitis. Follow-up can be performed as clinically indicated. Moderate fatty infiltration of the liver. Bilateral renal cysts. Small right pleural effusion. Laboratory data showed WBC 7.4 hemoglobin 13.4 and platelets 166 INR 5.3 Troponin 3 negative. Magnesium 1.0 proBNP 3100 and lipase 50. 08/25/2023 Patient is currently lying in the bed. Patient is complaining of intermittent chest pains mainly in the right upper chest. No nausea or vomiting. Also complaining of left lower quadrant abdominal pain. Still having diarrhea. C. difficile negative. INR is improving to 4.6. Coumadin is on hold. WBC 10.7 hemoglobin 13.4 and platelets 202, BUN 9 and creatinine 0.41 08/26/2023 Patient is currently lying in the bed. Awake alert and oriented. Denies any complaints of chest pain or pressure. No shortness of breath. Still complains of left lower quadrant abdominal pain. Patient did have 2 episodes of diarrhea this morning. Slight improvement in diarrhea compared yesterday. Patient is able to tolerate oral diet. No nausea or vomiting. 2D echocardiogram is pending. Otherwise patient remains in atrial fibrillation. INR is 3.7 today. BUN 11 and creatinine 0.63 and urinalysis is negative for infection. Stool lactoferrin positive. C. difficile negative. Cardiology is on board. Current medications reviewed. Objective - Vital Signs Vital signs: Vital Signs Temp 96.2 F L 08/26/23 18:20 Pulse 96 08/26/23 18:20 Resp 16 08/26/23 20:43 BP 143/72 08/26/23 18:20 Pulse Ox 96 08/26/23 18:20 FiO2 Intake & Output 08/26/23 08/26/23 08/27/23 06:59 18:59 06:59 Intake Total 120 360 0 Balance 120 360 0 Intake: Oral 120 360 0 Other: Voiding Method Toilet Toilet Diaper Diaper # Voids 2 1 # Bowel Movements 1 - Exam PHYSICAL EXAMINATION: Patient is lying in the bed comfortably, no acute distress, awake alert and oriented.. HEENT: Normocephalic. Neck is supple. Pupils reactive. Nostrils clear. Oral cavity is moist. Neck reveals no JVD, carotid bruits, or thyromegaly. CHEST EXAMINATION: Trachea is central. Symmetrical expansion. Bibasilar diminished sounds. No wheezing or rhonchi.. CARDIAC: Normal S1, S2 with no gallops. No murmurs . Irregular rhythm. ABDOMEN: Soft. Bowel sounds normal. Left lower quadrant tenderness mild. No guarding or rigidity. No organomegaly. No abdominal bruits. Extremities: reveal no edema. No clubbing or cyanosis Neurologically awake, alert, oriented x3 with well-coordinated movements. No focal deficits noted Skin: No rash or skin lesions. Psychiatric: Coperative. Nonsuicidal Musculoskeletal: No joint swelling or deformity. Normal range of motion. - Labs CBC & Chem 7: 08/26/23 07:21 08/27/23 09:14 Labs: Abnormal Lab Results - Last 24 Hours (Table) 08/26/23 08/26/23 08/26/23 Range/Units 05:00 05:00 07:21 PT 36.4 H (10.0-12.5) sec INR 3.7 H (<1.2) Carbon Dioxide (22-30) mmol/L Ur Specific [place] 1.039 H (1.001-1.035) Urine Protein 1+ H (Negative) Ur Leukocyte Esterase Small H (Negative) Hyaline Casts 3 H (0-2) /lpf Urine Mucus Few H (None) /hpf Stool Lactoferrin Positive A (Negative) 08/26/23 Range/Units 07:21 PT (10.0-12.5) sec INR (<1.2) Carbon Dioxide 33 H (22-30) mmol/L Ur Specific [place] (1.001-1.035) Urine Protein (Negative) Ur Leukocyte Esterase (Negative) Hyaline Casts (0-2) /lpf Urine Mucus (None) /hpf Stool Lactoferrin (Negative) Assessment and Plan Assessment: Atypical chest pain. Ruled out ACS. Recent acute diverticulitis. Completed antibiotic course [address] of the abdomen pelvis showed no evidence of acute diverticulitis. Acute diarrhea. Ruled out C. diff infection due to recent antibiotic use. improving. Severe hypomagnesemia and hypokalemia Chronic atrial fibrillation on anticoagulation with Coumadin. Rate controlled. Supratherapeutic INR level. Hypertension Hyperlipidemia Asthma Hypothyroidism GI prophylaxis with Protonix Subtle pulmonary nodule in the left midlung suspected as per chest x-ray. Recommended outpatient CT follow-up Plan: Patient will be continued on telemetry monitoring. Follow-up serial EKG and troponin 3. CT of the abdomen pelvis showed no evidence of acute diverticulitis. negative C. diff toxin. Follow-up stool studies. Continue with lactobacillus and Imodium as needed. Coumadin is on hold due to supratherapeutic INR level Replaced magnesium Cardiology consult for further evaluation. Restarted home medications. Continue to follow closely. Time with Patient: Greater than 30
--- NOTE | 2023-08-28 02:10 | P.PN ---
Subjective Progress Note Date: 08/27/23 Patient is a 83-year-old female with a past medical history of atrial fibrillation on anticoagulation with Coumadin, asthma, hypertension, hyperlipidemia presents to ER with complaints of chest pain. Pain is mainly in the mid retrosternal going up from the epigastric region. No associated nausea or vomiting. No headache or dizziness.. Patient was noted to be in atrial fibrillation with rate controlled by EMS. No fever no chills. No cough or sputum production. Denied any shortness of breath. Patient states that she has been having diverticulitis for the past 3 months and was taking antibiotics which she completed a couple days ago. She was also complaining of diarrhea with loose stools. Also complaining of left lower quadrant abdominal pain. Denied any hematemesis or melena. Patient has follow- up appointment with gastroenterology. Chest x-ray showed borderline cardiomegaly and COPD. No definite acute process. Unable to exclude subtle pulmonary nodule in the left mid lung. Outpatient CT follow-up to exclude an underlying pulmonary nodule. EKG showed atrial fibrillation with heart rate 83. CT of the abdomen pelvis showed diverticulosis without acute diverticulitis. Follow-up can be performed as clinically indicated. Moderate fatty infiltration of the liver. Bilateral renal cysts. Small right pleural effusion. Laboratory data showed WBC 7.4 hemoglobin 13.4 and platelets 166 INR 5.3 Troponin 3 negative. Magnesium 1.0 proBNP 3100 and lipase 50. 08/25/2023 Patient is currently lying in the bed. Patient is complaining of intermittent chest pains mainly in the right upper chest. No nausea or vomiting. Also complaining of left lower quadrant abdominal pain. Still having diarrhea. C. difficile negative. INR is improving to 4.6. Coumadin is on hold. WBC 10.7 hemoglobin 13.4 and platelets 202, BUN 9 and creatinine 0.41 08/26/2023 Patient is currently lying in the bed. Awake alert and oriented. Denies any complaints of chest pain or pressure. No shortness of breath. Still complains of left lower quadrant abdominal pain. Patient did have 2 episodes of diarrhea this morning. Slight improvement in diarrhea compared yesterday. Patient is able to tolerate oral diet. No nausea or vomiting. 2D echocardiogram is pending. Otherwise patient remains in atrial fibrillation. INR is 3.7 today. BUN 11 and creatinine 0.63 and urinalysis is negative for infection. Stool lactoferrin positive. C. difficile negative. Cardiology is on board. 08/27/2023 Patient is resting in the bed. Awake alert and oriented x 3. Feels better today. No complaints of chest pain or shortness of breath. No nausea vomiting. Abdominal pain is much improved. Diarrhea is also improving with more formed stool today. Patient has been afebrile. Tolerating oral diet. No cough or sputum production. Patient is currently on room air. Remains in atrial fibrillation. INR came down to 2.9 today. Eliquis was sent to pharmacy. Cardiology is on board. Current medications reviewed. Objective - Vital Signs Vital signs: Vital Signs Temp 97.6 F 08/27/23 19:45 Pulse 81 08/27/23 19:50 Resp 17 08/27/23 19:50 BP 133/71 08/27/23 19:45 Pulse Ox 96 08/27/23 19:45 FiO2 Intake & Output 08/27/23 08/27/23 08/28/23 06:59 18:59 06:59 Intake Total 0 662 Balance 0 662 Intake: Oral 0 662 Other: Voiding Method Toilet Toilet Diaper Diaper # Voids 2 1 # Bowel Movements 2 - Exam PHYSICAL EXAMINATION: Patient is lying in the bed comfortably, no acute distress, awake alert and oriented.. HEENT: Normocephalic. Neck is supple. Pupils reactive. Nostrils clear. Oral cavity is moist. Neck reveals no JVD, carotid bruits, or thyromegaly. CHEST EXAMINATION: Trachea is central. Symmetrical expansion. Bibasilar diminished sounds. No wheezing or rhonchi.. CARDIAC: Normal S1, S2 with no gallops. No murmurs . Irregular rhythm. ABDOMEN: Soft. Bowel sounds normal. Left lower quadrant tenderness mild. No guarding or rigidity. No organomegaly. No abdominal bruits. Extremities: reveal no edema. No clubbing or cyanosis Neurologically awake, alert, oriented x3 with well-coordinated movements. No focal deficits noted Skin: No rash or skin lesions. Psychiatric: Coperative. Nonsuicidal Musculoskeletal: No joint swelling or deformity. Normal range of motion. - Labs CBC & Chem 7: 08/26/23 07:21 08/27/23 09:14 Labs: Abnormal Lab Results - Last 24 Hours (Table) 08/27/23 08/27/23 Range/Units 09:14 09:14 PT 28.8 H (10.0-12.5) sec INR 2.9 H (<1.2) Carbon Dioxide 33 H (22-30) mmol/L Glucose 111 H (74-99) mg/dL Assessment and Plan Assessment: Atypical chest pain. Ruled out ACS. Recent acute diverticulitis. Completed antibiotic course [address] of the abdomen pelvis showed no evidence of acute diverticulitis. Acute diarrhea. Ruled out C. diff infection due to recent antibiotic use. improving. Severe hypomagnesemia and hypokalemia Chronic atrial fibrillation on anticoagulation with Coumadin. Rate controlled. Supratherapeutic INR level. Hypertension Hyperlipidemia Asthma Hypothyroidism GI prophylaxis with Protonix Subtle pulmonary nodule in the left midlung suspected as per chest x-ray. Recommended outpatient CT follow-up Plan: Patient will be continued on telemetry monitoring. Follow-up serial EKG and troponin 3. CT of the abdomen pelvis showed no evidence of acute diverticulitis. negative C. diff toxin. Follow-up stool studies. Continue with lactobacillus and Imodium as needed. Coumadin is on hold due to supratherapeutic INR level. Patient was tried on Eliquis 2.5 mg twice daily # is less than 2. Prescription was sent to pharmacy by cardiology. Cardiology is on board. Restarted home medications. Continue to follow closely. Anticipate discharge in next 24 hours. Time with Patient: Greater than 30
[2023-08-28 05:53] VITALS: RESP 18
[2023-08-28] MEDS: PANTOPRAZOLE 40 MG TABLET PO SCH (06:12)
[2023-08-28] MEDS: LEVOTHYROXINE 75 MCG TAB PO SCH (06:12)
[2023-08-28] MEDS: LACTOBACILLUS ACIDOPHILUS/PECT 1 EACH CAPSULE PO SCH (07:58)
[2023-08-28] MEDS: DIVALPROEX 250 MG TABLET.DR PO SCH (07:58)
[2023-08-28] MEDS: METOPROLOL TARTRATE 25 MG TAB PO SCH (07:58)
[2023-08-28 08:08] VITALS: TEMP 97.6
[2023-08-28 08:48] LABS: Basophils % (A) 0 %; Eosinophils # (A) 0.2 k/uL (0-0.7); Eosinophils % (A) 3 %; HCT 40.7 % (34.0-46.0); HGB 12.7 gm/dL (11.4-16.0); Hypochromasia Moderate; Lymphocytes # (A) 1.4 k/uL (1.0-4.8); Lymphocytes % (A) 28 %; MCH 31.2 pg (25.0-35.0); MCHC 31.4 g/dL (31.0-37.0); MCV 99.4 fL (80.0-100.0); Mean Platelet Volume 7.7; Monocytes # (A) 0.8 k/uL (0-1.0); Monocytes % (A) 15 %; Neutrophils # (A) 2.7 k/uL (1.3-7.7); Neutrophils % (A) 52 %; Platelet Count 214 k/uL (150-450); RBC 4.09 m/uL (3.80-5.40); RDW 14.5 % (11.5-15.5); WBC 5.2 k/uL (3.8-10.6)
[2023-08-28 09:07] LABS: INR 2.1 (<1.2); Prothrombin Time 20.7 sec (10.0-12.5)
[2023-08-28 09:31] LABS: African American GFR (CKD) >90 (>60 ml/min/1.73 sqM); Anion Gap 3 mmol/L; Blood Urea Nitrogen 14 mg/dL (7-17); Calcium 9.2 mg/dL (8.4-10.2); Carbon Dioxide 34 mmol/L (22-30); Chloride 104 mmol/L (98-107); Glucose 101 mg/dL (74-99); Non-African American GFR(CKD) 85 (>60 ml/min/1.73 sqM); Potassium 3.9 mmol/L (3.5-5.1); Sodium 141 mmol/L (137-145)
[2023-08-28 11:11] VITALS: BP 149/86; PULSE 87
[2023-08-28 11:29] LABS: Glucose,Whole Blood 96 mg/dL (70-110)
--- NOTE | 2023-08-28 11:58 | P.PN ---
Subjective HISTORY OF PRESENT ILLNESS: This is a 83-year-old female with a past medical history significant for persistent atrial fibrillation, hypertension, hypothyroidism, and diverticulosis. 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 We have been asked to see the patient in consultation for chest pain. Patient examined at the bedside. Patient presented to the hospital with a chief complaint of chest discomfort and abdominal pain. She states 2 days ago she had pain on the right side of her chest that felt like a tight squeezing sensation. She denied any radiation of the pain. She states that she felt like it was hard to catch her breath at that time. The pain eventually went away on its own and she has had no further episodes of chest pain since being in the hospital. She does report having abdominal pain and diarrhea. Telemetry reveals atrial fibrillation with controlled ventricular rate. She denies any palpitations. She denies any dizziness or syncope. Patient's INR was elevated upon admission at 5.3. Repeat 4.6. DIAGNOSTICS: EKG reveals atrial fibrillation with controlled ventricular rate with nonspecific ST-T wave changes Chest xray borderline cardiomegaly and COPD. No definite acute process. Unable to exclude a subtle pulmonary nodule in the left midlung. CT abdomen and pelvis revealed diverticulosis without acute diverticulitis. Moderate fatty infiltration of the liver. Bilateral renal cyst. And small right pleural effusion. Laboratory data: WBC 10.4. Hemoglobin 13.4. Platelet count 202. INR 4.6. Sodium 137. Potassium 3.6. BUN 9. Creatinine 0.51. Troponin negative x 3. Current home cardiac medications include Coumadin 1 mg on every day except Wednesday and metoprolol tartrate 25 mg twice a day Most recent echocardiogram obtained in June 2021 revealed ejection fraction 50 to 55% with mild MR and mild TR Cardiac catheterization history: Patient denies August 26, 2023 Patient examined this morning at bedside. Patient denies any chest pain or pressure. She denies any shortness of breath. Patient continues to report but reports improvement this morning. She also reports improvement in her diarrhea. She reports good oral intake. 2D echo is currently pending. Telemetry reveals atrial fibrillation with controlled ventricular rate. INR today 3.7. Addendum entered and electronically signed by Aretha Gutierrez NP-C 08/26/23 13:59: Echocardiogram completed revealing normal LV systolic function, moderate MR, mild aortic regurgitation Patient's co-pay for Eliquis is $31.80 a month which patient is agreeable to per case management. When patient's INR is less than 2, we will initiate Eliquis 2.5 mg twice a day August 27, 2023 Patient examined this morning. Patient's family is at the bedside. Patient currently denies chest pain or pressure. She denies shortness of breath. She reports improvement in her abdominal pain. She continues to report diarrhea. Telemetry reveals atrial fibrillation with heart in the 60s. INR today 2.9. August 28, 2023 Patient examined this morning at the bedside. Patient denies chest pain or p ressure. She denies shortness of breath. She reports improvement in her abdominal pain. She states her diarrhea is improving. INR today is 2.1. Telemetry reveals atrial fibrillation with controlled ventricular rate. Patient is hoping to be discharged home today. PHYSICAL EXAM: VITAL SIGNS: Reviewed. GENERAL: Well-developed in no acute distress. HEENT: Head is normocephalic. Pupils are equal, round. Sclerae anicteric. Mucous membranes of the mouth are moist. Neck supple. No JVD or thyromegaly LUNGS: Respirations even and unlabored. Lungs essentially clear to auscultation bilaterally. HEART: Irregular rate and rhythm. S1 and S2 heard. Systolic murmur noted ABDOMEN: Soft. Nondistended. Tenderness upon palpation EXTREMITIES: Normal range of motion. No clubbing or cyanosis. Peripheral pulses intact. Trace bilateral ankle edema noted. NEUROLOGIC: Awake and alert. Oriented x 3. ASSESSMENT: Abdominal pain with diverticulosis Chest pain, noncardiac, troponin negative x 3 Persistent atrial fibrillation with controlled ventricular rate Supratherapeutic INR Hypertension Hypothyroidism PLAN: Continue current cardiac medications Continue telemetry monitoring May begin Eliquis 2.5 mg twice a day tomorrow morning Patient is currently stable for discharge home today from a cardiac standpoint Nurse practitioner note has been reviewed by physician. Signing provider agrees with the documented findings, assessment, and plan of care documented by FINANCIAL LEGAL ASSISTANT as a scribe. Objective - Vital Signs Vital signs: Vital Signs Temp 97.6 F 08/28/23 11:03 Pulse 87 08/28/23 11:05 Resp 18 08/28/23 11:05 BP 149/86 08/28/23 11:03 Pulse Ox 91 L 08/28/23 11:03 FiO2 Intake & Output 01/26/24 01/27/24 01/27/24 18:59 06:59 18:59 Intake Total 662 10 240 Balance 662 10 240 Intake: IV 10 Invasive Line 1 10 Oral 662 240 Other: Voiding Method Toilet Toilet Diaper Diaper # Voids 1 1 2 # Bowel Movements 2 1 2 - Labs CBC & Chem 7: 08/28/23 07:57 08/28/23 07:57 Labs: Abnormal Lab Results - Last 24 Hours (Table) 08/28/23 08/28/23 Range/Units 07:57 07:57 PT 20.7 H (10.0-12.5) sec INR 2.1 H (<1.2) Carbon Dioxide 34 H (22-30) mmol/L Glucose 101 H (74-99) mg/dL Microbiology - Last 24 Hours (Table) 08/26/23 05:00 Stool Culture - Preliminary Stool
== END 2023-08-28 15:49 | disposition home or self-care (01) | DRG 392 ==
LOC: EC 13:18 → 3SCARD 16:47
PROVIDERS: ADMIT Internal Medicine; ATTEND Internal Medicine
DX: K57.30 Diverticulosis of large intestine without perforation or abscess without bleeding (principal); I48.19 Other persistent atrial fibrillation; R07.89 Other chest pain; K76.0 Fatty (change of) liver, not elsewhere classified; E03.9 Hypothyroidism, unspecified; I10 Essential (primary) hypertension; J45.909 Unspecified asthma, uncomplicated; Z66 Do not resuscitate; Z28.310 Unvaccinated for COVID-19; I08.0 Rheumatic disorders of both mitral and aortic valves; E78.5 Hyperlipidemia, unspecified; E83.42 Hypomagnesemia; N28.1 Cyst of kidney, acquired; R79.1 Abnormal coagulation profile; R91.1 Solitary pulmonary nodule; Z79.890 Hormone replacement therapy; Z79.01 Long term (current) use of anticoagulants; Z79.899 Other long term (current) drug therapy
CPT/HCPCS: 36415; 71046; 74177; 80048; 80053; 81001; 83630; 83690; 83735; 83880; 83993; 84484; 85025; 85610; 85730; 87045; 87046; 87324; 93005; 93306; 96365; 99285

== ENCOUNTER 2023-12-27 07:12 | Inpatient (IN) | payer MEDICARE, BC ==
[2023-12-27] MEDS: ALBUTEROL NEBULIZED 2.5 MG/3 ML INHALATION STA (07:30)
[2023-12-27] MEDS: IPRATROPIUM 0.5 MG/2.5 ML NEBU INHALATION STA (07:30)
--- NOTE | 2023-12-27 07:37 | ED ---
General Adult HPI - General Chief complaint: Shortness of Breath Stated complaint: Difficulty Breathing, Weakness Time Seen by Provider: 12/27/23 07:18 Source: patient, RN notes reviewed, old records reviewed Mode of arrival: wheelchair Limitations: no limitations - History of Present Illness Initial comments: 83 female presenting for evaluation of cough and dyspnea. Patient has had upper respiratory symptoms for the past several days. Patient denies substernal chest pain. States she has some bilateral chest pain with cough. No measured fever. Patient is in moderate respiratory distress limiting history. Son states she has history of atrial fibrillation she is on Eliquis. She also has history of asthma and COPD. - Related Data Home Medications Medication Instructions Recorded Confirmed Divalproex [Depakote] 250 mg PO BID 12/22/17 08/24/23 Levothyroxine Sodium [Synthroid] 75 mcg PO DAILY 12/22/17 08/24/23 Metoprolol Tartrate 25 mg PO BID 12/22/17 08/24/23 Zolpidem Tartrate [Ambien] 10 mg PO HS 12/22/17 08/24/23 Calcium/Magnesium/Zinc 400mg 1 tab PO BID 08/24/23 08/24/23 Probiotic/Prebiotic Gummy 2 tab PO BID 08/24/23 08/24/23 Vancomycin HCl [Vancocin HCl] 250 mg PO QID 08/24/23 08/24/23 Previous Rx's Medication Instructions Recorded Apixaban [Eliquis] 2.5 mg PO BID #60 tab 08/26/23 Allergies Allergy/AdvReac Type Severity Reaction Status Date / Time No Known Allergies Allergy Verified 08/24/23 15:53 Review of Systems ROS Statement: Those systems with pertinent positive or pertinent negative responses have been documented in the HPI. ROS Other: All systems not noted in ROS Statement are negative. Past Medical History Past Medical History: Atrial Fibrillation, Asthma, Hyperlipidemia, Hypertension History of Any Multi-Drug Resistant Organisms: None Reported Past Surgical History: Appendectomy Additional Past Surgical History / Comment(s): laser for gallstone Past Anesthesia/Blood Transfusion Reactions: No Reported Reaction Additional Past Anesthesia/Blood Transfusion Reaction / Comment(s): Last blood transfusion 08/1969. No reaction. Past Psychological History: No Psychological Hx Reported Smoking Status: Never smoker Past Alcohol Use History: Occasional Past Drug Use History: None Reported - Past Family History Mother Family Medical History: CVA/TIA Father Family Medical History: Cancer General Exam Limitations: no limitations General appearance: alert, in distress Head exam: Present: atraumatic Eye exam: Present: normal appearance, PERRL ENT exam: Present: mucous membranes dry Neck exam: Present: normal inspection. Absent: tenderness, meningismus Respiratory exam: Present: respiratory distress, wheezes, decreased breath sounds, prolonged expiratory Cardiovascular Exam: Present: tachycardia, irregular rhythm GI/Abdominal exam: Present: soft. Absent: distended, tenderness, guarding, rebound Extremities exam: Present: normal inspection. Absent: pedal edema, calf tenderness Neurological exam: Present: alert, oriented X3 Psychiatric exam: Present: normal affect, normal mood Skin exam: Present: warm, dry, intact Course Vital Signs 12/27/23 12/27/23 12/27/23 07:15 07:33 07:46 Temperature 98.4 F Pulse Rate 100 96 106 H Respiratory 32 H 30 H Rate Blood Pressure 121/80 143/85 O2 Sat by Pulse 84 L 98 Oximetry 12/27/23 12/27/23 07:55 08:11 Temperature Pulse Rate 112 H Respiratory 30 H Rate Blood Pressure O2 Sat by Pulse Oximetry Medical Decision Making - Medical Decision Making Was pt. sent in by a medical professional or institution (, PA, FUR BLOWING MACHINE OPERATOR, urgent care, hospital, or penitentiary...) When possible be specific @ -No Did you speak to anyone other than the patient for history (EMS, parent, family, police, friend...)? What history was obtained from this source @Patient's son Did you review nursing and triage notes (agree or disagree)? Why? @ -I reviewed and agree with nursing and triage notes Were old charts reviewed (outside hosp., previous admission, EMS record, old EKG, old radiological studies, urgent care reports/EKG's, penitentiary records)? Report findings @ -No old charts were reviewed Differential Dyspnea: Coronary syndrome, arrhythmia, tamponade, asthma, COPD, pulmonary embolism, pneumonia, pneumothorax, pulmonary effusion, anaphylaxis, diabetic ketoacidosis, flailed chest, pulmonary contusion, diaphragmatic rupture, anemia, neuromuscular, this is not meant to be an all-inclusive list. EKG interpreted by me (3pts min.). @EKG: Atrial fibrillation with RVR rate of 115, QRS duration 87, QTc [address] segment elevation, ST segment depression in V4 and V5 X-rays interpreted by me (1pt min.). @ -Chest x-ray, negative for pneumothorax, no focal pneumonia CT interpreted by me (1pt min.). @ -None done U/S interpreted by me (1pt. min.). @ -None done What testing was considered but not performed or refused? (CT, X-rays, U/S, labs)? Why? @ -None What meds were considered but not given or refused? Why? @ -None Did you discuss the management of the patient with other professionals (professionals i.e. , PA, FUR BLOWING MACHINE OPERATOR, lab, RT, psych nurse, social and human services assistant, wax specialist, teacher, corporate responsibility officer, special education case manager)? Give summary @ -[EMH will admit Was smoking cessation discussed for >3mins.? @ -No Was critical care preformed (if so, how long)? @ -Yes, 35 minutes Were there social determinants of health that impacted care today? How? (Homelessness, low income, unemployed, alcoholism, drug addiction, transportation, low edu. Level, literacy, decrease access to med. care, skilled nursing, rehab)? @ -No Was there de-escalation of care discussed even if they declined (Discuss DNR or withdrawal of care, Hospice)? DNR status @ -Asthma, atrial fibrillation What co-morbidities impacted this encounter? (DM, HTN, Smoking, COPD, CAD, Cancer, CVA, ARF, Chemo, Hep., AIDS, mental health diagnosis, sleep apnea, morbid obesity)? @ -83-year-old female presenting with cough, dyspnea. Patient hypoxic upon arrival. She is cyanotic. Placed on supplemental oxygen, given albuterol, Atrovent, steroids. She is wheezing diffusely with decreased air entry. No fever. No leukocytosis. Laboratory testing reveals hypomagnesemia, chronic CO2 retention, otherwise normal laboratory testing. Patient will be admitted for COPD exacerbation. Pulmonology placed on consult. Case discussed with Tricia leal for [facility] Was patient admitted / discharged? Hospital course, mention meds given and route, prescriptions, significant lab abnormalities, going to OR and other pertinent info. @ -Hospital course Undiagnosed new problem with uncertain prognosis? @ -No Drug Therapy requiring intensive monitoring for toxicity (Heparin, Nitro, Insul in, Cardizem)? @ -No Were any procedures done? @ -No Diagnosis/symptom? @ -COPD exacerbation, atrial fibrillation, hypomagnesemia Acute, or Chronic, or Acute on Chronic? @Acute Uncomplicated (without systemic symptoms) or Complicated (systemic symptoms)? @Acute Side effects of treatment? @ -No Exacerbation, Progression, or Severe Exacerbation? @ -No Poses a threat to life or bodily function? How? (Chest pain, [place], [place], pneumonia, PE, COPD, DKA, ARF, appy, cholecystitis, CVA, Diverticulitis, Homicidal, Suicidal, threat to staff... and all critical care pts) @Yes, respiratory failure - Lab Data Result diagrams: 12/27/23 07:33 12/27/23 07:33 Lab Results 12/27/23 12/27/23 12/27/23 Range/Units 07:33 07:33 07:33 WBC 7.2 (3.8-10.6) k/uL RBC 4.49 (3.80-5.40) m/uL Hgb 13.8 (11.4-16.0) gm/dL Hct 41.9 (34.0-46.0) % MCV 93.2 (80.0-100.0) fL MCH 30.7 (25.0-35.0) pg MCHC 32.9 (31.0-37.0) g/dL RDW 13.9 (11.5-15.5) % Plt Count 160 (150-450) k/uL MPV 8.3 Neutrophils % 59 % Lymphocytes % 26 % Monocytes % 11 % Eosinophils % 1 % Basophils % 1 % Neutrophils # 4.2 (1.3-7.7) k/uL Lymphocytes # 1.9 (1.0-4.8) k/uL Monocytes # 0.8 (0-1.0) k/uL Eosinophils # 0.1 (0-0.7) k/uL Basophils # 0.1 (0-0.2) k/uL PT 11.6 (10.0-12.5) sec INR 1.1 (<1.2) APTT 27.3 (22.0-30.0) sec VBG pH (7.31-7.41) VBG pCO2 (37-51) mmHg VBG HCO3 (24-28) mmol/L Sodium 134 L (137-145) mmol/L Potassium 4.1 (3.5-5.1) mmol/L Chloride 94 L (98-107) mmol/L Carbon Dioxide 35 H (22-30) mmol/L Anion Gap 5 mmol/L BUN 11 (7-17) mg/dL Creatinine 0.51 L (0.52-1.04) mg/dL Est GFR (CKD-EPI)AfAm >90 (>60 ml/min/1.73 sqM) Est GFR (CKD-EPI)NonAf 90 (>60 ml/min/1.73 sqM) Glucose 131 H (74-99) mg/dL Plasma Lactic Acid Andrew (0.7-2.0) mmol/L Calcium 9.4 (8.4-10.2) mg/dL Magnesium 0.9 L* (1.6-2.3) mg/dL Total Bilirubin 0.8 (0.2-1.3) mg/dL AST 26 (14-36) U/L ALT 12 (4-34) U/L Alkaline Phosphatase 78 (38-126) U/L Troponin I (0.000-0.034) ng/mL NT-Pro-B Natriuret Pep 3470 pg/mL Total Protein 7.2 (6.3-8.2) g/dL Albumin 4.1 (3.5-5.0) g/dL Influenza Type A (PCR) (Not Detectd) Influenza Type B (PCR) (Not Detectd) RSV (PCR) (Not Detectd) SARS-CoV-2 (PCR) (Not Detectd) 12/27/23 12/27/23 12/27/23 Range/Units 07:33 07:33 07:33 WBC (3.8-10.6) k/uL RBC (3.80-5.40) m/uL Hgb (11.4-16.0) gm/dL Hct (34.0-46.0) % MCV (80.0-100.0) fL MCH (25.0-35.0) pg MCHC (31.0-37.0) g/dL RDW (11.5-15.5) % Plt Count (150-450) k/uL MPV Neutrophils % % Lymphocytes % % Monocytes % % Eosinophils % % Basophils % % Neutrophils # (1.3-7.7) k/uL Lymphocytes # (1.0-4.8) k/uL Monocytes # (0-1.0) k/uL Eosinophils # (0-0.7) k/uL Basophils # (0-0.2) k/uL PT (10.0-12.5) sec INR (<1.2) APTT (22.0-30.0) sec VBG pH 7.35 (7.31-7.41) VBG pCO2 58 H (37-51) mmHg VBG HCO3 32 H (24-28) mmol/L Sodium (137-145) mmol/L Potassium (3.5-5.1) mmol/L Chloride (98-107) mmol/L Carbon Dioxide (22-30) mmol/L Anion Gap mmol/L BUN (7-17) mg/dL Creatinine (0.52-1.04) mg/dL Est GFR (CKD-EPI)AfAm (>60 ml/min/1.73 sqM) Est GFR (CKD-EPI)NonAf (>60 ml/min/1.73 sqM) Glucose (74-99) mg/dL Plasma Lactic Acid Andrew 1.3 (0.7-2.0) mmol/L Calcium (8.4-10.2) mg/dL Magnesium (1.6-2.3) mg/dL Total Bilirubin (0.2-1.3) mg/dL AST (14-36) U/L ALT (4-34) U/L Alkaline Phosphatase (38-126) U/L Troponin I <0.012 (0.000-0.034) ng/mL NT-Pro-B Natriuret Pep pg/mL Total Protein (6.3-8.2) g/dL Albumin (3.5-5.0) g/dL Influenza Type A (PCR) (Not Detectd) Influenza Type B (PCR) (Not Detectd) RSV (PCR) (Not Detectd) SARS-CoV-2 (PCR) (Not Detectd) 12/27/23 Range/Units 07:47 WBC (3.8-10.6) k/uL RBC (3.80-5.40) m/uL Hgb (11.4-16.0) gm/dL Hct (34.0-46.0) % MCV (80.0-100.0) fL MCH (25.0-35.0) pg MCHC (31.0-37.0) g/dL RDW (11.5-15.5) % Plt Count (150-450) k/uL MPV Neutrophils % % Lymphocytes % % Monocytes % % Eosinophils % % Basophils % % Neutrophils # (1.3-7.7) k/uL Lymphocytes # (1.0-4.8) k/uL Monocytes # (0-1.0) k/uL Eosinophils # (0-0.7) k/uL Basophils # (0-0.2) k/uL PT (10.0-12.5) sec INR (<1.2) APTT (22.0-30.0) sec VBG pH (7.31-7.41) VBG pCO2 (37-51) mmHg VBG HCO3 (24-28) mmol/L Sodium (137-145) mmol/L Potassium (3.5-5.1) mmol/L Chloride (98-107) mmol/L Carbon Dioxide (22-30) mmol/L Anion Gap mmol/L BUN (7-17) mg/dL Creatinine (0.52-1.04) mg/dL Est GFR (CKD-EPI)AfAm (>60 ml/min/1.73 sqM) Est GFR (CKD-EPI)NonAf (>60 ml/min/1.73 sqM) Glucose (74-99) mg/dL Plasma Lactic Acid Andrew (0.7-2.0) mmol/L Calcium (8.4-10.2) mg/dL Magnesium (1.6-2.3) mg/dL Total Bilirubin (0.2-1.3) mg/dL AST (14-36) U/L ALT (4-34) U/L Alkaline Phosphatase (38-126) U/L Troponin I (0.000-0.034) ng/mL NT-Pro-B Natriuret Pep pg/mL Total Protein (6.3-8.2) g/dL Albumin (3.5-5.0) g/dL Influenza Type A (PCR) Not Detected (Not Detectd) Influenza Type B (PCR) Not Detected (Not Detectd) RSV (PCR) Not Detected (Not Detectd) SARS-CoV-2 (PCR) Not Detected (Not Detectd) Critical Care Time Critical Care Time: Yes Total Critical Care Time: 35 Disposition Clinical Impression: Atrial fibrillation with RVR, Hypomagnesemia, Hypoxia, Acute exacerbation of chronic obstructive pulmonary disease Disposition: ADMITTED IP TO THIS HOSP Condition: Stable Is patient prescribed a controlled substance at d/c from ED?: No Referrals: Noel Angulo MD [Primary Care Provider] - 1-2 days Time of Disposition: 08:39
[2023-12-27] MEDS: methylPREDNISolone SOD SUCCI 125 MG/2 ML VIAL IV STA (07:43)
--- NOTE | 2023-12-27 07:54 | XR ---
EXAMINATION TYPE: XR chest 1V portable DATE OF EXAM: 12/27/2023 7:50 AM CLINICAL INDICATION:Female, 83 years old with history of sob; [facility] COMPARISON: Chest radiographs from 08/24/2023 TECHNIQUE: XR chest 1V portable Frontal view of the chest. FINDINGS: Lungs/Pleura: There is no evidence of pleural effusion, focal consolidation, or pneumothorax. Pulmonary vascularity: Unremarkable. Heart/mediastinum: Cardiomediastinal silhouette is unremarkable. Musculoskeletal: No acute osseous pathology. IMPRESSION: No acute cardiopulmonary disease/process.
[2023-12-27 07:56] LABS: VBG PH 7.35 (7.31-7.41)
[2023-12-27 07:57] LABS: ALT 12 U/L (4-34); AST 26 U/L (14-36); African American GFR (CKD) >90 (>60 ml/min/1.73 sqM); Albumin 4.1 g/dL (3.5-5.0); Alkaline Phosphatase 78 U/L (38-126); Anion Gap 5 mmol/L; Blood Urea Nitrogen 11 mg/dL (7-17); Calcium 9.4 mg/dL (8.4-10.2); Carbon Dioxide 35 mmol/L (22-30); Chloride 94 mmol/L (98-107); Glucose 131 mg/dL (74-99); Non-African American GFR(CKD) 90 (>60 ml/min/1.73 sqM); Potassium 4.1 mmol/L (3.5-5.1); Sodium 134 mmol/L (137-145); Total Bilirubin 0.8 mg/dL (0.2-1.3); Total Protein 7.2 g/dL (6.3-8.2)
[2023-12-27 07:58] LABS: Magnesium 0.9 mg/dL (1.6-2.3)
[2023-12-27 08:05] LABS: Basophils # (A) 0.1 k/uL (0-0.2); Basophils % (A) 1 %; Eosinophils # (A) 0.1 k/uL (0-0.7); Eosinophils % (A) 1 %; HCT 41.9 % (34.0-46.0); HGB 13.8 gm/dL (11.4-16.0); Lymphocytes # (A) 1.9 k/uL (1.0-4.8); Lymphocytes % (A) 26 %; MCH 30.7 pg (25.0-35.0); MCHC 32.9 g/dL (31.0-37.0); MCV 93.2 fL (80.0-100.0); Mean Platelet Volume 8.3; Monocytes # (A) 0.8 k/uL (0-1.0); Monocytes % (A) 11 %; NT-Pro-B-Type Natriuretic Pept 3470 pg/mL; Neutrophils # (A) 4.2 k/uL (1.3-7.7); Neutrophils % (A) 59 %; Platelet Count 160 k/uL (150-450); RBC 4.49 m/uL (3.80-5.40); RDW 13.9 % (11.5-15.5); WBC 7.2 k/uL (3.8-10.6)
[2023-12-27] MEDS: MAGNESIUM SULFATE-D5W PMX 1 GM in DEXTROSE/WATER 1 100ML.BAG IVPB SCH (08:11)
[2023-12-27 08:13] LABS: INR 1.1 (<1.2); Partial Thromboplastin Time 27.3 sec (22.0-30.0); Prothrombin Time 11.6 sec (10.0-12.5)
[2023-12-27] MEDS ORDERED: NALOXONE 0.4 MG/ML 1 ML VIAL IVP PRN (08:18)
[2023-12-27] MEDS ORDERED: IPRATROPIUM-ALBUTEROL 3 ML NEB INHALATION PRN (08:18)
[2023-12-27] MEDS: SODIUM CHLORIDE 0.9% 1,000 ML IV SCH (08:31)
[2023-12-27] MEDS: IPRATROPIUM-ALBUTEROL 3 ML NEB INHALATION SCH (11:16)
[2023-12-27] MEDS: FUROSEMIDE 10 MG/ML 4 ML VIAL IV SCH (12:09)
[2023-12-27] MEDS: methylPREDNISolone SOD SUCCI 125 MG/2 ML VIAL IV SCH (12:09)
[2023-12-27] MEDS: LEVOTHYROXINE 75 MCG TAB PO SCH (12:09)
[2023-12-27] MEDS ORDERED: DEXTROSE 50% SYRINGE 50 ML IVP PRN ×2 (12:59)
[2023-12-27] MEDS: PANTOPRAZOLE 40 MG/10 ML VIAL IVP SCH (13:39)
--- NOTE | 2023-12-27 15:36 | P.CNPUL ---
History of Present Illness Consult date: 12/27/23 Reason for consult: dyspnea History of present illness: This is a 83-year-old female patient known history of COPD/asthma, presenting to the emergency department with increased cough and chest tightness and wheezing and shortness of breath of several days duration. No reported chest pain. The patient has been maintained on Advair discus on outpatient basis. Chest x-ray with femoral admission showed some increase in pulm vascular markings perihilar the and upper lobe. Otherwise, there is no airspace disease or consolidation. The patient has a proBNP level of 3470. Troponins are negative. Electrolytes show a component of chronic metabolic alkalosis with a a serum bicarb of 35 and a sodium levels of 134. Potassium level is at 4.1. BUN 11 with a creatinine of 0.5. WBC count 7.2 with a hemoglobin of 3.8 and a platelet count of 160. The patient has no reported history of CHF. She has hypertension hyperlipidemia as comorbid conditions. The patient has normal coagulation profile. Troponins are negative. proBNP level is 3470. The viral screen was negative. Lactic acid level was at 1.3. EKG showing normal sinus rhythm with frequent PVCs. Previous echocardiogram from August 2023 has shown a preserved LV function with an ejection fraction of 50 to 55%. The patient has moderate mitral regurgitation, estimated pulmonary artery pressures were essentially within normal limits. Her current white cell count 7.2 with a hemoglobin 13.8 and a platelet count of 160. She was in the hospital back in September 2023 for chest pain that was labeled to be atypical. She is also noted diverticulosis Review of Systems Constitutional: Reports fatigue, Reports weakness Eyes: denies as per HPI, denies blurred vision, denies bulging eye, denies decreased vision, denies diplopia, denies discharge, denies dry eye, denies irritation, denies itching, denies pain, denies photophobia, denies loss of peripheral vision, denies loss of vision, denies tunnel vision/blind spots Ears: deny: decreased hearing, ear discharge, earache, tinnitus Ears, nose, mouth and throat: Reports as per HPI Breasts: absent: as per HPI, change in shape, gynecomastia, masses, nipple discharge, pain, skin changes, swelling Cardiovascular: Reports decreased exercise tolerance, Reports dyspnea on exertion, Reports irregular heart beat Respiratory: Reports cough, Reports dyspnea, Reports wheezing Genitourinary: Reports as per HPI Menstruation: Reports as per HPI Musculoskeletal: Reports as per HPI Musculoskeletal: absent: ankle pain, ankle stiffness, ankle swelling, as per HPI, elbow pain, elbow stiffness, elbow swelling, foot pain, foot stiffness, foot swelling, hand pain, hand stiffness, hand swelling, hip pain, hip stiffness, hip swelling, knee pain, knee stiffness, knee swelling, shoulder pain, shoulder stiffness, shoulder swelling, wrist pain, wrist stiffness, wrist swelling Integumentary: Reports as per HPI Neurological: Reports as per HPI Psychiatric: Reports as per HPI Endocrine: Reports as per HPI Hematologic/Lymphatic: Reports as per HPI Allergic/Immunologic: Reports as per HPI Past Medical History Past Medical History: Atrial Fibrillation, Asthma, COPD (second hand exposure to smoking), Hyperlipidemia, Hypertension History of Any Multi-Drug Resistant Organisms: None Reported Past Surgical History: Appendectomy Additional Past Surgical History / Comment(s): laser for gallstone Past Anesthesia/Blood Transfusion Reactions: No Reported Reaction Additional Past Anesthesia/Blood Transfusion Reaction / Comment(s): Last blood transfusion 08/1969. No reaction. Past Psychological History: No Psychological Hx Reported Smoking Status: Never smoker Past Alcohol Use History: Occasional Past Drug Use History: None Reported - Past Family History Mother Family Medical History: CVA/TIA Father Family Medical History: Cancer Medications and Allergies Home Medications Medication Instructions Recorded Confirmed Type Divalproex [Depakote] 250 mg PO BID 12/22/17 12/27/23 History Levothyroxine Sodium [Synthroid] 75 mcg PO DAILY 12/22/17 12/27/23 History Metoprolol Tartrate 25 mg PO BID 12/22/17 12/27/23 History Zolpidem Tartrate [Ambien] 10 mg PO HS 12/22/17 12/27/23 History Probiotic/Prebiotic Gummy 2 tab PO BID 08/24/23 12/27/23 History Apixaban [Eliquis] 2.5 mg PO BID #60 tab 08/26/23 12/27/23 Rx Magnesium 250 mg PO BID 12/27/23 12/27/23 History hydroCHLOROthiazide [Hydrodiuril] 50 mg PO DAILY 12/27/23 12/27/23 History Allergies Allergy/AdvReac Type Severity Reaction Status Date / Time No Known Allergies Allergy Verified 12/27/23 08:44 Physical Exam Vitals: Vital Signs Temp Pulse Resp BP Pulse Ox 12/27/23 10:30 81 18 134/79 99 12/27/23 10:00 95 25 H 125/80 99 12/27/23 09:30 94 25 H 129/85 100 12/27/23 09:00 101 H 27 H 118/69 100 12/27/23 08:30 116 H 27 H 146/81 12/27/23 08:11 112 H 12/27/23 08:00 118 H 27 H 143/85 12/27/23 07:55 30 H 12/27/23 07:46 106 H 30 H 143/85 98 12/27/23 07:33 96 12/27/23 07:30 101 H 33 H 143/85 95 12/27/23 07:15 98.4 F 100 32 H 121/80 84 L Intake and Output 12/26/23 12/27/23 12/27/23 22:59 06:59 14:59 Other: Weight 66.678 kg GENERAL EXAM: Alert, pleasant, 83-year-old white female, resting comfortably in bed, 2 L of oxygen, breathing comfortably, bronchospastic and wheezy HEAD: Normocephalic/atraumatic. EYES: Normal reaction of pupils, equal size. Conjunctiva pink, sclera white. NOSE: Clear with pink turbinates. THROAT: No erythema or exudates. NECK: No masses, no JVD, no thyroid enlargement, no adenopathy. CHEST: No chest wall deformity. Symmetrical expansion. LUNGS: Equal air entry with no crackles, diminished breath sounds along with prolongation of the exhalation phase of breathing and diffuse expiratory wheezes CVS: Irregular rate and rhythm, normal S1 and S2, no gallops, no murmurs, no rubs ABDOMEN: Soft, nontender. No hepatosplenomegaly, normal bowel sounds, no guarding or rigidity. EXTREMITIES: No clubbing, no edema, no cyanosis, 2+ pulses and upper and lower extremities. MUSCULOSKELETAL: Muscle strength and tone normal. SPINE: No scoliosis or deformity SKIN: No rashes CENTRAL NERVOUS SYSTEM: Alert and oriented -3. No focal deficits, tone is normal in all 4 extremities. PSYCHIATRIC: Alert and oriented -3. Appropriate affect. Intact judgment and insight. Results - Laboratory Findings CBC and BMP: 12/27/23 07:33 12/27/23 07:33 PT/INR, D-dimer PT 11.6 sec (10.0-12.5) 12/27/23 07:33 INR 1.1 (<1.2) 12/27/23 07:33 Abnormal lab findings: Abnormal Labs 12/27/23 12/27/23 07:33 07:33 VBG pCO2 58 H VBG HCO3 32 H Sodium 134 L Chloride 94 L Carbon Dioxide 35 H Creatinine 0.51 L Glucose 131 H Magnesium 0.9 L* Assessment and Plan Plan: Acute exacerbation of COPD/asthma. Chest x-ray is also showing cephalization of increased pulm vascular markings in the perihilar area and and upper lobes. proBNP level is elevated. Underlying component of CHF with preserved LV function cannot be ruled out. proBNP level is elevated. Acute hypoxic respiratory failure, currently on 2 L of oxygen by nasal cannula Chronic bronchial asthma/COPD maintained on Advair Acute hypoxic respiratory failure currently on oxygen 2 L/min nasal cannula Chronic atrial fibrillation Moderate mitral regurgitation with preserved LV function Diverticulosis Hypothyroidism Hypertension Hyperlipidemia Plan Titrate FiO2 to maintain saturation above 90% Currently patient is on oxygen 2 L/min nasal cannula Continue bronchodilators with DuoNeb updrafts Continue IV Solu-Medrol Change IV fluids to KVO and start the patient on Lasix 40 mg IV every 12 hours Continue anticoagulation with Eliquis Metoprolol for rate control with a dose of 25 mg p.o. twice daily regarding chronic A-fib Resume home medications Will continue to follow
[2023-12-27 17:02] LABS: Glucose,Whole Blood 231 mg/dL (70-110)
[2023-12-27] MEDS: INSULIN ASPART (NovoLOG) 100 UNIT/ML VIAL SQ SCH (17:08)
[2023-12-27] MEDS: METOPROLOL TARTRATE 25 MG TAB PO STA (17:08)
[2023-12-27] MEDS: APIXABAN 2.5 MG TABLET PO SCH (20:29)
[2023-12-27] MEDS: ZOLPIDEM 5 MG TAB PO SCH (20:29)
[2023-12-27] MEDS: LACTOBACILLUS ACIDOPHILUS/PECT 1 EACH CAPSULE PO SCH (20:30)
[2023-12-27] MEDS: METOPROLOL TARTRATE 25 MG TAB PO SCH (20:30)
[2023-12-27] MEDS: MAGNESIUM OXIDE 400 MG TAB PO SCH (20:30)
[2023-12-27 20:49] LABS: Glucose,Whole Blood 239 mg/dL (70-110)
[2023-12-27] MEDS ORDERED: METOPROLOL TARTRATE 25 MG TAB PO SCH (21:00)
[2023-12-27] MEDS: DIVALPROEX 250 MG TABLET.DR PO SCH (21:01)
--- NOTE | 2023-12-27 23:31 | HP ---
HISTORY AND PHYSICAL CHIEF COMPLAINT: Shortness of breath and weakness. HISTORY OF PRESENT ILLNESS: This is an 83-year-old woman with a past medical history of multiple medical problems including asthma, atrial fibrillation, COPD, is complaining of shortness of breath over the past several days. The patient is also complaining of weakness. The patient is also mildly confused. The patient was admitted for further evaluation and treatment. Magnesium was found to be 0.9. COVID and viral titers are negative. Chest x-ray showed some increased bronchovascular markings, otherwise no definite pneumonia was noted at this time. PAST MEDICAL HISTORY: Reviewed include atrial ablation, asthma, COPD, rest of the history and rest of the chart is also reviewed. HOME MEDICATIONS: Again reviewed include HydroDIURIL, dose and rest of medications reviewed. ALLERGIES: None. Family history, social history, and review of systems could not be taken because of the patient's change in mental status. PHYSICAL EXAMINATION: VITAL SIGNS: Pulse is 81, blood pressure 134/70, respirations 18. HEENT: Conjunctivae normal. NECK: No jugular venous distention. CARDIOVASCULAR: S1, S2. RESPIRATIONS: Diminished at the bases, few scattered rhonchi and crackles. ABDOMEN: Soft, nontender. LEGS: No edema, no swelling. NERVOUS SYSTEM: Diffusely weak. LABORATORY DATA: CBC within normal limits. Sodium 134, rest of the labs are noted. ASSESSMENT: 1. Chronic obstructive pulmonary disease acute exacerbation with acute purulent tracheobronchitis. 2. Hyponatremia. 3. Hypomagnesemia. 4. Asthma. 5. Atrial fibrillation. 6. Hypertension. 7. Hyperlipidemia. RECOMMENDATIONS AND DISCUSSION: This 83-year-old woman presented with multiple complex medical issues, we will monitor the patient closely. I will recommend intensive bronchodilators, IV steroids, empiric antibiotics, otherwise I would also recommend pulmonary consultation with Dr. Felton. DVT prophylaxis. Home medications. Supplement magnesium. Monitor repeat lytes. Home medications will be continued once they are confirmed. Prognosis extremely guarded because of multiple complex medical issues and if the patient's sensorium remains altered, we will also consider CT scan of the brain. Further recommendations to follow. MMODL / IJN: [id number] /
[2023-12-28 03:54] LABS: Basophils % (A) 0 %; Eosinophils % (A) 0 %; HCT 41.6 % (34.0-46.0); HGB 12.4 gm/dL (11.4-16.0); Lymphocytes # (A) 0.8 k/uL (1.0-4.8); Lymphocytes % (A) 16 %; MCH 28.1 pg (25.0-35.0); MCHC 29.9 g/dL (31.0-37.0); MCV 93.8 fL (80.0-100.0); Mean Platelet Volume 7.8; Monocytes # (A) 0.3 k/uL (0-1.0); Monocytes % (A) 5 %; Neutrophils # (A) 3.8 k/uL (1.3-7.7); Neutrophils % (A) 77 %; Platelet Count 148 k/uL (150-450); RBC 4.43 m/uL (3.80-5.40); RDW 13.6 % (11.5-15.5); WBC 4.9 k/uL (3.8-10.6)
[2023-12-28 04:13] LABS: African American GFR (CKD) >90 (>60 ml/min/1.73 sqM); Anion Gap 8 mmol/L; Blood Urea Nitrogen 14 mg/dL (7-17); Calcium 8.7 mg/dL (8.4-10.2); Carbon Dioxide 35 mmol/L (22-30); Chloride 90 mmol/L (98-107); Glucose 181 mg/dL (74-99); Non-African American GFR(CKD) 83 (>60 ml/min/1.73 sqM); Sodium 133 mmol/L (137-145)
[2023-12-28 08:24] LABS: Glucose,Whole Blood 151 mg/dL (70-110)
[2023-12-28] MEDS: PANTOPRAZOLE 40 MG TABLET PO SCH (08:46)
[2023-12-28 12:31] LABS: Glucose,Whole Blood 157 mg/dL (70-110)
--- NOTE | 2023-12-28 14:03 | PN ---
PROGRESS NOTE DATE OF SERVICE: 12/28/2023 SUBJECTIVE: This is an 83-year-old woman who was admitted shortness of breath and weakness. She is improving slightly. No chest pain, no palpitations, no fever. Pulmonary is following the patient closely. Chest x-ray showed no significant evidence of pneumonia. OBJECTIVE: VITAL SIGNS: Pulse is 87, blood pressure 120/60, respirations 20. HEENT: Conjunctivae normal. NECK: No jugular venous distention. CARDIOVASCULAR: S1, S2. ABDOMEN: Soft. NERVOUS SYSTEM: Nonfocal. LABORATORY DATA: Potassium 3. ASSESSMENT: 1. Chronic obstructive pulmonary disease acute exacerbation with acute tracheobronchitis. 2. Hyponatremia. 3. Hypomagnesemia. 4. Hypokalemia. 5. Asthma. 6. Atrial fibrillation. 7. Hypertension. RECOMMENDATIONS: Recommended to continue current management, continue symptomatic treatment. Continue intensive bronchodilators, IV steroids closely with Pulmonary. Empiric antibiotics . Guarded prognosis because of multiple complex medical issues. Further recommendations to follow. MMODL / IJN: [id number] / MTDD
--- NOTE | 2023-12-28 14:43 | P.PN ---
Subjective Progress Note Date: 12/28/23 This is a 83-year-old female patient known history of COPD/asthma, presenting to the emergency department with increased cough and chest tightness and wheezing and shortness of breath of several days duration. No reported chest pain. The patient has been maintained on Advair discus on outpatient basis. Chest x-ray with femoral admission showed some increase in pulm vascular markings perihilar the and upper lobe. Otherwise, there is no airspace disease or consolidation. The patient has a proBNP level of 3470. Troponins are negative. Electrolytes show a component of chronic metabolic alkalosis with a a serum bicarb of 35 and a sodium levels of 134. Potassium level is at 4.1. BUN 11 with a creatinine of 0.5. WBC count 7.2 with a hemoglobin of 3.8 and a platelet count of 160. The patient has no reported history of CHF. She has hypertension hyperlipidemia as comorbid conditions. The patient has normal coagulation profile. Troponins are negative. proBNP level is 3470. The viral screen was negative. Lactic acid level was at 1.3. EKG showing normal sinus rhythm with frequent PVCs. Previous echocardiogram from August 2023 has shown a preserved LV function with an ejection fraction of 50 to 55%. The patient has moderate mitral regurgitation, estimated pulmonary artery pressures were essentially within normal limits. Her current white cell count 7.2 with a hemoglobin 13.8 and a platelet count of 160. She was in the hospital back in September 2023 for chest pain that was labeled to be atypical. She is also noted diverticulosis The patient is seen today December 28, 2023 in follow-up in the emergency department. She is currently sitting up on a stretcher. Awake and alert in no acute distress. She is maintaining O2 saturation in the mid 90s on 4 L/min per nasal cannula. She is afebrile. Hemodynamically stable. White count 4.9. Hemoglobin 12.4. Platelets 148. Sodium 133. Potassium 3.0. Bicarb 35. BUN 14. Creatinine 0.64. Glucose 181. She is continued on DuoNeb inhalations, Solu-Medrol. Remains on ceftriaxone. Anticoagulated with Eliquis. She is cont inued on IV diuretics. Currently in a negative balance. Objective - Vital Signs Vital signs: Vital Signs Temp 96.9 F L 12/28/23 11:19 Pulse 80 12/28/23 11:32 Resp 20 12/28/23 11:19 BP 124/62 12/28/23 11:19 Pulse Ox 96 12/28/23 11:19 FiO2 Intake & Output 12/27/23 12/28/23 12/28/23 18:59 06:59 18:59 Intake Total 230 Output Total 625 Balance -395 Weight 66.678 kg 66.678 kg Intake: Intake, IV Titration 50 Amount cefTRIAXone 2 gm In 50 Sodium Chloride 0.9% 50 ml @ 100 mls/hr IVPB Q24HR [facility] Rx#:[id number] Oral 180 Output: Urine 625 Other: Voiding Method External Catheter # Voids 1 - Exam GENERAL EXAM: Alert, pleasant 83-year-old female, on 4 L nasal cannula, c omfortable in no apparent distress. HEAD: Normocephalic. EYES: Normal reaction of pupils, equal size. NOSE: Clear with pink turbinates. THROAT: No erythema or exudates. NECK: No masses, no JVD. CHEST: No chest wall deformity. LUNGS: Equal air entry with end expiratory wheeze, diminished. CVS: S1 and S2 normal with no audible murmur, regular rhythm. ABDOMEN: No hepatosplenomegaly, normal bowel sounds, no guarding or rigidity. SPINE: No scoliosis or deformity SKIN: No rashes CENTRAL NERVOUS SYSTEM: No focal deficits, tone is normal in all 4 extremities. EXTREMITIES: There is no peripheral edema. No clubbing, no cyanosis. Peripheral pulses are intact. - Labs CBC & Chem 7: 12/28/23 03:14 12/28/23 03:14 Labs: Abnormal Lab Results - Last 24 Hours (Table) 12/27/23 12/27/23 12/28/23 Range/Units 17:01 20:48 03:14 MCHC (31.0-37.0) g/dL Plt Count (150-450) k/uL Lymphocytes # (1.0-4.8) k/uL Sodium (137-145) mmol/L Potassium (3.5-5.1) mmol/L Chloride (98-107) mmol/L Carbon Dioxide (22-30) mmol/L Glucose (74-99) mg/dL POC Glucose (mg/dL) 231 H 239 H (70-110) mg/dL Hemoglobin A1c 6.1 H (<=6.0) % Magnesium (1.6-2.3) mg/dL 12/28/23 12/28/23 12/28/23 Range/Units 03:14 03:14 03:14 MCHC 29.9 L (31.0-37.0) g/dL Plt Count 148 L (150-450) k/uL Lymphocytes # 0.8 L (1.0-4.8) k/uL Sodium 133 L (137-145) mmol/L Potassium 3.0 L (3.5-5.1) mmol/L Chloride 90 L (98-107) mmol/L Carbon Dioxide 35 H (22-30) mmol/L Glucose 181 H (74-99) mg/dL POC Glucose (mg/dL) (70-110) mg/dL Hemoglobin A1c (<=6.0) % Magnesium 1.0 L (1.6-2.3) mg/dL 12/28/23 12/28/23 Range/Units 08:21 12:30 MCHC (31.0-37.0) g/dL Plt Count (150-450) k/uL Lymphocytes # (1.0-4.8) k/uL Sodium (137-145) mmol/L Potassium (3.5-5.1) mmol/L Chloride (98-107) mmol/L Carbon Dioxide (22-30) mmol/L Glucose (74-99) mg/dL POC Glucose (mg/dL) 151 H 157 H (70-110) mg/dL Hemoglobin A1c (<=6.0) % Magnesium (1.6-2.3) mg/dL Assessment and Plan Assessment: Acute exacerbation of COPD/asthma. Chest x-ray is also showing cephalization of increased pulm vascular markings in the perihilar area and and upper lobes. proBNP level is elevated. Underlying component of CHF with preserved LV fun ction cannot be ruled out. proBNP level is elevated. Acute hypoxic respiratory failure, currently on 2 L of oxygen by nasal cannula Chronic bronchial asthma/COPD maintained on Advair Acute hypoxic respiratory failure currently on oxygen 2 L/min nasal cannula Chronic atrial fibrillation Moderate mitral regurgitation with preserved LV function Diverticulosis Hypothyroidism Hypertension Hyperlipidemia Plan: The patient was seen and evaluated Labs and medications reviewed Continue bronchodilators and steroids Continue antibiotics Anticoagulated with Eliquis Continued on IV diuretics Titrate down the FiO2 as tolerated We will continue to follow I have personally seen and examined the patient, performed the documentation and the assessment and plan as written. Number of minutes spent on the visit: 10.
[2023-12-28 17:18] LABS: Glucose,Whole Blood 145 mg/dL (70-110)
[2023-12-28] MEDS: HYDROcodone/APAP 5-325MG 1 EACH TAB PO PRN (21:33)
[2023-12-29 05:58] LABS: Glucose,Whole Blood 138 mg/dL (70-110)
[2023-12-29] MEDS ORDERED: Magnesium Replacement Protocol 1 EACH MISC MISCELLANE PRN ×2 (09:06→14:36)
[2023-12-29] MEDS ORDERED: Potassium Replacement Protocol 1 EACH MISC MISCELLANE PRN ×2 (09:06→14:36)
[2023-12-29 10:36] LABS: Basophils % (A) 0 %; Eosinophils % (A) 0 %; HCT 44.3 % (34.0-46.0); HGB 14.1 gm/dL (11.4-16.0); Lymphocytes # (A) 1.1 k/uL (1.0-4.8); Lymphocytes % (A) 7 %; MCH 29.5 pg (25.0-35.0); MCHC 31.8 g/dL (31.0-37.0); MCV 92.9 fL (80.0-100.0); Mean Platelet Volume 8.2; Monocytes # (A) 0.8 k/uL (0-1.0); Monocytes % (A) 5 %; Neutrophils # (A) 13.7 k/uL (1.3-7.7); Neutrophils % (A) 87 %; Platelet Count 192 k/uL (150-450); RBC 4.77 m/uL (3.80-5.40); RDW 13.5 % (11.5-15.5); WBC 15.8 k/uL (3.8-10.6)
[2023-12-29 11:04] LABS: African American GFR (CKD) >90 (>60 ml/min/1.73 sqM); Anion Gap 8 mmol/L; Blood Urea Nitrogen 25 mg/dL (7-17); Calcium 9.2 mg/dL (8.4-10.2); Carbon Dioxide 38 mmol/L (22-30); Chloride 84 mmol/L (98-107); Glucose 191 mg/dL (74-99); Non-African American GFR(CKD) 82 (>60 ml/min/1.73 sqM); Potassium 3.2 mmol/L (3.5-5.1); Sodium 130 mmol/L (137-145)
[2023-12-29 11:27] LABS: Glucose,Whole Blood 217 mg/dL (70-110)
[2023-12-29] MEDS: MAGNESIUM SULFATE-D5W PMX 1 GM in DEXTROSE/WATER 1 100ML.BAG IVPB SCH (11:37)
[2023-12-29] MEDS: POTASSIUM CHLORIDE ER 20 MEQ TAB.ER PO SCH (11:37)
--- NOTE | 2023-12-29 15:31 | P.PN ---
Subjective Progress Note Date: 12/29/23 Principal diagnosis: Acute exacerbation of mild intermittent asthma This is a 83-year-old female patient known history of COPD/asthma, presenting to the emergency department with increased cough and chest tightness and wheezing and shortness of breath of several days duration. No reported chest pain. The patient has been maintained on Advair discus on outpatient basis. Chest x-ray with femoral admission showed some increase in pulm vascular markings perihilar the and upper lobe. Otherwise, there is no airspace disease or consolidation. The patient has a proBNP level of 3470. Troponins are negative. Electrolytes show a component of chronic metabolic alkalosis with a a serum bicarb of 35 and a sodium levels of 134. Potassium level is at 4.1. BUN 11 with a creatinine of 0.5. WBC count 7.2 with a hemoglobin of 3.8 and a platelet count of 160. The patient has no reported history of CHF. She has hypertension hyperlipidemia as comorbid conditions. The patient has normal coagulation profile. Troponins are negative. proBNP level is 3470. The viral screen was negative. Lactic acid level was at 1.3. EKG showing normal sinus rhythm with frequent PVCs. Previous echocardiogram from August 2023 has shown a preserved LV function with an ejection fraction of 50 to 55%. The patient has moderate mitral regurgitation, estimated pulmonary artery pressures were essentially within normal limits. Her current white cell count 7.2 with a hemoglobin 13.8 and a platelet count of 160. She was in the hospital back in September 2023 for chest pain that was labeled to be atypical. She is also noted diverticulosis The patient is seen today December 28, 2023 in follow-up in the emergency department. She is currently sitting up on a stretcher. Awake and alert in no acute distress. She is maintaining O2 saturation in the mid 90s on 4 L/min per nasal cannula. She is afebrile. Hemodynamically stable. White count 4.9. Hemoglobin 12.4. Platelets 148. Sodium 133. Potassium 3.0. Bicarb 35. BUN 14. Creatinine 0.64. Glucose 181. She is continued on DuoNeb inhalations, Solu-Medrol. Remains on ceftriaxone. Anticoagulated with Eliquis. She is continued on IV diuretics. Currently in a negative balance. Patient was evaluated today on 12/29/2023, on 2 L nasal cannula, in no distress, O2 sats 94%, patient is feeling better, breathing easier, nonetheless she feels a bit congested. Patient is on maximal therapy including DuoNeb, Solu-Medrol, she is also on Rocephin, anticoagulated with Eliquis. And she is receiving IV diuretics. Chest x-ray on admission showed no evidence of acute cardiopulmonary process. WBC count is 15.8 hemoglobin 14.1, sodium is low at 130 potassium is low at 3.2, BUN is 25 creatinine 0.67 bicarb is 38 Objective - Vital Signs Vital signs: Vital Signs Temp 98.0 F 12/29/23 11:30 Pulse 74 12/29/23 14:05 Resp 20 12/29/23 11:30 BP 105/54 12/29/23 11:30 Pulse Ox 94 L 12/29/23 11:44 FiO2 Intake & Output 12/28/23 12/29/23 12/29/23 18:59 06:59 18:59 Intake Total 440 480 360 Output Total 1075 200 Balance -635 280 360 Weight 66.678 kg 65 kg Intake: Intake, IV Titration 170 Amount Sodium Chloride 0.9% 1, 120 000 ml @ 10 mls/hr IV . Q24H [facility] Rx#:[id number] cefTRIAXone 2 gm In 50 Sodium Chloride 0.9% 50 ml @ 100 mls/hr IVPB Q24HR [facility] Rx#:[id number] Oral 270 480 360 Output: Urine 1075 200 Other: Voiding Method External Catheter External Catheter External Catheter # Voids 1 2 # Bowel Movements 1 - Exam GENERAL EXAM: Alert, pleasant 83-year-old female, in no distress on 2 L nasal cannula HEAD: Normocephalic. EYES: Normal reaction of pupils, equal size. NOSE: Clear with pink turbinates. THROAT: No erythema or exudates. NECK: No masses, no JVD. CHEST: No chest wall deformity. LUNGS: Wheezing on forced expiratory maneuver only CVS: S1 and S2 normal with no audible murmur, regular rhythm. ABDOMEN: No hepatosplenomegaly, normal bowel sounds, no guarding or rigidity. SKIN: No rashes CENTRAL NERVOUS SYSTEM: Alert oriented x 3 no gross focal deficit EXTREMITIES: Clubbing edema or cyanosis - Labs CBC & Chem 7: 12/29/23 09:42 12/29/23 09:42 Labs: Abnormal Lab Results - Last 24 Hours (Table) 12/28/23 12/29/23 12/29/23 Range/Units 17:16 05:56 09:42 WBC 15.8 H (3.8-10.6) k/uL Neutrophils # 13.7 H (1.3-7.7) k/uL Sodium (137-145) mmol/L Potassium (3.5-5.1) mmol/L Chloride (98-107) mmol/L Carbon Dioxide (22-30) mmol/L BUN (7-17) mg/dL Glucose (74-99) mg/dL POC Glucose (mg/dL) 145 H 138 H (70-110) mg/dL Magnesium (1.6-2.3) mg/dL 12/29/23 12/29/23 12/29/23 Range/Units 09:42 09:42 11:25 WBC (3.8-10.6) k/uL Neutrophils # (1.3-7.7) k/uL Sodium 130 L (137-145) mmol/L Potassium 3.2 L (3.5-5.1) mmol/L Chloride 84 L (98-107) mmol/L Carbon Dioxide 38 H (22-30) mmol/L BUN 25 H (7-17) mg/dL Glucose 191 H (74-99) mg/dL POC Glucose (mg/dL) 217 H (70-110) mg/dL Magnesium 1.2 L (1.6-2.3) mg/dL Microbiology - Last 24 Hours (Table) 12/27/23 07:45 Blood Culture - Preliminary Blood 12/27/23 08:00 Blood Culture - Preliminary Blood Assessment and Plan Assessment: Impression: Acute exacerbation of COPD/asthma. Acute hypoxic respiratory failure, currently on 2 L of oxygen by nasal cannula Chronic bronchial asthma/COPD maintained on Advair Acute hypoxic respiratory failure currently on oxygen 2 L/min nasal cannula Chronic atrial fibrillation Moderate mitral regurgitation with preserved LV function Diverticulosis Hypothyroidism Hypertension Hyperlipidemia Recommendation: Continue bronchodilators and steroids/methylprednisolone 60 mg IV push every 6 hours Continue antibiotics Continue Eliquis and stop diuretics Resume home meds Will continue to follow Time with Patient: Less than 30
[2023-12-29 16:18] LABS: Glucose,Whole Blood 156 mg/dL (70-110)
[2023-12-29] MEDS: BENZONATATE 100 MG CAP PO SCH (17:48)
[2023-12-29 20:29] LABS: Glucose,Whole Blood 175 mg/dL (70-110)
--- NOTE | 2023-12-30 00:29 | PN ---
PROGRESS NOTE DATE OF SERVICE: 12/29/2023 SUBJECTIVE: This 83-year-old woman was admitted with COPD acute exacerbation, improved significantly. No chest pain, no palpitations, no fever. OBJECTIVE: VITAL SIGNS: Pulse is 74, blood pressure 100/50, respirations 20. CHEST: Few scattered rhonchi and crackles. ABDOMEN: Soft. NERVOUS SYSTEM: Nonfocal. LABORATORY DATA: Sodium 1, potassium 3.2, glucose noted. ASSESSMENT: 1. Chronic obstructive pulmonary disease acute exacerbation with acute purulent tracheobronchitis. 2. Hyponatremia. 3. Hypomagnesemia. 4. Hypokalemia. 5. Asthma. 6. Atrial fibrillation. 7. Hypertension. RECOMMENDATIONS: Recommended to continue current management, continue symptomatic treatment. Continue the bronchodilators. Increase ambulation. Repeat potassium, supplement potassium. Closely follow with Pulmonary. Further recommendations to follow. MMNAHEDL / CHARISSA: [id number] /
[2023-12-30 06:12] LABS: Glucose,Whole Blood 131 mg/dL (70-110)
[2023-12-30 10:04] LABS: African American GFR (CKD) >90 (>60 ml/min/1.73 sqM); Anion Gap 7 mmol/L; Blood Urea Nitrogen 24 mg/dL (7-17); Calcium 9.2 mg/dL (8.4-10.2); Carbon Dioxide 37 mmol/L (22-30); Chloride 84 mmol/L (98-107); Glucose 154 mg/dL (74-99); Magnesium 2.2 mg/dL (1.6-2.3); Non-African American GFR(CKD) 83 (>60 ml/min/1.73 sqM); Potassium 3.9 mmol/L (3.5-5.1); Sodium 128 mmol/L (137-145)
[2023-12-30 10:51] LABS: Basophils % (A) 0 %; Eosinophils % (A) 0 %; HCT 45.6 % (34.0-46.0); HGB 14.8 gm/dL (11.4-16.0); Lymphocytes # (A) 0.8 k/uL (1.0-4.8); Lymphocytes % (A) 6 %; MCH 29.6 pg (25.0-35.0); MCHC 32.4 g/dL (31.0-37.0); MCV 91.6 fL (80.0-100.0); Mean Platelet Volume 7.9; Monocytes # (A) 0.6 k/uL (0-1.0); Monocytes % (A) 4 %; Neutrophils # (A) 12.2 k/uL (1.3-7.7); Neutrophils % (A) 88 %; Platelet Count 208 k/uL (150-450); RBC 4.98 m/uL (3.80-5.40); RDW 13.6 % (11.5-15.5); WBC 13.8 k/uL (3.8-10.6)
[2023-12-30 11:31] LABS: Glucose,Whole Blood 164 mg/dL (70-110)
[2023-12-30 12:19] VITALS: BP 123/80; RESP 22; TEMP 97.9
--- NOTE | 2023-12-30 15:58 | P.PN ---
Subjective Progress Note Date: 12/30/23 Principal diagnosis: Acute exacerbation of mild intermittent asthma This is a 83-year-old female patient known history of COPD/asthma, presenting to the emergency department with increased cough and chest tightness and wheezing and shortness of breath of several days duration. No reported chest pain. The patient has been maintained on Advair discus on outpatient basis. Chest x-ray with femoral admission showed some increase in pulm vascular markings perihilar the and upper lobe. Otherwise, there is no airspace disease or consolidation. The patient has a proBNP level of 3470. Troponins are negative. Electrolytes show a component of chronic metabolic alkalosis with a a serum bicarb of 35 and a sodium levels of 134. Potassium level is at 4.1. BUN 11 with a creatinine of 0.5. WBC count 7.2 with a hemoglobin of 3.8 and a platelet count of 160. The patient has no reported history of CHF. She has hypertension hyperlipidemia as comorbid conditions. The patient has normal coagulation profile. Troponins are negative. proBNP level is 3470. The viral screen was negative. Lactic acid level was at 1.3. EKG showing normal sinus rhythm with frequent PVCs. Previous echocardiogram from August 2023 has shown a preserved LV function with an ejection fraction of 50 to 55%. The patient has moderate mitral regurgitation, estimated pulmonary artery pressures were essentially within normal limits. Her current white cell count 7.2 with a hemoglobin 13.8 and a platelet count of 160. She was in the hospital back in September 2023 for chest pain that was labeled to be atypical. She is also noted diverticulosis The patient is seen today December 28, 2023 in follow-up in the emergency department. She is currently sitting up on a stretcher. Awake and alert in no acute distress. She is maintaining O2 saturation in the mid 90s on 4 L/min per nasal cannula. She is afebrile. Hemodynamically stable. White count 4.9. Hemoglobin 12.4. Platelets 148. Sodium 133. Potassium 3.0. Bicarb 35. BUN 14. Creatinine 0.64. Glucose 181. She is continued on DuoNeb inhalations, Solu-Medrol. Remains on ceftriaxone. Anticoagulated with Eliquis. She is continued on IV diuretics. Currently in a negative balance. Patient was evaluated today on 12/29/2023, on 2 L nasal cannula, in no distress, O2 sats 94%, patient is feeling better, breathing easier, nonetheless she feels a bit congested. Patient is on maximal therapy including DuoNeb, Solu-Medrol, she is also on Rocephin, anticoagulated with Eliquis. And she is receiving IV diuretics. Chest x-ray on admission showed no evidence of acute cardiopulmonary process. WBC count is 15.8 hemoglobin 14.1, sodium is low at 130 potassium is low at 3.2, BUN is 25 creatinine 0.67 bicarb is 38 Patient was evaluated today on 12/30/23, remains on 2 L nasal cannula, O2 sats of 94%, patient is feeling better breathing easier, may qualify for home O2, patient needs to be evaluated, in the meantime the patient remains on the same bronchodilators including DuoNeb, she is also on Solu-Medrol, and receiving diuretics. Improving for sure, discussed with her admitting physician the possibility of discharge planning and follow-up on outpatient basis Objective - Vital Signs Vital signs: Vital Signs Temp 97.9 F 12/30/23 12:00 Pulse 81 12/30/23 15:51 Resp 22 12/30/23 12:00 BP 123/80 12/30/23 12:00 Pulse Ox 94 L 12/30/23 12:00 FiO2 Intake & Output 12/29/23 12/30/23 12/30/23 18:59 06:59 18:59 Intake Total 540 610 Output Total 440 532 4445 Balance 40 -200 -490 Weight 66.1 kg Intake: Oral 540 610 Output: Urine 308 642 4986 Other: Voiding Method External Catheter External Catheter External Catheter # Voids 2 2 - Exam GENERAL EXAM: Alert, pleasant 83-year-old female, in no distress on 2 L nasal cannula HEAD: Normocephalic. EYES: Normal reaction of pupils, equal size. NOSE: Clear with pink turbinates. THROAT: No erythema or exudates. NECK: No masses, no JVD. CHEST: No chest wall deformity. LUNGS: Clear throughout no crackles rhonchi or wheezes CVS: S1 and S2 normal with no audible murmur, regular rhythm. ABDOMEN: No hepatosplenomegaly, normal bowel sounds, no guarding or rigidity. SKIN: No rashes CENTRAL NERVOUS SYSTEM: Alert oriented x 3 no gross focal deficit EXTREMITIES: No evidence of clubbing edema or cyanosis - Labs CBC & Chem 7: 12/30/23 08:48 12/30/23 08:48 Labs: Abnormal Lab Results - Last 24 Hours (Table) 12/29/23 12/29/23 12/30/23 Range/Units 16:16 20:27 06:11 WBC (3.8-10.6) k/uL Neutrophils # (1.3-7.7) k/uL Lymphocytes # (1.0-4.8) k/uL Sodium (137-145) mmol/L Chloride (98-107) mmol/L Carbon Dioxide (22-30) mmol/L BUN (7-17) mg/dL Glucose (74-99) mg/dL POC Glucose (mg/dL) 156 H 175 H 131 H (70-110) mg/dL 12/30/23 12/30/23 12/30/23 Range/Units 08:48 08:48 11:29 WBC 13.8 H (3.8-10.6) k/uL Neutrophils # 12.2 H (1.3-7.7) k/uL Lymphocytes # 0.8 L (1.0-4.8) k/uL Sodium 128 L (137-145) mmol/L Chloride 84 L (98-107) mmol/L Carbon Dioxide 37 H (22-30) mmol/L BUN 24 H (7-17) mg/dL Glucose 154 H (74-99) mg/dL POC Glucose (mg/dL) 164 H (70-110) mg/dL Microbiology - Last 24 Hours (Table) 12/27/23 07:45 Blood Culture - Preliminary Blood 12/27/23 08:00 Blood Culture - Preliminary Blood Assessment and Plan Assessment: Impression: Acute exacerbation of COPD/asthma. Acute hypoxic respiratory failure, currently on 2 L of oxygen by nasal cannula Chronic bronchial asthma/COPD maintained on Advair Acute hypoxic respiratory failure currently on oxygen 2 L/min nasal cannula Chronic atrial fibrillation Moderate mitral regurgitation with preserved LV function Diverticulosis Hypothyroidism Hypertension Hyperlipidemia Recommendation: Continue bronchodilators and steroids/physician to oral prednisone and taper on outpatient basis Patient finished full course of antibiotics, could consider stopping an tibiotics. Continue Eliquis and stop diuretics Discharge planning if consists cleared by other consultants Will continue to follow Time with Patient: Less than 30
[2023-12-30] MEDS ORDERED: predniSONE 20 MG TAB PO SCH (16:00)
[2023-12-30 16:32] VITALS: PULSE 77
== END 2023-12-30 17:02 | disposition home health service (06) | DRG 190 ==
LOC: EC 07:12 → 3SCARD 08:20
PROVIDERS: ADMIT Hospitalist; ATTEND Hospitalist
DX: J44.1 Chronic obstructive pulmonary disease with (acute) exacerbation (principal); J96.01 Acute respiratory failure with hypoxia; E87.1 Hypo-osmolality and hyponatremia; I48.20 Chronic atrial fibrillation, unspecified; J45.21 Mild intermittent asthma with (acute) exacerbation; E87.3 Alkalosis; J44.0 Chronic obstructive pulmonary disease with (acute) lower respiratory infection; Z20.822 Contact with and (suspected) exposure to COVID-19; Z79.01 Long term (current) use of anticoagulants; J20.9 Acute bronchitis, unspecified; E78.5 Hyperlipidemia, unspecified; E83.42 Hypomagnesemia; E03.9 Hypothyroidism, unspecified; I34.0 Nonrheumatic mitral (valve) insufficiency; E87.6 Hypokalemia; Z79.890 Hormone replacement therapy; I49.3 Ventricular premature depolarization; Z79.899 Other long term (current) drug therapy
CPT/HCPCS: 36415; 71045; 80048; 80053; 82803; 83036; 83605; 83735; 83880; 84484; 85025; 85610; 85730; 87040; 87636; 93005; 94640; 94760; 96361; 96365; 96366; 96368; 96375; 96376; 99291

== ENCOUNTER 2024-01-26 07:34 | Day surgery (SDC) | payer MEDICARE, BC ==
[2024-01-24 10:57] VITALS: BMI 26.5
[~2024-01-26 07:34] MED LIST: LIDOCAINE 1% (10MG/ML) FOR IV START INTRADERMA PRN; TETRACAINE 0.5% OPHTH (PF) DROPS 4 ML BTL OP PRN
[2024-01-26 08:09] VITALS: TEMP 96.9
[2024-01-26] MEDS: LACTATED RINGERS 1,000 ML IV SCH (08:13)
[2024-01-26] MEDS: IV FLUID CONTINUATION 1,000 ML IV ONE (08:13)
[2024-01-26] MEDS: CYCLOPENTOLATE 1% OPHTH SOLN 2 ML BTL OP PRN (08:20)
[2024-01-26] MEDS: PHENYLEPHRINE 2.5% OPHTH DRP 2ML OP PRN (08:23)
[2024-01-26 08:32] LABS: Glucose,Whole Blood 80 mg/dL (70-110)
[2024-01-26] MEDS ORDERED: PROPOFOL 10 MG/ML 20 ML VIAL IV ONE (09:10)
[2024-01-26] MEDS ORDERED: MIDAZOLAM 2 MG/2 ML VIAL ONE (09:10)
[2024-01-26] MEDS ORDERED: LIDOCAINE 1% INJ 10MG/ML (20 ML MDV) SQ STA (09:18)
[2024-01-26] MEDS ORDERED: BUPIVACAINE (PF) 0.5% 30 ML VIAL MISCELLANE STA (09:23)
[2024-01-26] MEDS ORDERED: HYALURONIDASE, HUMAN RECOMB 150 UNIT/ML 1 ML VIAL SQ STA (09:25)
[2024-01-26] MEDS: BUPIVACAINE (PF) 0.5% 4.5 ML, HYALURONIDASE, HUMAN RECOMB 150 UNIT, LIDOCAINE 2% (PF) 9... IO PRN (09:52)
[2024-01-26] MEDS: EPINEPHrine (PF) 0.3 ML in BALANCED SALT IRRIG SOLN COMB2 500 ML IRRIGATION ONE (10:08)
[2024-01-26] MEDS: TIMOLOL 0.5% OPHTH DROPS 5 ML BTL OP PRN (10:09)
[2024-01-26] MEDS: MOXIFLOXACIN HCL 0.5% DROPS 3 ML BTL OP PRN (10:09)
[2024-01-26] MEDS: HYALURONATE SODIUM INTRAOCULAR 1 EACH SYRINGE (12MG/ML) INTRAOCULA ONE (10:10)
[2024-01-26] MEDS: BALANCED SALT IRRIG SOLN COMB2 15 ML IRRIG.SOLN INTRAOCULA ONE (10:11)
--- NOTE | 2024-01-26 10:21 | P.OP ---
Date of Procedure: 01/26/24 Preoperative Diagnosis: NS & CS & PSC Postoperative Diagnosis: same Procedure(s) Performed: PIOL< OS Implants: MX60E 10.00 Anesthesia: regional Surgeon: Del Danielle Pathology: none sent Condition: stable Disposition: same day Indications for Procedure: blurry vision Operative Findings: no complications
[2024-01-26 10:51] VITALS: RESP 17
[2024-01-26 11:01] VITALS: BP 131/75; PULSE 71
--- NOTE | 2024-01-26 23:39 | OP ---
OPERATIVE REPORT DATE OF SERVICE : 01/26/2024 PREOPERATIVE DIAGNOSES: Nuclear sclerosis, cortical sclerosis, posterior subcapsular cataract. POSTOPERATIVE DIAGNOSES: Nuclear sclerosis, cortical sclerosis, posterior subcapsular cataract. OPERATION: Phacoemulsification of cataract and interocular lens implant of the left eye. ANESTHESIA: Retrobulbar. ESTIMATED BLOOD LOSS: Zero. SPECIMEN TAKEN: None. NARRATIVE: After obtaining the appropriate consent, the patient was brought to the operating room where the patient was placed under cardiac monitoring and prepped and draped in the usual sterile manner. At the 5 o'clock position, a 15-degree super sharp blade was used to create a paracentesis followed by instillation of 1% Xylocaine MPF 50:50 mix with BSS into the anterior chamber. This was followed by Amvisc viscoelastic to stabilize the anterior chamber. At the 3 o'clock position a self-sealing corneal flap incision was created using 2.8 mm jim keratome. A cystotome was used to initiate a continuous tear capsulorrhexis which was completed with the Utrata forceps. A Binkhorst cannula was used to hydrodissect the lens nucleus followed by hydrodelineation. Phacoemulsification of the lens was performed utilizing phacochop in 14.42 seconds at 14% power. The remaining cortical material was removed using the irrigation aspiration mode followed by additional 1% Xylocaine MPF into the anterior chamber followed by viscoelastic to stabilize the capsular bag. A [employer] MX60E 10.0 diopters posterior chamber lens was placed into the capsular bag without difficulty. The remaining viscoelastic material was removed from the anterior chamber with the irrigation/aspiration. Balanced salt solution was used to normalize the intraocular pressure. The incision was checked for watertight integrity. The patient then received 2 drops of 0.5% timolol followed by 2 drops Vigamox, was lightly patched and shielded in the usual manner. There were no complications from the procedure. The patient tolerated the procedure well and was returned to recovery in good condition. MMODL / IJN: [id number] /
== END 2024-01-26 11:24 | disposition home or self-care (01) ==
LOC: OR 07:34
PROVIDERS: ATTEND Ophthalmology
DX: H25.12 Age-related nuclear cataract, left eye (principal); H25.012 Cortical age-related cataract, left eye; H25.042 Posterior subcapsular polar age-related cataract, left eye; I10 Essential (primary) hypertension; I48.91 Unspecified atrial fibrillation; J45.909 Unspecified asthma, uncomplicated; F41.9 Anxiety disorder, unspecified; F32.A Depression, unspecified; Z79.01 Long term (current) use of anticoagulants; Z79.899 Other long term (current) drug therapy
CPT/HCPCS: 66984; C1780; J2250; J3470; J2001; J0171; J2704

== ENCOUNTER 2024-03-29 08:05 | Day surgery (SDC) | payer MEDICARE, BC ==
[2024-03-29 09:01] VITALS: TEMP 97.2
[2024-03-29] MEDS: CYCLOPENTOLATE 1% OPHTH SOLN 2 ML BTL OP PRN (09:03)
[2024-03-29] MEDS: PHENYLEPHRINE 2.5% OPHTH DRP 2ML OP PRN (09:08)
[2024-03-29] MEDS: LACTATED RINGERS 1,000 ML IV SCH (09:14)
[2024-03-29] MEDS: IV FLUID CONTINUATION 1,000 ML IV ONE (09:16)
[2024-03-29] MEDS ORDERED: PROPOFOL 10 MG/ML 20 ML VIAL IV ONE (09:39)
[2024-03-29] MEDS ORDERED: fentaNYL (PF) 50 MCG/ML 2 ML AMP ONE (09:39)
[2024-03-29] MEDS ORDERED: MIDAZOLAM 2 MG/2 ML VIAL ONE (09:39)
[2024-03-29] MEDS: BUPIVACAINE (PF) 0.5% 4.5 ML, HYALURONIDASE, HUMAN RECOMB 150 UNIT, LIDOCAINE 2% (PF) 9... IO PRN (09:52)
[2024-03-29] MEDS: EPINEPHrine (PF) 0.3 ML in BALANCED SALT IRRIG SOLN COMB2 500 ML IRRIGATION ONE (10:01)
[2024-03-29] MEDS: HYALURONATE SODIUM INTRAOCULAR 1 EACH SYRINGE (12MG/ML) INTRAOCULA ONE (10:05)
[2024-03-29] MEDS: BALANCED SALT IRRIG SOLN COMB2 15 ML IRRIG.SOLN INTRAOCULA ONE (10:05)
[2024-03-29] MEDS: MOXIFLOXACIN HCL 0.5% DROPS 3 ML BTL OP PRN (10:06)
[2024-03-29] MEDS: TIMOLOL 0.5% OPHTH DROPS 5 ML BTL OP PRN (10:06)
--- NOTE | 2024-03-29 10:21 | P.OP ---
Date of Procedure: 03/29/24 Preoperative Diagnosis: NS & cS & PSC Postoperative Diagnosis: same Procedure(s) Performed: PIOL, OD Anesthesia: regional Surgeon: Del Danielle Pathology: none sent Condition: stable Disposition: same day Indications for Procedure: blurry vision Operative Findings: no complications
[2024-03-29 10:40] VITALS: BP 154/97; PULSE 61; RESP 16
--- NOTE | 2024-04-05 15:16 | OP ---
OPERATIVE REPORT DATE OF SERVICE : 03/29/2024 PREOPERATIVE DIAGNOSIS: Nuclear sclerosis, right eye. POSTOPERATIVE DIAGNOSIS: Nuclear sclerosis, right eye. OPERATION: Phacoemulsification of cataract and intraocular lens implant of the right eye. ANESTHESIA: Retrobulbar anesthesia. ESTIMATED BLOOD LOSS: Zero. SPECIMEN TAKEN: None. NARRATIVE: After obtaining the appropriate consent, the patient was brought to the operating room where the patient was placed under cardiac monitoring and prepped and draped in the usual sterile manner. At the 11 o'clock position, a 15-degree super sharp blade was used to create a paracentesis followed by instillation of 1% Xylocaine MPF 50:50 mix with BSS into the anterior chamber. This was followed by Amvisc viscoelastic to stabilize the anterior chamber. At the 9 o'clock position a self-sealing corneal flap incision was created using 2.8 mm jim keratome. A cystotome was used to initiate a continuous tear capsulorrhexis which was completed with the Utrata forceps. A Binkhorst cannula was used to hydrodissect the lens nucleus followed by hydrodelineation. Phacoemulsification of the lens was performed utilizing phacochop in 14.55 seconds at 12.8% power. The remaining cortical material was removed using the irrigation aspiration mode followed by additional 1% Xylocaine MPF into the anterior chamber followed by viscoelastic to stabilize the capsular bag. A [employer] Lomb MX60E 12.0 diopters posterior chamber lens was placed into the capsular bag without difficulty. The remaining viscoelastic material was removed from the anterior chamber with the irrigation/aspiration. Balanced salt solution was used to normalize the intraocular pressure. The incision was checked for watertight integrity. The patient then received 2 drops of 0.5% timolol followed by 2 drops Vigamox, was lightly patched and shielded in the usual manner. There were no complications from the procedure. The patient tolerated the procedure well and was returned to recovery in good condition. MMODL / IJN: [id number] /
== END 2024-03-29 11:00 | disposition home or self-care (01) ==
LOC: OR 08:05
PROVIDERS: ATTEND Ophthalmology
DX: H25.11 Age-related nuclear cataract, right eye (principal); H25.011 Cortical age-related cataract, right eye; I48.91 Unspecified atrial fibrillation; I10 Essential (primary) hypertension; J45.909 Unspecified asthma, uncomplicated; E07.9 Disorder of thyroid, unspecified; Z79.890 Hormone replacement therapy; Z79.01 Long term (current) use of anticoagulants; Z79.899 Other long term (current) drug therapy; Z98.890 Other specified postprocedural states; Z90.49 Acquired absence of other specified parts of digestive tract; Z98.42 Cataract extraction status, left eye

== ENCOUNTER 2024-04-25 11:09 | Emergency (ER) | payer MEDICARE, BC ==
--- NOTE | 2024-04-25 11:52 | ED ---
Nausea/Vomiting/Diarrhea HPI - General Source: patient, RN notes reviewed Mode of arrival: ambulatory Limitations: no limitations <Anila Mckay - Last Filed: 04/25/24 11:51> <Tayla Norris - Last Filed: 04/25/24 18:58> - General Chief complaint: Nausea/Vomiting/Diarrhea Stated complaint: Weakness Time Seen by Provider: 04/25/24 11:51 - History of Present Illness Initial comments: 1: 84-year-old female presented to the ER with a chief complaint of left lower quadrant abdominal pain and diarrhea. Patient reports this started last night. Does have a history of diverticulitis and reports pain feels similar. Denies any nausea or vomiting. No fevers. Patient states her blood pressure was low and she was clammy earlier today which brought her to the ER. (Anila Mckay) 74-year-old female presents emergency department chief complaint of left lower quadrant abdominal pain and diarrhea that has been present over the past approximately 24 hours. Patient has a history of diverticulitis and states that this feels similar. Patient states that she felt cool and clammy this morning where her blood pressure was checked and it was found to be hypotensive. Patient contacted her primary care provider they recommended she report to the emergency department for further evaluation. She denies fevers, chills, nausea, vomiting, hematochezia or melena. It is currently on Eliquis for A-fib (Tayla Norris) - Related Data Home Medications Medication Instructions Recorded Confirmed Divalproex [Depakote] 250 mg PO BID 12/22/17 03/27/24 Levothyroxine Sodium [Synthroid] 75 mcg PO QAM 12/22/17 03/27/24 Metoprolol Tartrate 25 mg PO BID 12/22/17 03/27/24 Zolpidem Tartrate [Ambien] 10 mg PO HS 12/22/17 03/27/24 Probiotic/Prebiotic Gummy 2 tab PO DAILY 08/24/23 03/27/24 Magnesium 250 mg PO BID 12/27/23 03/27/24 Tylenol(Uknown Dose) 1 dose PO Q6H PRN 01/24/24 03/27/24 Albuterol Inhaler [Ventolin Hfa 1 - 2 puff INHALATION Q6H PRN 03/27/24 03/27/24 Inhaler] Budesonide-Formot 160-4.5 Mcg 2 puff INHALATION BID PRN 03/27/24 03/27/24 [Symbicort 160-4.5 Mcg Inhaler] Previous Rx's Medication Instructions Recorded Apixaban [Eliquis] 2.5 mg PO BID #60 tab 08/26/23 Allergies Allergy/AdvReac Type Severity Reaction Status Date / Time No Known Allergies Allergy Verified 04/25/24 11:17 Review of Systems ROS Other: All systems not noted in ROS Statement are negative. <Anila Mckay - Last Filed: 04/25/24 11:51> ROS Other: All systems not noted in ROS Statement are negative. <Tayla Norris - Last Filed: 04/25/24 18:58> ROS Statement: Those systems with pertinent positive or pertinent negative responses have been documented in the HPI. Past Medical History Past Medical History: Atrial Fibrillation, Asthma, Chest Pain / Angina, Eye Disorder, Hypertension, Thyroid Disorder Additional Past Medical History / Comment(s): right cataracts, diverticulosis History of Any Multi-Drug Resistant Organisms: None Reported, C-DIFF Date of last positivie culture/infection: 07/2023 MDRO Source:: stool Past Surgical History: Appendectomy, Hernia Repair Additional Past Surgical History / Comment(s): laser for gallstone, colonoscopy, left eye cataract surg 01/2024 Past Anesthesia/Blood Transfusion Reactions: No Reported Reaction Additional Past Anesthesia/Blood Transfusion Reaction / Comment(s): Last blood transfusion 08/1969. No reaction. Past Psychological History: No Psychological Hx Reported Smoking Status: Never smoker Past Alcohol Use History: None Reported Past Drug Use History: None Reported - Past Family History Mother Family Medical History: CVA/TIA Father Family Medical History: Cancer Additional Family Medical History / Comment(s): Pancreas <Anila Mckay - Last Filed: 04/25/24 11:51> General Exam Limitations: no limitations <Anila Mckay - Last Filed: 04/25/24 11:51> General appearance: alert, in no apparent distress Eye exam: Present: normal appearance, PERRL, EOMI. Absent: scleral icterus, conjunctival injection, periorbital swelling Neck exam: Present: normal inspection. Absent: tenderness, meningismus, lymphadenopathy Respiratory exam: Present: normal lung sounds bilaterally. Absent: respiratory distress, wheezes, rales, rhonchi, stridor Cardiovascular Exam: Present: regular rate, normal rhythm, normal heart sounds. Absent: systolic murmur, diastolic murmur, rubs, gallop, clicks GI/Abdominal exam: Present: soft, tenderness (mild LLQ tenderness), normal bowel sounds. Absent: distended, guarding, rebound, rigid Extremities exam: Present: normal inspection, full ROM, normal capillary refill. Absent: tenderness, pedal edema, joint swelling, calf tenderness Back exam: Present: normal inspection Skin exam: Present: warm, dry, intact, normal color, pallor. Absent: rash <Tayla Norris - Last Filed: 04/25/24 18:58> - General Exam Comments Initial Comments: Visual Physical Exam Vital signs reviewed General: Well-appearing, nontoxic, no acute distress. Head: Normocephalic, atraumatic Eyes: PERRLA, EOMI ENT: Airway patent Chest: Nonlabored breathing Skin: No visual rash, normal skin tone Neuro: Alert and oriented 3 Musculoskeletal: No gross abnormalities (Anila Mckay) Course Vital Signs 04/25/24 04/25/24 04/25/24 11:14 14:39 15:50 Temperature 98.2 F 97.7 F Pulse Rate 66 76 77 Respiratory 18 18 20 Rate Blood Pressure 136/72 146/67 147/83 O2 Sat by Pulse 96 97 95 Oximetry Medical Decision Making <Anila Mckay - Last Filed: 04/25/24 11:51> - Lab Data Result diagrams: 04/25/24 11:45 04/25/24 11:45 <Tayla Norris - Last Filed: 04/25/24 18:58> - Medical Decision Making I performed the quick note portion of this chart. Electronically signed by Anila Mckay PA-C (Anila Mckay) Was pt. sent in by a medical professional or institution ([facility], [facility], urgent care, hospital, or shelter...) When possible be specific @ -Was advised by primary care provider to report to the emergency department for further evaluation of abdominal pain and possible dehydration due to diarrh ea Did you speak to anyone other than the patient for history (EMS, parent, family, police, friend...)? What history was obtained from this source @ -No Did you review nursing and triage notes (agree or disagree)? Why? @ -I reviewed and agree with nursing and triage notes Were old charts reviewed (outside hosp., previous admission, EMS record, old EKG, old radiological studies, urgent care reports/EKG's, shelter records)? Report findings @ -No old charts were reviewed Differential Diagnosis (chest pain, altered mental status, abdominal pain women, abdominal pain men, vaginal bleeding, weakness, fever, dyspnea, syncope, headache, dizziness, GI bleed, back pain, seizure, CVA, palpatations, mental health, musculoskeletal)? @ -Differential Abdominal Pain Women: Appendicitis, Cholecystitis, diverticulosis, ischemic bowel, pancreatitis, hepatitis, UTI, gastroenteritis, AAA, incarcerated hernia, bowel obstruction, constipation, inflammatory bowel, hepatitis, peptic ulcer disease, splenic infarction, perforated viscus, vulvitis, ovarian torsion, PID, kidney stone, placenta abruption, this is not meant to be an all-inclusive list EKG interpreted by me (3pts min.). @ -None X-rays interpreted by me (1pt min.). @ -None done CT interpreted by me (1pt min.). @ -CT of the abdomen pelvis is negative for acute process U/S interpreted by me (1pt. min.). @ -None done What testing was considered but not performed or refused? (CT, X-rays, U/S, labs)? Why? @ -None What meds were considered but not given or refused? Why? @ -None Did you discuss the management of the patient with other professionals (professionals i.e. , PA, [facility], lab, RT, psych nurse, case management social worker, electronics teacher, teacher, correctional program officer, rehabilitation caseworker)? Give summary @ -No Was smoking cessation discussed for >3mins.? @ -No Was critical care preformed (if so, how long)? @ -No Were there social determinants of health that impacted care today? How? (Homelessness, low income, unemployed, alcoholism, drug addiction, transportation, low edu. Level, literacy, decrease access to med. care, correction, rehab)? @ -No Was there de-escalation of care discussed even if they declined (Discuss DNR or withdrawal of care, Hospice)? DNR status @ -No What co-morbidities impacted this encounter? (DM, HTN, Smoking, COPD, CAD, Cancer, CVA, ARF, Chemo, Hep., AIDS, mental health diagnosis, sleep apnea, morbid obesity)? @ -None Was patient admitted / discharged? Hospital course, mention meds given and route, prescriptions, significant lab abnormalities, going to OR and other pertinent info. @ -Discharged. 84-year-old female with diarrhea and abdominal pain. Patient is originally evaluated as a quick note where laboratory studies were ordered. On my evaluation of the patient she is resting comfortably no signs of acute distress. Vitals are stable. Patient has mild left lower quadrant abdominal tenderness to palpation with no signs of rebound tenderness or rigidity. She was offered pain medication however she is declined this time saying that the pain is very minimal. CBC unremakrable, CMP reveals mild hyponatremia 133, chloride 95, magnesium of 1.2, troponin nonelevated less than 0.012. Patient is provided with a liter fluid bolus and magnesium resupplementation. CT imaging unremarkable for acute abdominal process. Recommend that patient continue oral magnesium supplementation outpatient and follow-up with her primary care provider for laboratory redraw. All questions answered at bedside and strict return parameters paloma the patient she is verbalized understanding. Case discus sed with Dr. Gautam Undiagnosed new problem with uncertain prognosis? @ -No Drug Therapy requiring intensive monitoring for toxicity (Heparin, Nitro, Insulin, Cardizem)? @ -No Were any procedures done? @ -No Diagnosis/symptom? @ -Left lower quadrant abdominal pain, diarrhea, hypomagnesemia Acute, or Chronic, or Acute on Chronic? @ -Acute Uncomplicated (without systemic symptoms) or Complicated (systemic symptoms)? @ -uncomplicated Side effects of treatment? @ -No Exacerbation, Progression, or Severe Exacerbation? @ -No Poses a threat to life or bodily function? How? (Chest pain, [place], [place], pneumonia, PE, COPD, DKA, ARF, appy, cholecystitis, CVA, Diverticulitis, Homicidal, Suicidal, threat to staff... and all critical care pts) @ -No (Stieler,Tayla) - Lab Data Lab Results 04/25/24 04/25/24 04/25/24 Range/Units 11:45 11:45 11:45 WBC 6.3 (3.8-10.6) k/uL RBC 4.88 (3.80-5.40) m/uL Hgb 14.9 (11.4-16.0) gm/dL Hct 44.7 (34.0-46.0) % MCV 91.7 (80.0-100.0) fL MCH 30.6 (25.0-35.0) pg MCHC 33.4 (31.0-37.0) g/dL RDW 13.6 (11.5-15.5) % Plt Count 229 (150-450) k/uL MPV 7.2 Neutrophils % 60 % Lymphocytes % 27 % Monocytes % 9 % Eosinophils % 2 % Basophils % 0 % Neutrophils # 3.8 (1.3-7.7) k/uL Lymphocytes # 1.7 (1.0-4.8) k/uL Monocytes # 0.5 (0-1.0) k/uL Eosinophils # 0.1 (0-0.7) k/uL Basophils # 0.0 (0-0.2) k/uL Sodium 133 L (137-145) mmol/L Potassium 3.8 (3.5-5.1) mmol/L Chloride 95 L (98-107) mmol/L Carbon Dioxide 30 (22-30) mmol/L Anion Gap 8 mmol/L BUN 16 (7-17) mg/dL Creatinine 0.66 (0.52-1.04) mg/dL Est GFR (CKD-EPI)AfAm >90 (>60 ml/min/1.73 sqM) Est GFR (CKD-EPI)NonAf 81 (>60 ml/min/1.73 sqM) Glucose 86 (74-99) mg/dL Calcium 10.8 H (8.4-10.2) mg/dL Magnesium 1.2 L (1.6-2.3) mg/dL Total Bilirubin 1.3 (0.2-1.3) mg/dL AST 26 (14-36) U/L ALT 10 (4-34) U/L Alkaline Phosphatase 66 (38-126) U/L Troponin I <0.012 (0.000-0.034) ng/mL Total Protein 7.5 (6.3-8.2) g/dL Albumin 4.7 (3.5-5.0) g/dL Disposition <Anila Mckay - Last Filed: 04/25/24 11:51> Is patient prescribed a controlled substance at d/c from ED?: No Time of Disposition: 14:36 <Tayla Norris - Last Filed: 04/25/24 18:58> Clinical Impression: Diarrhea, Lower abdominal pain, Hypomagnesemia Disposition: HOME SELF-CARE Condition: Good Instructions (If sedation given, give patient instructions): Acute Diarrhea (ED) Additional Instructions: Return to the emergency department for any new or worsening symptoms. Recommend that you continue magnesium supplementation at home. Follow-up with your primary care provider within the next week for further evaluation. Increase oral hydration. Referrals: Noel Angulo MD [Primary Care Provider] - 1-2 days
[2024-04-25 11:59] LABS: Basophils % (A) 0 %; Eosinophils # (A) 0.1 k/uL (0-0.7); Eosinophils % (A) 2 %; HCT 44.7 % (34.0-46.0); HGB 14.9 gm/dL (11.4-16.0); Lymphocytes # (A) 1.7 k/uL (1.0-4.8); Lymphocytes % (A) 27 %; MCH 30.6 pg (25.0-35.0); MCHC 33.4 g/dL (31.0-37.0); MCV 91.7 fL (80.0-100.0); Mean Platelet Volume 7.2; Monocytes # (A) 0.5 k/uL (0-1.0); Monocytes % (A) 9 %; Neutrophils # (A) 3.8 k/uL (1.3-7.7); Neutrophils % (A) 60 %; Platelet Count 229 k/uL (150-450); RBC 4.88 m/uL (3.80-5.40); RDW 13.6 % (11.5-15.5); WBC 6.3 k/uL (3.8-10.6)
[2024-04-25 12:09] LABS: ALT 10 U/L (4-34); AST 26 U/L (14-36); African American GFR (CKD) >90 (>60 ml/min/1.73 sqM); Albumin 4.7 g/dL (3.5-5.0); Alkaline Phosphatase 66 U/L (38-126); Blood Urea Nitrogen 16 mg/dL (7-17); Calcium 10.8 mg/dL (8.4-10.2); Carbon Dioxide 30 mmol/L (22-30); Chloride 95 mmol/L (98-107); Glucose 86 mg/dL (74-99); Magnesium 1.2 mg/dL (1.6-2.3); Non-African American GFR(CKD) 81 (>60 ml/min/1.73 sqM); Total Bilirubin 1.3 mg/dL (0.2-1.3); Total Protein 7.5 g/dL (6.3-8.2)
[2024-04-25 12:26] LABS: Anion Gap 8 mmol/L; Potassium 3.8 mmol/L (3.5-5.1); Sodium 133 mmol/L (137-145)
--- NOTE | 2024-04-25 14:25 | CT ---
EXAMINATION TYPE: CT abdomen pelvis w con DATE OF EXAM: 04/25/2024 COMPARISON: 08/24/2023 all Valves HISTORY: LLQ pain, history of diverticulitis CT DLP: 584.1 mGycm CONTRAST: CT scan of the abdomen and pelvis is performed without Oral Contrast and with IV Contrast, patient in jected with 100 mL of Isovue 300. FINDINGS: LUNG BASES-: No visible nodule. No infiltrate. There is evidence of cardiomegaly. LIVER/GB: Gallbladder surgically absent. No space occupying hepatic lesion. Biliary tree is of normal caliber. PANCREAS: No inflammation. No distinct mass. SPLEEN: No splenic enlargement. No lesion seen. ADRENALS: No nodule. No thickening. KIDNEYS/BLADDER: No hydronephrosis. No nephrolithiasis. Renal cystic changes noted mild in degree. Urinary bladder grossly unremarkable. BOWEL: Normal appendix. Normal bowel caliber. No inflammation. Sigmoid diverticulosis without diver ticulitis. GENITAL ORGANS: No gross abnormality. LYMPH NODES: No greater than 1cm abdominal or pelvic lymph nodes are appreciated. AORTA: No significant abnormality. OSSEOUS STRUCTURES: No significant abnormality is seen. OTHER: No significant additional abnormality is seen. IMPRESSION: 1. No acute process seen at this time. [facility], , 04/25/2024 2:23 PM
[2024-04-25] MEDS: SODIUM CHLORIDE 0.9% 1,000 ML IV STA (14:35)
[2024-04-25] MEDS: MAGNESIUM OXIDE 400 MG TAB PO STA (14:35)
[2024-04-25 14:40] VITALS: TEMP 97.7
[2024-04-25 15:50] VITALS: BP 147/83; PULSE 77; RESP 20
== END 2024-04-25 15:51 | disposition home or self-care (01) ==
LOC: EC 11:09
DX: R53.1 Weakness
CPT/HCPCS: 36415; 74177; 80053; 83735; 84484; 85025; 93005; 96360; 99285

== ENCOUNTER 2024-05-17 15:37 | Emergency (ER) | payer MEDICARE, BC ==
[2024-05-17 15:58] VITALS: RESP 16; TEMP 98.1
[2024-05-17 16:14] VITALS: PULSE 67
[2024-05-17] MEDS: SODIUM CHLORIDE 0.9% 1,000 ML IV STA (16:35)
--- NOTE | 2024-05-17 16:48 | ED ---
Weakness HPI - General Chief complaint: Weakness Stated complaint: Weakness Time Seen by Provider: 05/17/24 15:40 Source: patient, EMS, RN notes reviewed, old records reviewed Mode of arrival: EMS Limitations: no limitations - History of Present Illness Initial comments: This is an 84-year-old female to the ER for evaluation today. Patient presents today for evaluation regards to weakness secondary to diarrhea. Family came upon the patient sitting on the kitchen floor unable to get up in the called EMS who brought patient to the ER MD Complaint: generalized weakness -: days(s) Location: generalized Severity: severe Severity scale (1-10): 8 Consistency: constant Improves with: none Worsens with: none Context: history of similar Associated Symptoms: denies other symptoms - Related Data Home Medications Medication Instructions Recorded Confirmed Divalproex [Depakote] 250 mg PO BID 12/22/17 05/17/24 Levothyroxine Sodium [Synthroid] 75 mcg PO QAM 12/22/17 05/17/24 Metoprolol Tartrate 25 mg PO BID 12/22/17 05/17/24 Zolpidem Tartrate [Ambien] 10 mg PO HS 12/22/17 05/17/24 Probiotic/Prebiotic Gummy 2 tab PO DAILY 08/24/23 05/17/24 Magnesium 250 mg PO BID 12/27/23 05/17/24 Previous Rx's Medication Instructions Recorded Apixaban [Eliquis] 2.5 mg PO BID #60 tab 08/26/23 Allergies Allergy/AdvReac Type Severity Reaction Status Date / Time No Known Allergies Allergy Verified 04/25/24 11:17 Review of Systems ROS Statement: Those systems with pertinent positive or pertinent negative responses have been documented in the HPI. ROS Other: All systems not noted in ROS Statement are negative. Past Medical History Past Medical History: Atrial Fibrillation, Asthma, Chest Pain / Angina, Eye Disorder, Hypertension, Thyroid Disorder Additional Past Medical History / Comment(s): right cataracts, diverticulosis History of Any Multi-Drug Resistant Organisms: None Reported, C-DIFF Date of last positivie culture/infection: 07/2023 MDRO Source:: stool Past Surgical History: Appendectomy, Hernia Repair Additional Past Surgical History / Comment(s): laser for gallstone, colonoscopy, left eye cataract surg 01/2024 Past Anesthesia/Blood Transfusion Reactions: No Reported Reaction Additional Past Anesthesia/Blood Transfusion Reaction / Comment(s): Last blood transfusion 08/1969. No reaction. Past Psychological History: No Psychological Hx Reported Smoking Status: Never smoker Past Alcohol Use History: None Reported Past Drug Use History: None Reported - Past Family History Mother Family Medical History: CVA/TIA Father Family Medical History: Cancer Additional Family Medical History / Comment(s): Pancreas General Exam Limitations: no limitations General appearance: alert, in no apparent distress Head exam: Present: atraumatic, normocephalic, normal inspection Eye exam: Present: normal appearance, PERRL, EOMI. Absent: scleral icterus, conjunctival injection, periorbital swelling ENT exam: Present: normal exam, mucous membranes moist Neck exam: Present: normal inspection. Absent: tenderness, meningismus, lymphadenopathy Respiratory exam: Present: normal lung sounds bilaterally. Absent: respiratory distress, wheezes, rales, rhonchi, stridor Cardiovascular Exam: Present: regular rate, normal rhythm, normal heart sounds. Absent: systolic murmur, diastolic murmur, rubs, gallop, clicks GI/Abdominal exam: Present: soft, normal bowel sounds. Absent: distended, tenderness, guarding, rebound, rigid Extremities exam: Present: normal inspection, full ROM, normal capillary refill. Absent: tenderness, pedal edema, joint swelling, calf tenderness Back exam: Present: normal inspection Neurological exam: Present: alert, oriented X3, CN II-XII intact Psychiatric exam: Present: normal affect, normal mood Skin exam: Present: warm, dry, intact, normal color. Absent: rash Course Vital Signs 05/17/24 05/17/24 05/17/24 15:45 15:57 16:12 Temperature 98.1 F Pulse Rate 66 66 Pulse Rate [ 67 Pulse Oximetery ] Respiratory 16 16 Rate Blood Pressure 151/80 129/68 O2 Sat by Pulse 96 98 Oximetry 05/17/24 05/17/24 17:57 18:45 Temperature Pulse Rate 67 67 Pulse Rate [ Pulse Oximetery ] Respiratory 16 16 Rate Blood Pressure 130/76 134/74 O2 Sat by Pulse 98 97 Oximetry - Reevaluation(s) Reevaluation #1: 05/17/24 18:41 Medical records reviewed Reevaluation #2: 05/17/24 18:41 Patient symptoms unchanged Reevaluation #3: 05/17/24 18:42 Patient informed of results and questions answered Reevaluation #4: Was pt. sent in by a medical professional or institution (SASCHA Cabalelro, CORPORATE SECURITIES RESEARCH ANALYST, urgent care, hospital, or prison...) When possible be specific @ -no Did you speak to anyone other than the patient for history (EMS, parent, family, police, friend...)? What history was obtained from this source @ -no Did you review nursing and triage notes (agree or disagree)? Why? @ -agree Are old charts reviewed (outside hosp., previous admission, EMS record, old EKG, old radiological studies, urgent care reports/EKG's, prison records)? Report findings @ -yes Differential Diagnosis (chest pain, altered mental status, abdominal pain women, abdominal pain men, vaginal bleeding, weakness, fever, dyspnea, syncope, headache, dizziness, GI bleed, back pain, seizure, CVA, palpatations, mental health, musculoskeletal)? @ -prior EKG interpreted by me (3pts min.). @ -no X-rays interpreted by me (1pt min.). @ -no CT interpreted by me (1pt min.). @ -no U/S interpreted by me (1pt. min.). @ -no What testing was considered but not performed or refused? (CT, X-rays, U/S, labs)? Why? @ -none What meds were considered but not given or refused? Why? @ -none Did you discuss the management of the patient with other professionals (professionals i.e. SASCHA Caballero, CORPORATE SECURITIES RESEARCH ANALYST, lab, RT, psych nurse, social media community manager, grit removal operator, teacher, staff air tactical officer, gearcase assembler)? Give summary @ -no Was smoking cessation discussed for >3mins.? @ -no Was critical care preformed (if so, how long)? @ -no Were there social determinants of health that impacted care today? How? (Homelessness, low income, unemployed, alcoholism, drug addiction, transportation, low edu. Level, literacy, decrease access to med. care, fdc, rehab)? @ -none Was there de-escalation of care discussed even if they declined (Discuss DNR or withdrawal of care, Hospice)? DNR status @ -no What co-morbidities impacted this encounter? (DM, HTN, Smoking, COPD, CAD, Cancer, CVA, ARF, Chemo, Hep., AIDS, mental health diagnosis, sleep apnea, morbid obesity)? @ -none Was patient admitted / discharged? Hospital course, mention meds given and route, prescriptions, significant lab abnormalities, going to OR and other pertinent info. @ - 84 female with significant weakness found here in the ER and brought to the ER for evaluation. No acute cause of symptoms patient can be discharged home Discharge Undiagnosed new problem with uncertain prognosis? @ -no Drug Therapy requiring intensive monitoring for toxicity (Heparin, Nitro, Insulin, Cardizem)? @ -no Were any procedures done? @ -no Diagnosis/symptom? @ -Weakness Acute, or Chronic, or Acute on Chronic? @ -Acute Uncomplicated (without systemic symptoms) or Complicated (systemic symptoms)? @ -Complicated Side effects of treatment? @ -no Exacerbation, Progression, or Severe Exacerbation? @ -exacerbation Poses a threat to life or bodily function? How? (Chest pain, USA, IA, pneumonia, PE, COPD, DKA, ARF, appy, cholecystitis, CVA, Diverticulitis, Homicidal, Suicidal, threat to staff... and all critical care pts) @ -yes extremes of age Reevaluation #5: Differential Weakness: Hypoglycemia, shock, sepsis, hyponatremia, anemia, infection, IA, ETOH, adverse medicine reaction, overdose, stroke, this is not meant to be an all-inclusive list. Medical Decision Making - Medical Decision Making 84 female with significant weakness found here in the ER and brought to the ER for evaluation. No acute cause of symptoms patient can be discharged home - Lab Data Result diagrams: 05/17/24 16:30 05/17/24 16:30 Lab Results 05/17/24 05/17/24 05/17/24 Range/Units 16:30 16:30 16:30 WBC 6.2 (3.8-10.6) k/uL RBC 5.12 (3.80-5.40) m/uL Hgb 15.7 (11.4-16.0) gm/dL Hct 48.0 H (34.0-46.0) % MCV 93.9 (80.0-100.0) fL MCH 30.7 (25.0-35.0) pg MCHC 32.7 (31.0-37.0) g/dL RDW 13.5 (11.5-15.5) % Plt Count 187 (150-450) k/uL MPV 7.5 Neutrophils % 57 % Lymphocytes % 29 % Monocytes % 9 % Eosinophils % 2 % Basophils % 0 % Neutrophils # 3.6 (1.3-7.7) k/uL Lymphocytes # 1.8 (1.0-4.8) k/uL Monocytes # 0.6 (0-1.0) k/uL Eosinophils # 0.1 (0-0.7) k/uL Basophils # 0.0 (0-0.2) k/uL PT 11.1 (10.0-12.5) sec INR 1.0 (<1.2) APTT 23.7 (22.0-30.0) sec Sodium 133 L (137-145) mmol/L Potassium 3.8 (3.5-5.1) mmol/L Chloride 95 L (98-107) mmol/L Carbon Dioxide 33 H (22-30) mmol/L Anion Gap 5 mmol/L BUN 13 (7-17) mg/dL Creatinine 0.72 (0.52-1.04) mg/dL Est GFR (CKD-EPI)AfAm 90 (>60 ml/min/1.73 sqM) Est GFR (CKD-EPI)NonAf 78 (>60 ml/min/1.73 sqM) Glucose 98 (74-99) mg/dL Plasma Lactic Acid Andrew (0.7-2.0) mmol/L Calcium 10.4 H (8.4-10.2) mg/dL Phosphorus 3.9 (2.5-4.5) mg/dL Magnesium 1.4 L (1.6-2.3) mg/dL Total Bilirubin 0.9 (0.2-1.3) mg/dL AST 25 (14-36) U/L ALT 9 (4-34) U/L Alkaline Phosphatase 53 (38-126) U/L Troponin I (0.000-0.034) ng/mL Total Protein 7.1 (6.3-8.2) g/dL Albumin 4.4 (3.5-5.0) g/dL TSH 2.880 (0.465-4.680) mIU/L 05/17/24 05/17/24 Range/Units 16:30 16:30 WBC (3.8-10.6) k/uL RBC (3.80-5.40) m/uL Hgb (11.4-16.0) gm/dL Hct (34.0-46.0) % MCV (80.0-100.0) fL MCH (25.0-35.0) pg MCHC (31.0-37.0) g/dL RDW (11.5-15.5) % Plt Count (150-450) k/uL MPV Neutrophils % % Lymphocytes % % Monocytes % % Eosinophils % % Basophils % % Neutrophils # (1.3-7.7) k/uL Lymphocytes # (1.0-4.8) k/uL Monocytes # (0-1.0) k/uL Eosinophils # (0-0.7) k/uL Basophils # (0-0.2) k/uL PT (10.0-12.5) sec INR (<1.2) APTT (22.0-30.0) sec Sodium (137-145) mmol/L Potassium (3.5-5.1) mmol/L Chloride (98-107) mmol/L Carbon Dioxide (22-30) mmol/L Anion Gap mmol/L BUN (7-17) mg/dL Creatinine (0.52-1.04) mg/dL Est GFR (CKD-EPI)AfAm (>60 ml/min/1.73 sqM) Est GFR (CKD-EPI)NonAf (>60 ml/min/1.73 sqM) Glucose (74-99) mg/dL Plasma Lactic Acid Andrew 1.0 (0.7-2.0) mmol/L Calcium (8.4-10.2) mg/dL Phosphorus (2.5-4.5) mg/dL Magnesium (1.6-2.3) mg/dL Total Bilirubin (0.2-1.3) mg/dL AST (14-36) U/L ALT (4-34) U/L Alkaline Phosphatase (38-126) U/L Troponin I <0.012 (0.000-0.034) ng/mL Total Protein (6.3-8.2) g/dL Albumin (3.5-5.0) g/dL TSH (0.465-4.680) mIU/L Disposition Clinical Impression: Dehydration, Diarrhea, Hypomagnesemia, Weakness Disposition: HOME SELF-CARE Condition: Good Instructions (If sedation given, give patient instructions): Weakness (ED) Is patient prescribed a controlled substance at d/c from ED?: No Referrals: Noel Angulo MD [Primary Care Provider] - 1-2 days Time of Disposition: 17:25
[2024-05-17 16:54] LABS: Basophils % (A) 0 %; Eosinophils # (A) 0.1 k/uL (0-0.7); Eosinophils % (A) 2 %; HGB 15.7 gm/dL (11.4-16.0); Lymphocytes # (A) 1.8 k/uL (1.0-4.8); Lymphocytes % (A) 29 %; MCH 30.7 pg (25.0-35.0); MCHC 32.7 g/dL (31.0-37.0); MCV 93.9 fL (80.0-100.0); Mean Platelet Volume 7.5; Monocytes # (A) 0.6 k/uL (0-1.0); Monocytes % (A) 9 %; Neutrophils # (A) 3.6 k/uL (1.3-7.7); Neutrophils % (A) 57 %; Platelet Count 187 k/uL (150-450); RBC 5.12 m/uL (3.80-5.40); RDW 13.5 % (11.5-15.5); WBC 6.2 k/uL (3.8-10.6)
[2024-05-17 16:58] LABS: ALT 9 U/L (4-34); AST 25 U/L (14-36); African American GFR (CKD) 90 (>60 ml/min/1.73 sqM); Albumin 4.4 g/dL (3.5-5.0); Alkaline Phosphatase 53 U/L (38-126); Anion Gap 5 mmol/L; Blood Urea Nitrogen 13 mg/dL (7-17); Calcium 10.4 mg/dL (8.4-10.2); Carbon Dioxide 33 mmol/L (22-30); Chloride 95 mmol/L (98-107); Glucose 98 mg/dL (74-99); Magnesium 1.4 mg/dL (1.6-2.3); Non-African American GFR(CKD) 78 (>60 ml/min/1.73 sqM); Phosphorus 3.9 mg/dL (2.5-4.5); Potassium 3.8 mmol/L (3.5-5.1); Sodium 133 mmol/L (137-145); Total Bilirubin 0.9 mg/dL (0.2-1.3); Total Protein 7.1 g/dL (6.3-8.2)
[2024-05-17 16:59] LABS: Partial Thromboplastin Time 23.7 sec (22.0-30.0); Prothrombin Time 11.1 sec (10.0-12.5)
[2024-05-17] MEDS: MAGNESIUM OXIDE 400 MG TAB PO STA ×2 (18:39→18:40)
[2024-05-17] MEDS: POTASSIUM BICARBONATE/CIT AC 20 MEQ TABLET.EFF PO STA (18:40)
[2024-05-17 22:52] VITALS: BP 134/74
== END 2024-05-17 18:45 | disposition home or self-care (01) ==
LOC: EC 15:37
CPT/HCPCS: 36415; 80053; 83605; 83735; 84100; 84443; 84484; 85025; 85610; 85730; 96360; 99285

== ENCOUNTER 2024-08-25 13:00 | Inpatient (IN) | payer MEDICARE, BC ==
[2024-08-25 13:27] LABS: Basophils % (A) 0 %; Eosinophils # (A) 0.2 k/uL (0-0.7); Eosinophils % (A) 3 %; HGB 13.5 gm/dL (11.4-16.0); Lymphocytes # (A) 2.5 k/uL (1.0-4.8); Lymphocytes % (A) 35 %; MCH 30.8 pg (25.0-35.0); MCHC 32.9 g/dL (31.0-37.0); MCV 93.5 fL (80.0-100.0); Mean Platelet Volume 7.6; Monocytes # (A) 0.7 k/uL (0-1.0); Monocytes % (A) 9 %; Neutrophils # (A) 3.6 k/uL (1.3-7.7); Neutrophils % (A) 50 %; Platelet Count 181 k/uL (150-450); RBC 4.38 m/uL (3.80-5.40); RDW 13.1 % (11.5-15.5); WBC 7.2 k/uL (3.8-10.6)
--- NOTE | 2024-08-25 13:28 | ED ---
General Adult HPI - General Chief complaint: Chest Pain Stated complaint: chest pain Time Seen by Provider: 08/25/24 13:04 Source: patient, EMS, RN notes reviewed, old records reviewed - History of Present Illness Initial comments: 84-year-old female history of atrial fibrillation presenting for evaluation of right-sided chest pain. Patient states the pain began approximately 1 hour prior to arrival. She denies injury. Denies cough. Denies significant dyspnea. Paramedics gave aspirin and nitroglycerin to the patient. She denied associated diaphoresis or vomiting. Pain is improved at this time but remains constant in the right anterior chest. - Related Data Home Medications Medication Instructions Recorded Confirmed Divalproex [Depakote] 250 mg PO BID 12/22/17 05/17/24 Levothyroxine Sodium [Synthroid] 75 mcg PO QAM 12/22/17 05/17/24 Metoprolol Tartrate 25 mg PO BID 12/22/17 05/17/24 Zolpidem Tartrate [Ambien] 10 mg PO HS 12/22/17 05/17/24 Probiotic/Prebiotic Gummy 2 tab PO DAILY 08/24/23 05/17/24 Magnesium 250 mg PO BID 12/27/23 05/17/24 Previous Rx's Medication Instructions Recorded Apixaban [Eliquis] 2.5 mg PO BID #60 tab 08/26/23 Allergies Allergy/AdvReac Type Severity Reaction Status Date / Time No Known Allergies Allergy Verified 04/25/24 11:17 Review of Systems ROS Statement: Those systems with pertinent positive or pertinent negative responses have been documented in the HPI. ROS Other: All systems not noted in ROS Statement are negative. Past Medical History Past Medical History: Atrial Fibrillation, Asthma, Chest Pain / Angina, Eye Diso rder, Hypertension, Thyroid Disorder Additional Past Medical History / Comment(s): right cataracts, diverticulosis History of Any Multi-Drug Resistant Organisms: None Reported, C-DIFF Date of last positivie culture/infection: 07/2023 MDRO Source:: stool Past Surgical History: Appendectomy, Hernia Repair Additional Past Surgical History / Comment(s): laser for gallstone, colonoscopy, left eye cataract surg 01/2024 Past Anesthesia/Blood Transfusion Reactions: No Reported Reaction Additional Past Anesthesia/Blood Transfusion Reaction / Comment(s): Last blood transfusion 08/1969. No reaction. Past Psychological History: No Psychological Hx Reported Smoking Status: Never smoker Past Alcohol Use History: None Reported Past Drug Use History: None Reported - Past Family History Mother Family Medical History: CVA/TIA Father Family Medical History: Cancer Additional Family Medical History / Comment(s): Pancreas General Exam General appearance: alert, in no apparent distress Head exam: Present: atraumatic, normocephalic Eye exam: Present: normal appearance, PERRL ENT exam: Present: normal exam Neck exam: Present: normal inspection. Absent: tenderness, meningismus Respiratory exam: Present: normal lung sounds bilaterally, chest wall tenderness. Absent: respiratory distress, wheezes Cardiovascular Exam: Present: regular rate, irregular rhythm GI/Abdominal exam: Present: soft. Absent: distended, tenderness, guarding Extremities exam: Present: normal inspection, normal capillary refill Neurological exam: Present: alert, oriented X3, CN II-XII intact. Absent: motor sensory deficit Psychiatric exam: Present: normal affect, normal mood Skin exam: Present: warm, dry, intact Course Vital Signs 08/25/24 08/25/24 08/25/24 13:02 13:13 14:20 Temperature 97.1 F L 97.1 F L Pulse Rate 86 68 60 Respiratory 16 16 14 Rate Blood Pressure 131/76 131/76 119/68 O2 Sat by Pulse 95 Oximetry Medical Decision Making - Medical Decision Making Was pt. sent in by a medical professional or institution (SASCHA Caballero, RENOVATOR MACHINE OPERATOR, urgent care, hospital, or fpc...) When possible be specific @ -[No] Did you speak to anyone other than the patient for history (EMS, parent, family, police, friend...)? What history was obtained from this source @ -Paramedics report regarding symptom onset and initial vitals Did you review nursing and triage notes (agree or disagree)? Why? @ -[I reviewed and agree with nursing and triage notes] Were old charts reviewed (outside hosp., previous admission, EMS record, old EKG, old radiological studies, urgent care reports/EKG's, fpc records)? Report findings @ -[No old charts were reviewed] Differential Chest Pain: Stable Angina, Unstable Angina, STEMI, NSTEMI Aortic Dissection, Pneumothorax, Musculoskeletal, Esophageal Spasm GERD, Cholecystitis, Pancreatitis, Zoster, this is not meant to be an all-inclusive list. EKG interpreted by me (3pts min.). @ -[Atrial fibrillation with slow ventricular response rate of 51 prolonged pause. QRS duration 85, QTc [address] segment elevation, ST segment depression in the lateral precordium. X-rays interpreted by me (1pt min.). @ -Chest x-ray negative for acute cardiopulmonary findings CT interpreted by me (1pt min.). @ -[None done] U/S interpreted by me (1pt. min.). @ -[None done] What testing was considered but not performed or refused? (CT, X-rays, U/S, labs)? Why? @ -[None] What meds were considered but not given or refused? Why? @ -[None] Did you discuss the management of the patient with other professionals (professionals i.e. , PA, RENOVATOR MACHINE OPERATOR, lab, RT, psych nurse, social contact worker, legal financial specialist, teacher, veterans service officer, nurse case management)? Give summary @[facility] Was smoking cessation discussed for >3mins.? @ -[No] Was critical care preformed (if so, how long)? @ -[No] Were there social determinants of health that impacted care today? How? (Homelessness, low income, unemployed, alcoholism, drug addiction, transportation, low edu. Level, literacy, decrease access to med. care, fci, rehab)? @ -[No] Was there de-escalation of care discussed even if they declined (Discuss DNR or withdrawal of care, Hospice)? DNR status @ -[No] What co-morbidities impacted this encounter? (DM, HTN, Smoking, COPD, CAD, Cancer, CVA, ARF, Chemo, Hep., AIDS, mental health diagnosis, sleep apnea, morbid obesity)? @ -[None] Was patient admitted / discharged? Hospital course, mention meds given and route, prescriptions, significant lab abnormalities, going to OR and other pertinent info. @84-year-old female presenting with chest pain, predominantly central and right- sided, no associated symptoms. Patient is in rate controlled atrial fibrillation while in the emergency department. She has no ST segment elevation. Chest x-ray is clear. Normal CBC, CMP reveals a magnesium of 1.0 which is replaced. Patient has a negative D-dimer. She will be observed for electrolyte replacement and serial cardiac enzymes. Case discussed with Dr. Cordero who will admit. Undiagnosed new problem with uncertain prognosis? @ -[No] Drug Therapy requiring intensive monitoring for toxicity (Heparin, Nitro, Insulin, Cardizem)? @ -[No] Were any procedures done? @ -[No] Diagnosis/symptom? @Chest pain, hypomagnesemia Acute, or Chronic, or Acute on Chronic? @ -Acute Uncomplicated (without systemic symptoms) or Complicated (systemic symptoms)? @ -[default] Side effects of treatment? @ -[No] Exacerbation, Progression, or Severe Exacerbation? @ -[No] Poses a threat to life or bodily function? How? (Chest pain, USA, MD, pneumonia, PE, COPD, DKA, ARF, appy, cholecystitis, CVA, Diverticulitis, Homicidal, Suicidal, threat to staff... and all critical care pts) @ -Yes, chest pain, ACS, electrolyte abnormality - Lab Data Result diagrams: 08/25/24 13:16 08/25/24 13:16 Lab Results 08/25/24 08/25/24 08/25/24 Range/Units 13:16 13:16 13:16 WBC 7.2 (3.8-10.6) k/uL RBC 4.38 (3.80-5.40) m/uL Hgb 13.5 (11.4-16.0) gm/dL Hct 41.0 (34.0-46.0) % MCV 93.5 (80.0-100.0) fL MCH 30.8 (25.0-35.0) pg MCHC 32.9 (31.0-37.0) g/dL RDW 13.1 (11.5-15.5) % Plt Count 181 (150-450) k/uL MPV 7.6 Neutrophils % 50 % Lymphocytes % 35 % Monocytes % 9 % Eosinophils % 3 % Basophils % 0 % Neutrophils # 3.6 (1.3-7.7) k/uL Lymphocytes # 2.5 (1.0-4.8) k/uL Monocytes # 0.7 (0-1.0) k/uL Eosinophils # 0.2 (0-0.7) k/uL Basophils # 0.0 (0-0.2) k/uL PT 11.5 (10.0-12.5) sec INR 1.0 (<1.2) APTT 25.2 (22.0-30.0) sec D-Dimer 0.32 (<0.60) mg/L FEU Sodium 136 L (137-145) mmol/L Potassium 4.0 (3.5-5.1) mmol/L Chloride 97 L (98-107) mmol/L Carbon Dioxide 31 H (22-30) mmol/L Anion Gap 8 mmol/L BUN 11 (7-17) mg/dL Creatinine 0.66 (0.52-1.04) mg/dL Est GFR (CKD-EPI)AfAm >90 (>60 ml/min/1.73 sqM) Est GFR (CKD-EPI)NonAf 81 (>60 ml/min/1.73 sqM) Glucose 103 H (74-99) mg/dL Calcium 9.8 (8.4-10.2) mg/dL Magnesium 1.0 L (1.6-2.3) mg/dL Total Bilirubin 1.1 (0.2-1.3) mg/dL AST 26 (14-36) U/L ALT 9 (4-34) U/L Alkaline Phosphatase 47 (38-126) U/L Troponin I (0.000-0.034) ng/mL Total Protein 6.8 (6.3-8.2) g/dL Albumin 4.0 (3.5-5.0) g/dL 08/25/24 Range/Units 13:16 WBC (3.8-10.6) k/uL RBC (3.80-5.40) m/uL Hgb (11.4-16.0) gm/dL Hct (34.0-46.0) % MCV (80.0-100.0) fL MCH (25.0-35.0) pg MCHC (31.0-37.0) g/dL RDW (11.5-15.5) % Plt Count (150-450) k/uL MPV Neutrophils % % Lymphocytes % % Monocytes % % Eosinophils % % Basophils % % Neutrophils # (1.3-7.7) k/uL Lymphocytes # (1.0-4.8) k/uL Monocytes # (0-1.0) k/uL Eosinophils # (0-0.7) k/uL Basophils # (0-0.2) k/uL PT (10.0-12.5) sec INR (<1.2) APTT (22.0-30.0) sec D-Dimer (<0.60) mg/L FEU Sodium (137-145) mmol/L Potassium (3.5-5.1) mmol/L Chloride (98-107) mmol/L Carbon Dioxide (22-30) mmol/L Anion Gap mmol/L BUN (7-17) mg/dL Creatinine (0.52-1.04) mg/dL Est GFR (CKD-EPI)AfAm (>60 ml/min/1.73 sqM) Est GFR (CKD-EPI)NonAf (>60 ml/min/1.73 sqM) Glucose (74-99) mg/dL Calcium (8.4-10.2) mg/dL Magnesium (1.6-2.3) mg/dL Total Bilirubin (0.2-1.3) mg/dL AST (14-36) U/L ALT (4-34) U/L Alkaline Phosphatase (38-126) U/L Troponin I <0.012 (0.000-0.034) ng/mL Total Protein (6.3-8.2) g/dL Albumin (3.5-5.0) g/dL Disposition Clinical Impression: Chest pain, Hypomagnesemia Disposition: ADMITTED IP TO THIS [facility] Condition: Stable Is patient prescribed a controlled substance at d/c from ED?: No Referrals: Noel Angulo MD [Primary Care Provider] - 1-2 days Time of Disposition: 15:06
[2024-08-25 13:38] LABS: ALT 9 U/L (4-34); African American GFR (CKD) >90 (>60 ml/min/1.73 sqM); Anion Gap 8 mmol/L; Blood Urea Nitrogen 11 mg/dL (7-17); Calcium 9.8 mg/dL (8.4-10.2); Carbon Dioxide 31 mmol/L (22-30); Chloride 97 mmol/L (98-107); Glucose 103 mg/dL (74-99); Non-African American GFR(CKD) 81 (>60 ml/min/1.73 sqM); Sodium 136 mmol/L (137-145); Total Bilirubin 1.1 mg/dL (0.2-1.3); Total Protein 6.8 g/dL (6.3-8.2)
[2024-08-25 13:42] LABS: AST 26 U/L (14-36); Alkaline Phosphatase 47 U/L (38-126)
[2024-08-25 13:44] LABS: Partial Thromboplastin Time 25.2 sec (22.0-30.0); Prothrombin Time 11.5 sec (10.0-12.5)
--- NOTE | 2024-08-25 14:03 | XR ---
EXAMINATION TYPE: XR chest 2V DATE OF EXAM: 08/25/2024 1:44 PM COMPARISON: Chest x-ray December 27, 2023 CLINICAL INDICATION: Female, 84 years old with history of Chest Pain, TECHNIQUE: Frontal and lateral views of the chest are obtained. FINDINGS: There is no focal air space opacity, pleural effusion, or pneumothorax seen. Cardiomegaly is redemonstrated. The osseous structures are demineralized. IMPRESSION: Cardiomegaly without acute pulmonary process. [facility], , 08/25/2024 2:01 PM
[2024-08-25] MEDS: MAGNESIUM SULFATE-D5W PMX 1 GM in DEXTROSE/WATER 1 100ML.BAG IVPB SCH (14:20)
[2024-08-25] MEDS ORDERED: NALOXONE 0.4 MG/ML 1 ML VIAL IV PRN (15:03)
[2024-08-25 20:07] LABS: Glucose,Whole Blood 131 mg/dL (70-110)
[2024-08-25] MEDS: APIXABAN 2.5 MG TABLET PO SCH (22:27)
[2024-08-25] MEDS: ZOLPIDEM 5 MG TAB PO SCH (22:27)
[2024-08-25] MEDS: METOPROLOL TARTRATE 25 MG TAB PO SCH (22:27)
[2024-08-26 05:48] LABS: Glucose,Whole Blood 96 mg/dL (70-110)
[2024-08-26] MEDS: LEVOTHYROXINE 75 MCG TAB PO SCH (06:15)
[2024-08-26] MEDS ORDERED: SYMBICORT 80-4.5 MCG INHALER INHALATION PRN (09:44)
[2024-08-26] MEDS ORDERED: ARTIFICIAL TEARS-HYPROMELLOSE DROPS 15 ML BTL BOTH EYES PRN (09:44)
[2024-08-26] MEDS ORDERED: LEVOTHYROXINE 75 MCG TAB PO SCH (10:00)
[2024-08-26] MEDS: LACTOBACILLUS ACIDOPHILUS/PECT 1 EACH CAPSULE PO SCH (10:05)
[2024-08-26] MEDS: MAGNESIUM SULFATE-D5W PMX 1 GM in DEXTROSE/WATER 1 100ML.BAG IVPB SCH (10:05)
[2024-08-26] MEDS: MAGNESIUM OXIDE 400 MG TAB PO SCH (10:05)
[2024-08-26] MEDS: DIVALPROEX 250 MG TABLET.DR PO SCH (11:18)
[2024-08-26 11:21] LABS: Glucose,Whole Blood 97 mg/dL (70-110)
--- NOTE | 2024-08-26 13:17 | P.HPIM ---
History of Present Illness H&P Date: 08/26/24 History of present illness; patient 84-year-old lady with past medical history significant for chronic atrial fibrillation, chronic hypomagnesemia, COPD presented to the ER because of chest pain. Patient said that she was all right 1 hour back prior to arrival to the ER when she started having with this chest pain that was right-sided, pressure-like, nonradiating, no aggravating or relieving factor associated chest pain. There was no complaint of orthopnea or PND. There was no complaint of shortness of breath at that time. There was no episode of diaphoresis during this episode of chest pain. Patient denies any fever or chills. Patient denies any fever or chills. There is no complaint nausea, vomiting or abdominal pain. EMS was called and patient received aspirin and nitro en route to the ER. Initial lab work done in the ER showed WBC 8.2, hemoglobin 13.5, platelet, 91, D-dimer 0.32, sodium 130, potassium 4, BUN 11, creatinine 0.66, AST 26, ALT 9 troponin 0.012, magnesium level 1 eKG done in the ER showed heart rate of 51, irregular rhythm, no ST segment elevation or depression seen, no T-wave inversions seen. Chest x-ray done in the ER showed cardiomegaly without acute pulmonary process Patient admitted to internal medicine service REVIEW OF SYSTEMS: CONSTITUTIONAL: No fever, no malaise, no fatigue. HEENT: No recent visual problems or hearing problems. Denied any sore throat. CARDIOVASCULAR: As mentioned above. PULMONARY: As mentioned above GASTROINTESTINAL: No diarrhea, no nausea, no vomiting, no abdominal pain. NEUROLOGICAL: No headaches, no weakness, no numbness. HEMATOLOGICAL: Denies any bleeding or petechiae. GENITOURINARY: Denies any burning micturition, frequency, or urgency. MUSCULOSKELETAL/RHEUMATOLOGICAL: Denies any joint pain, swelling, or any muscle pain. ENDOCRINE: Denies any polyuria or polydipsia. The rest of the 14-point review of systems is negative. PHYSICAL EXAMINATION: GENERAL: The patient is alert and oriented x3, not in any acute distress. Well developed, well nourished. HEENT: Pupils are round and equally reacting to light. EOMI. No scleral icterus. No conjunctival pallor. Normocephalic, atraumatic. No pharyngeal erythema. No thyromegaly. CARDIOVASCULAR: S1 and S2 present. No murmurs, rubs, or gallops. PULMONARY: Chest is clear to auscultation, no wheezing or crackles. ABDOMEN: Soft, nontender, nondistended, normoactive bowel sounds. No palpable organomegaly. MUSCULOSKELETAL: No joint swelling or deformity. EXTREMITIES: No cyanosis, clubbing, or pedal edema. NEUROLOGICAL: Gross neurological examination did not reveal any focal deficits. SKIN: No rashes. Assessment and plan Chest pain Hypomagnesemia Chronic atrial fibrillation Moderate mitral regurgitation with preserved LV function Diverticulosis Hypothyroidism Hypertension Hyperlipidemia Monitor vital signs Monitor CBC Monitor CMP Continue telemetry monitoring Trend troponin Ordered D-dimer Supplement magnesium by giving 4 g magnesium IV sulfate and ordering oral magnesium Resume Eliquis Resume Lopressor Consult cardiology Labs and medication were reviewed.. Continue same treatment. Continue with symptomatic treatment. Resume home medication. Monitor labs and vitals. DVT and GI prophylaxis. Further recommendations as per clinical course of the patient Dictation was produced using [employer] dictation software. please excuse any grammatical, word or spelling errors. Past Medical History Past Medical History: Atrial Fibrillation, Asthma, Chest Pain / Angina, Eye Disorder, Hypertension, Thyroid Disorder Additional Past Medical History / Comment(s): right cataracts, diverticulosis History of Any Multi-Drug Resistant Organisms: None Reported, C-DIFF Date of last positivie culture/infection: 07/2023 MDRO Source:: stool Past Surgical History: Appendectomy, Hernia Repair Additional Past Surgical History / Comment(s): laser for gallstone, colonoscopy, left eye cataract surg 01/2024 Past Anesthesia/Blood Transfusion Reactions: No Reported Reaction Additional Past Anesthesia/Blood Transfusion Reaction / Comment(s): Last blood transfusion 08/1969. No reaction. Past Psychological History: No Psychological Hx Reported Smoking Status: Never smoker Past Alcohol Use History: Rare Additional Past Alcohol Use History / Comment(s): 1 drink every two weeks Past Drug Use History: None Reported - Past Family History Mother Family Medical History: CVA/TIA Father Family Medical History: Cancer Additional Family Medical History / Comment(s): Pancreas Medications and Allergies Home Medications Medication Instructions Recorded Confirmed Type Divalproex [Depakote] 250 mg PO BID 12/22/17 08/25/24 History Levothyroxine Sodium [Synthroid] 75 mcg PO DAILY 12/22/17 08/25/24 History Metoprolol Tartrate 25 mg PO BID 12/22/17 08/25/24 History Zolpidem Tartrate [Ambien] 10 mg PO HS 12/22/17 08/25/24 History Apixaban [Eliquis] 2.5 mg PO BID #60 tab 08/26/23 08/25/24 Rx Magnesium 250 mg PO BID 12/27/23 08/25/24 History Artificial Tears-Hypromellose 1 drop BOTH EYES QID PRN 08/25/24 08/25/24 History [Artificial Tear Drops] Bacillus Coagulans [Probiotic] 2 tab PO BID 08/25/24 08/25/24 History Fluticasone Propion/Salmeterol 2 puff INHALATION RT-BID PRN 08/25/24 08/25/24 History [Advair 100-50 Diskus] hydroCHLOROthiazide [Hydrodiuril] 50 mg PO DAILY 08/25/24 08/25/24 History Allergies Allergy/AdvReac Type Severity Reaction Status Date / Time No Known Allergies Allergy Verified 08/25/24 16:11 Physical Exam Vitals: Vital Signs Temp Pulse Pulse Resp BP BP Pulse Ox 08/26/24 08:10 97.5 F L 79 18 137/82 95 08/26/24 04:00 97.9 F 75 12 126/70 97 08/26/24 00:00 97.6 F 66 16 119/69 95 08/25/24 19:38 97.5 F L 74 14 144/74 93 L 08/25/24 17:30 58 L 16 116/99 98 08/25/24 15:50 67 18 120/58 99 08/25/24 14:20 60 14 119/68 95 08/25/24 13:13 97.1 F L 68 16 131/76 08/25/24 13:02 97.1 F L 86 16 131/76 Intake and Output 08/25/24 08/26/24 08/26/24 22:59 06:59 14:59 Intake Total 190 Balance 190 Intake: IV 10 Invasive Line 1 10 Oral 180 Other: Voiding Method Toilet Toilet Toilet # Voids 2 2 1 # Bowel Movements 1 Weight 65.771 kg 61.5 kg Results CBC & Chem 7: 08/25/24 13:16 01/24/25 13:16 Labs: Abnormal Lab Results - Last 24 Hours (Table) 08/25/24 08/25/24 08/26/24 Range/Units 13:16 20:06 05:38 Sodium 136 L (137-145) mmol/L Chloride 97 L (98-107) mmol/L Carbon Dioxide 31 H (22-30) mmol/L Glucose 103 H (74-99) mg/dL POC Glucose (mg/dL) 131 H (70-110) mg/dL Magnesium 1.0 L 1.4 L (1.6-2.3) mg/dL Thrombosis Risk Factor Assmnt - Choose All That Apply Each Factor Represents 1 point: Obesity (BMI >25), Swollen legs (current) Other Risk Factors: Yes Each Risk Factor Represents 3 Points: Age 75 years or older Other congenital or acquired thrombophilia - If yes, enter type in comment: No Thrombosis Risk Factor Assessment Total Risk Factor Score: 5 Thrombosis Risk Factor Assessment Level: High Risk
[2024-08-26] MEDS: ZOLPIDEM 5 MG TAB PO SCH (21:10)
--- NOTE | 2024-08-27 10:17 | P.CRDCN ---
History of Present Illness History of present illness: HISTORY OF PRESENT ILLNESS: This is a 84-year-old female with a past medical history significant for permanent atrial fibrillation, hypertension, hyperlipidemia, and hypothyroidism. Patient saw Dr. Coleman but has not been to the office since 2020. We have been asked to see the patient in consultation for chest pain. Patient examined at the bedside. Patient states she was at home watching the game shown at work when she began to have chest discomfort. She states pain was in the middle of her chest. She denied any radiation of the pain. She states it was a sharp pain that lasted for about 5 to 10 minutes. She denies having pain like this previously. She denies any shortness of breath. She denies any further episodes of chest pain since coming into the hospital. Patient was found to have hypomagnesemia and has been supplemented. Most recent magnesium 1.8. DIAGNOSTICS: - EKG reveals atrial fibrillation with nonspecific ST-T wave changes. - Chest xray cardiomegaly without acute pulmonary process - Laboratory data: WBC 7.2. Hemoglobin 13.5. Platelet count 181. D-dimer 0.32. Sodium 136. Potassium 4.0. BUN 11. Creatinine 0.66. Troponin negative x 3. Magnesium 1.0. Repeat 1.8. - Current home cardiac medications include metoprolol tartrate 25 mg twice a d ay, Eliquis 2.5 mg twice a day. - Most recent echocardiogram obtained in August 2023 revealing ejection fraction 50 to 55%, moderate MR, mild AR - Cardiac catheterization history: Patient denies REVIEW OF SYSTEMS: At the time of my exam: CONSTITUTIONAL: Denies fever or chills. HEENT: Denies blurred vision, vision changes, or eye pain. Denies hemoptysis CARDIOVASCULAR: Denies chest pain. Denies orthopnea. Denies PND. Denies palpitations RESPIRATORY: Denies shortness of breath. GASTROINTESTINAL: Denies abdominal pain. Denies nausea or vomiting. HEMATOLOGIC: Denies bleeding disorders. GENITOURINARY: Denies any blood in urine. SKIN: Denies pruitis. Denies rash. PHYSICAL EXAM: VITAL SIGNS: Reviewed. GENERAL: Well-developed in no acute distress. HEENT: Head is normocephalic. Pupils are equal, round. Sclerae anicteric. Mucous membranes of the mouth are moist. Neck supple. No JVD or thyromegaly LUNGS: Respirations even and unlabored. Lungs essentially clear to auscultation bilaterally. HEART: Irregular rate and rhythm. S1 and S2 heard. Systolic murmur noted ABDOMEN: Soft. Nondistended. Nontender. EXTREMITIES: Normal range of motion. No clubbing or cyanosis. Peripheral pulses intact. No lower extremity edema NEUROLOGIC: Awake and alert. Oriented x 3. ASSESSMENT: Chest pain, troponin negative x 3 Permanent atrial fibrillation with controlled ventricular rate Hypomagnesemia Hypertension Hyperlipidemia Hypothyroidism PLAN: An acute coronary event has been ruled out Obtain 2D echo to assess cardiac structure and function Resume home cardiac medications Add atorvastatin 20 mg at night Add Imdur 30 mg daily Discussed options with patient including medical management versus stress test versus cardiac catheterization. Patient is leaning towards medical management but states she will consider undergoing stress test and would like to further discuss with her family. Further recommendations pending patient course Nurse practitioner note has been reviewed by physician. Signing provider agrees with the documented findings, assessment, and plan of care documented by PHOTOGRAPHIC PRINTER as a scribe. Past Medical History Past Medical History: Atrial Fibrillation, Asthma, Chest Pain / Angina, Eye Disorder, Hypertension, Thyroid Disorder Additional Past Medical History / Comment(s): right cataracts, diverticulosis History of Any Multi-Drug Resistant Organisms: None Reported, C-DIFF Date of last positivie culture/infection: 07/2023 MDRO Source:: stool Past Surgical History: Appendectomy, Hernia Repair Additional Past Surgical History / Comment(s): laser for gallstone, colonoscopy, left eye cataract surg 01/2024 Past Anesthesia/Blood Transfusion Reactions: No Reported Reaction Additional Past Anesthesia/Blood Transfusion Reaction / Comment(s): Last blood transfusion 08/1969. No reaction. Past Psychological History: No Psychological Hx Reported Smoking Status: Never smoker Past Alcohol Use History: Rare Additional Past Alcohol Use History / Comment(s): 1 drink every two weeks Past Drug Use History: None Reported - Past Family History Mother Family Medical History: CVA/TIA Father Family Medical History: Cancer Additional Family Medical History / Comment(s): Pancreas Medications and Allergies Home Medications Medication Instructions Recorded Confirmed Type Divalproex [Depakote] 250 mg PO BID 12/22/17 08/25/24 History Levothyroxine Sodium [Synthroid] 75 mcg PO DAILY 12/22/17 08/25/24 History Metoprolol Tartrate 25 mg PO BID 12/22/17 08/25/24 History Zolpidem Tartrate [Ambien] 10 mg PO HS 12/22/17 08/25/24 History Apixaban [Eliquis] 2.5 mg PO BID #60 tab 08/26/23 08/25/24 Rx Magnesium 250 mg PO BID 12/27/23 08/25/24 History Artificial Tears-Hypromellose 1 drop BOTH EYES QID PRN 08/25/24 08/25/24 History [Artificial Tear Drops] Bacillus Coagulans [Probiotic] 2 tab PO BID 08/25/24 08/25/24 History Fluticasone Propion/Salmeterol 2 puff INHALATION RT-BID PRN 08/25/24 08/25/24 History [Advair 100-50 Diskus] hydroCHLOROthiazide [Hydrodiuril] 50 mg PO DAILY 08/25/24 08/25/24 History Allergies Allergy/AdvReac Type Severity Reaction Status Date / Time No Known Allergies Allergy Verified 08/25/24 16:11 Physical Exam Vitals: Vital Signs Temp Pulse Resp BP Pulse Ox 08/27/24 08:27 98.2 F 76 16 119/67 93 L 08/27/24 04:00 97.6 F 94 16 136/79 95 08/26/24 23:54 91 16 142/84 95 08/26/24 20:00 97.4 F L 101 H 18 151/51 97 08/26/24 15:31 97.4 F L 63 18 132/78 95 08/26/24 11:15 97.6 F 56 L 18 125/70 95 Intake and Output 08/26/24 08/27/24 08/27/24 22:59 06:59 14:59 Intake Total 310 Balance 310 Intake: IV 10 Invasive Line 1 10 Oral 300 Other: Voiding Method Toilet Toilet Toilet # Voids 4 1 Weight 61.5 kg Results 08/25/24 13:16 08/25/24 13:16 Current Medications Generic Name Dose Route Start Last Admin Trade Name Freq PRN Reason Stop Dose Admin Apixaban 2.5 mg 08/25/24 22:00 08/27/24 08:25 Apixaban 2.5 Mg Tablet PO 2.5 mg BID [facility] Administration Protocol Artificial Tears 1 drops 08/26/24 09:44 Artificial Tears-Hypromellose Drops 15 Ml Btl BOTH EYES QID PRN DRY EYES Budesonide/Formoterol Fumarate 2 puff 08/26/24 09:44 Symbicort 80-4.5 Mcg Inhaler INHALATION RT-BID PRN Shortness Of Breath Divalproex Sodium 250 mg 08/26/24 10:00 08/27/24 08:25 Divalproex 250 Mg Tablet.Dr PO 250 mg BID [facility]A Administration Hydrochlorothiazide 50 mg 08/26/24 10:00 08/27/24 08:25 Hydrochlorothiazide 50 Mg Tab PO 50 mg DAILY [facility] Administration Isosorbide Mononitrate 30 mg 08/27/24 10:00 Isosorbide Mononitrate Er 30 Mg Tab.Er.24h PO DAILY [facility] Lactobacillus Acidophilus 1 each 08/26/24 10:00 08/27/24 08:26 Lactobacillus Acidophilus/Pect 1 Each Capsule PO 1 each BID PAMELA Administration Levothyroxine Sodium 75 mcg 08/26/24 06:00 08/27/24 06:14 Levothyroxine 75 Mcg Tab PO 75 mcg DAILY@0600 [facility] Administration Magnesium Oxide 400 mg 08/26/24 10:00 08/27/24 08:25 Magnesium Oxide 400 Mg Tab PO 400 mg BID [facility] Administration Metoprolol Tartrate 25 mg 08/25/24 22:00 08/27/24 08:25 Metoprolol Tartrate 25 Mg Tab PO 25 mg BID [facility] Administration Naloxone HCl 0.2 mg 08/25/24 15:03 Naloxone 0.4 Mg/Ml 1 Ml Vial IV Q2M PRN Opioid Reversal Zolpidem Tartrate 10 mg 08/25/24 22:00 08/26/24 21:08 Zolpidem 5 Mg Tab PO 10 mg HS P[facility]ELA Administration Zolpidem Tartrate 10 mg 08/26/24 21:00 08/26/24 21:10 Zolpidem 5 Mg Tab PO Not Given HS PAMELA Intake and Output 08/26/24 08/27/24 08/27/24 22:59 06:59 14:59 Intake Total 310 Balance 310 Intake: IV 10 Invasive Line 1 10 Oral 300 Other: Voiding Method Toilet Toilet Toilet # Voids 4 1 Weight 61.5 kg 08/25/24 13:16 08/25/24 13:16
[2024-08-27] MEDS: ISOSORBIDE MONONITRATE ER 30 MG TAB.ER.24H PO SCH (12:03)
--- NOTE | 2024-08-27 13:54 | P.PN ---
Subjective Progress Note Date: 08/27/24 patient 84-year-old lady with past medical history significant for chronic atrial fibrillation, chronic hypomagnesemia, COPD presented to the ER because of chest pain. Patient said that she was all right 1 hour back prior to arrival to the ER when she started having with this chest pain that was right-sided, pressure-like, nonradiating, no aggravating or relieving factor associated chest pain. There was no complaint of orthopnea or PND. There was no complaint of shortness of breath at that time. There was no episode of diaphoresis during this episode of chest pain. Patient denies any fever or chills. Patient denies any fever or chills. There is no complaint nausea, vomiting or abdominal pain. EMS was called and patient received aspirin and nitro en route to the ER. Initial lab work done in the ER showed WBC 8.2, hemoglobin 13.5, platelet, 91, D-dimer 0.32, sodium 130, potassium 4, BUN 11, creatinine 0.66, AST 26, ALT 9 troponin 0.012, magnesium level 1 eKG done in the ER showed heart rate of 51, irregular rhythm, no ST segment elevation or depression seen, no T-wave inversions seen. Chest x-ray done in the ER showed cardiomegaly without acute pulmonary process Patient admitted to internal medicine service 08/27. Patient seen and examined. Cardiology evaluated the patient, discussed with patient regarding doing stress test versus cardiac cath, patient still undecided. States she feels better REVIEW OF SYSTEMS: CONSTITUTIONAL: No fever, no malaise,. CARDIOVASCULAR: No chest pain, no palpitations, no syncope. PULMONARY: No shortness of breath, no cough, GASTROINTESTINAL: No diarrhea, no nausea, no vomiting, no abdominal pain. NEUROLOGICAL: No headaches, no weakness, PHYSICAL EXAMINATION: GENERAL: The patient is alert and oriented x3, not in any acute distress. Well developed, well nourished. HEENT: Pupils are round and equally reacting to light. EOMI. No scleral icterus. No conjunctival pallor. Normocephalic, atraumatic. No pharyngeal erythema. No thyromegaly. CARDIOVASCULAR: S1 and S2 present. No murmurs, rubs, or gallops. PULMONARY: Chest is clear to auscultation, no wheezing or crackles. ABDOMEN: Soft, nontender, nondistended, normoactive bowel sounds. No palpable organomegaly. MUSCULOSKELETAL: No joint swelling or deformity. EXTREMITIES: No cyanosis, clubbing, or pedal edema. NEUROLOGICAL: Gross neurological examination did not reveal any focal deficits. SKIN: No rashes. Assessment and plan Chest pain Hypomagnesemia Chronic atrial fibrillation Moderate mitral regurgitation with preserved LV function Diverticulosis Hypothyroidism Hypertension Hyperlipidemia Monitor vital signs Monitor CBC Monitor CMP Continue telemetry monitoring Continue Lopressor, Eliquis, continue HCTZ Cardiology ordered Imdur Cardiology has discussed with patient regarding ischemic workup in the form of stress test versus cardiac cath, patient undecided, will let us know after talking with family Labs and medication were reviewed.. Continue same treatment. Continue with symptomatic treatment. Resume home medication. Monitor labs and vitals. DVT and GI prophylaxis. Further recommendations as per clinical course of the patient Dictation was produced using [employer] dictation software. please excuse any grammatical, word or spelling errors. Objective - Vital Signs Vital signs: Vital Signs Temp 98.2 F 08/27/24 08:27 Pulse 76 08/27/24 08:27 Resp 16 08/27/24 08:27 BP 119/67 08/27/24 08:27 Pulse Ox 93 L 08/27/24 08:27 FiO2 Intake & Output 08/26/24 08/27/24 08/27/24 18:59 06:59 18:59 Intake Total 618 10 540 Balance 618 10 540 Weight 61.5 kg Intake: IV 20 10 Invasive Line 1 20 10 Oral 598 540 Other: Voiding Method Toilet Toilet Toilet # Voids 4 1 # Bowel Movements 1 - Labs CBC & Chem 7: 08/25/24 13:16 08/25/24 13:16
[2024-08-27 14:13] LABS: Glucose,Whole Blood 112 mg/dL (70-110)
[2024-08-27] MEDS: ACETAMINOPHEN TAB 325 MG TAB PO PRN (16:47)
[2024-08-27] MEDS: ATORVASTATIN 20 MG TAB PO SCH (20:19)
[2024-08-28] MEDS ORDERED: AMINOPHYLLINE 500 MG/20 ML VIAL IV PRN (10:03)
[2024-08-28] MEDS ORDERED: REGADENOSON 0.4 MG/5 ML SYRINGE IV PRN (10:03)
[2024-08-28] MEDS ORDERED: CAFFEINE CITRATE 60 MG/3 ML VIAL IV PRN (10:03)
--- NOTE | 2024-08-28 12:53 | P.PN ---
Subjective Progress Note Date: 08/28/24 08/28/2024 Patient is evaluated today in follow-up sitting up at the edge of the bed. Patient does report having a mild chest discomfort in her midsternal to right side of her chest which is exertional and states this happens when she is walking back from the bathroom. While she is resting in bed she is not currently having any symptoms. Patient has opted to go for a stress test and will go tomorrow morning. She is also complaining of a swollen right wrist there is some mild peripheral edema which is non pitting she does have +2 radial pulse. The IV is further up on the right arm. Review of Systems Constitutional: Denied any fatigue denied any fever. Cardio vascular: mild exertional chest pain, palpitations Gastrointestinal: denied any nausea, vomiting, diarrhea Pulmonary: Denied any shortness of breath cough Neurologic denied any new focal deficits All inpatient medications were reviewed and appropriate changes in these medications as dictated in the interval history and assessment and plan. PHYSICAL EXAMINATION: GENERAL: The patient is alert and oriented x3, not in any acute distress. Well developed, well nourished. HEENT: Pupils are round and equally reacting to light. EOMI. No scleral icterus. No conjunctival pallor. Normocephalic, atraumatic. No pharyngeal erythema. No thyromegaly. CARDIOVASCULAR: S1 and S2 present. No murmurs, rubs, or gallops. PULMONARY: Chest is clear to auscultation, no wheezing or crackles. ABDOMEN: Soft, nontender, nondistended, normoactive bowel sounds. No palpable organomegaly. MUSCULOSKELETAL: No joint swelling or deformity. EXTREMITIES: No cyanosis, clubbing, or pedal edema. NEUROLOGICAL: Gross neurological examination did not reveal any focal deficits. SKIN: No rashes. Assessment and plan Chest pain, exertional Hypomagnesemia repleted Chronic atrial fibrillation Moderate mitral regurgitation with preserved LV function Hx of asthma with no acute exacerbation Diverticulosis Hypothyroidism Hypertension Hyperlipidemia GI prophylaxis DVT prophylaxis Full Code Plan Continue oral eliquis 2.5 mg PO BID Continue depakote Patient has been started on imdur Echocardiogram pending Due to the exertional chest discomfort patient is scheduled to undergo stress testing tomorrow 08/29/2024 Cardiology following The impression and plan of care has been dictated by Bruna [place], Nurse Practitioner as directed. Dr. Benjamín MD I have performed a history and physical examination and medical decision making of this patient, discussed the same with the dictator, and agree with the dictators assessment and plan as written, documented as a scribe. Based on total visit time, I have performed more than 50% of this visit. Objective - Vital Signs Vital signs: Vital Signs Temp 97.5 F L 08/28/24 08:00 Pulse 72 08/28/24 11:38 Resp 16 08/28/24 11:38 BP 137/61 08/28/24 11:38 Pulse Ox 95 08/28/24 11:38 FiO2 Intake & Output 08/27/24 08/28/24 08/28/24 18:59 06:59 18:59 Intake Total 660 240 Balance 660 240 Weight 61.4 kg Intake: Oral 660 240 Other: Voiding Method Toilet Toilet Toilet # Voids 2 1 1 # Bowel Movements 1 1 - Labs CBC & Chem 7: 08/25/24 13:16 08/25/24 13:16 Labs: Abnormal Lab Results - Last 24 Hours (Table) 08/27/24 Range/Units 14:10 POC Glucose (mg/dL) 112 H (70-110) mg/dL Assessment and Plan Time with Patient: Less than 30
--- NOTE | 2024-08-28 14:38 | P.PN ---
Subjective Progress Note Date: 08/28/24 HISTORY OF PRESENT ILLNESS: This is a 84-year-old female with a past medical history significant for pe rmanent atrial fibrillation, hypertension, hyperlipidemia, and hypothyroidism. Patient saw Dr. Coleman but has not been to the office since 2020. We have been asked to see the patient in consultation for chest pain. Patient examined at the bedside. Patient states she was at home watching the game shown at work when she began to have chest discomfort. She states pain was in the middle of her chest. She denied any radiation of the pain. She states it was a sharp pain that lasted for about 5 to 10 minutes. She denies having pain like this previously. She denies any shortness of breath. She denies any further episodes of chest pain since coming into the hospital. Patient was found to north ve hypomagnesemia and has been supplemented. Most recent magnesium 1.8. DIAGNOSTICS: - EKG reveals atrial fibrillation with nonspecific ST-T wave changes. - Chest xray cardiomegaly without acute pulmonary process - Laboratory data: WBC 7.2. Hemoglobin 13.5. Platelet count 181. D-dimer 0.32. Sodium 136. Potassium 4.0. BUN 11. Creatinine 0.66. Troponin negative x 3. Magnesium 1.0. Repeat 1.8. - Current home cardiac medications include metoprolol tartrate 25 mg twice a day, Eliquis 2.5 mg twice a day. - Most recent echocardiogram obtained in August 2023 revealing ejection fraction 50 to 55%, moderate MR, mild AR - Cardiac catheterization history: Patient denies 08/28 Patient seen and examined. She denies having chest pain at this time but states she did have some along the right sternal border earlier. There is some tenderness to touch. Regarding Lexiscan versus cardiac catheterization, patient is agreeable to move forward with a stress test. Patient ate breakfast this mor amira so we will plan to do this tomorrow. Blood pressure 137/61, heart rate 72, pulse ox 95% on room air. Echocardiogram is pending. PHYSICAL EXAM: VITAL SIGNS: Reviewed. GENERAL: Well-developed in no acute distress. HEENT: Head is normocephalic. Pupils are equal, round. Sclerae anicteric. Mucous membranes of the mouth are moist. Neck supple. No JVD or thyromegaly LUNGS: Respirations even and unlabored. Lungs essentially clear to auscultation bilaterally. HEART: Irregular rate and rhythm. S1 and S2 heard. Systolic murmur noted ABDOMEN: Soft. Nondistended. Nontender. EXTREMITIES: Normal range of motion. No clubbing or cyanosis. Peripheral pulses intact. No lower extremity edema NEUROLOGIC: Awake and alert. Oriented x 3. ASSESSMENT: Chest pain, troponin negative x 3 Permanent atrial fibrillation with controlled ventricular rate Hypomagnesemia Hypertension Hyperlipidemia Hypothyroidism PLAN: An acute coronary event has been ruled out Obtain 2D echo to report assess cardiac structure and function Continue home cardiac medications Continue atorvastatin 20 mg at night Continue Imdur 30 mg daily Patient will be scheduled for Lexiscan stress test tomorrow morning. N.p.o. after midnight Further recommendations pending patient course Nurse practitioner note has been reviewed by physician. Signing provider agrees with the documented findings, assessment, and plan of care documented by BUCKLE FRAME SHAPER as a scribe. Objective - Vital Signs Vital signs: Vital Signs Temp 97.5 F L 08/28/24 08:00 Pulse 78 08/28/24 08:00 Resp 17 08/28/24 08:00 BP 108/70 08/28/24 08:00 Pulse Ox 95 08/28/24 08:00 FiO2 Intake & Output 08/27/24 08/28/24 08/28/24 18:59 06:59 18:59 Intake Total 660 240 Balance 660 240 Weight 61.4 kg Intake: Oral 660 240 Other: Voiding Method Toilet Toilet Toilet # Voids 2 1 1 # Bowel Movements 1 1 - Labs CBC & Chem 7: 08/25/24 13:16 08/25/24 13:16 Labs: Abnormal Lab Results - Last 24 Hours (Table) 08/27/24 Range/Units 14:10 POC Glucose (mg/dL) 112 H (70-110) mg/dL
--- NOTE | 2024-08-28 17:07 | CA ---
Transthoracic Echo Report Name: Falguni Sorenson Age: 84 Gender: F : 1940 Exam Date: 08/28/2024 08:40 Exam Location: [facility] Ht (in): 61 Wt (lb): 135 Ordering Physician: Arehta Gutierrez Attending/Referring Phys: [id number], Matt Bin Operator Rebeca Dave RDCS Procedure CPT: Indications: LV function, CP Cardiac Hx: A-fib Technical Quality: Good Contrast 1: Total Dose (mL): Contrast 2: Total Dose (mL): MEASUREMENTS (Male / Female) Normal Values 2D ECHO LV Diastolic Diameter PLAX 4.6 cm 4.2 - 5.9 / 3.9 - 5.3 cm LV Systolic Diameter PLAX 3.3 cm IVS Diastolic Thickness 0.9 cm 0.6 - 1.0 / 0.6 - 0.9 cm LVPW Diastolic Thickness 1.0 cm 0.6 - 1.0 / 0.6 - 0.9 cm LV Relative Wall Thickness 0.4 LVOT Diameter 2.1 cm LV Diastolic Volume MOD BP 57.8 cm??? 67 - 155 / 56 - 104 cm??? LV Systolic Volume MOD BP 24.5 cm??? 22 - 58 / 19 - 49 cm??? LV Ejection Fraction MOD BP 57.6 % >= 55 % LV Cardiac Index MOD BP 1647.1 cm???/min???m??? LV Diastolic Volume MOD 4C 57.0 cm??? LV Systolic Volume MOD 4C 25.7 cm??? LV Ejection Fraction MOD 4C 55.0 % LV Cardiac Index MOD 4C 1549.0 cm???/min???m??? LV Diastolic Length 4C 6.7 cm LV Systolic Length 4C 5.1 cm LV Diastolic Volume MOD 2C 56.1 cm??? LV Systolic Volume MOD 2C 22.6 cm??? LV Ejection Fraction MOD 2C 59.7 % LV Cardiac Index MOD 2C 1657.4 cm???/min???m??? LV Diastolic Length 2C 6.4 cm LV Systolic Length 2C 5.3 cm LA Volume 83.3 cm??? 18 - 58 / 22 - 52 cm??? LA Volume Index 50.9 cm???/m??? 16 - 28 cm???/m??? DOPPLER AV Peak Velocity 97.7 cm/s AV Peak Gradient 3.8 mmHg AV Mean Velocity 66.5 cm/s AV Mean Gradient 2.0 mmHg AV Velocity Time Integral 20.1 cm LVOT Peak Velocity 74.2 cm/s LVOT Peak Gradient 2.2 mmHg LVOT Velocity Time Integral 15.0 cm LVOT Stroke Volume 53.3 cm??? LVOT Stroke Volume Index 33.3 ml/m??? LVOT Cardiac Index 2636.1 cm???/min???m??? AV Area Cont Eq vti 2.6 cm??? AV Area Cont Eq pk 2.7 cm??? TR Peak Velocity 243.0 cm/s TR Peak Gradient 23.6 mmHg Right Atrial Pressure 5.0 mmHg Pulmonary Artery Systolic Pressu 28.6 mmHg Right Ventricular Systolic Press 28.6 mmHg PV Peak Velocity 64.2 cm/s PV Peak Gradient 1.6 mmHg FINDINGS Left Ventricle Left ventricular ejection fraction is estimated at 55-60 %. Left ventricular cavity size normal. Left ventricular wall thickness normal. No obvious regional wall motion abnormalities. Right Ventricle Right ventricular dilatation. Mildly reduced right ventricular global systolic function. Right ventricular systolic pressure within normal limits. Right Atrium Severe right atrial dilatation. Left Atrium Severely increased left atrial volume. Mildly increased left atrial area. Mitral Valve Mitral valve thickened. No evidence for mitral valve prolapse. No mitral stenosis. Mild mitral regurgitation. Aortic Valve Trileaflet aortic valve. Diffuse thickening (sclerosis) of the aortic valve cusps without reduced excursion. No aortic stenosis. Mild aortic regurgitation. Tricuspid Valve Structurally normal tricuspid valve. No tricuspid stenosis. Trace to mild tricuspid regurgitation. Pulmonic Valve Pulmonic valve not well visualized. No pulmonic stenosis. No pulmonic regurgitation. Pericardium No pericardial effusion. Aorta Normal size aortic root and proximal ascending aorta. CONCLUSIONS Normal LV size and systolic function. Both atria are significantly enlarged. Mild right ventricular enlargement. Mitral annular calcification and aortic valve sclerosis without restriction. No pericardial effusion. No significant pulmonary hypertension Previewed by: Dr. Germania Hwang MD (Electronically Signed) Final Date: 28 August 2024 17:06
[2024-08-29] MEDS ORDERED: REGADENOSON 0.4 MG/5 ML SYRINGE IV PRN (06:00)
[2024-08-29] MEDS ORDERED: REGADENOSON 0.4 MG/5 ML SYRINGE IV ONE (08:00)
[2024-08-29 09:06] LABS: African American GFR (CKD) >90 (>60 ml/min/1.73 sqM); Anion Gap 3 mmol/L; Blood Urea Nitrogen 17 mg/dL (7-17); Calcium 9.9 mg/dL (8.4-10.2); Carbon Dioxide 39 mmol/L (22-30); Chloride 93 mmol/L (98-107); Glucose 89 mg/dL (74-99); Non-African American GFR(CKD) 81 (>60 ml/min/1.73 sqM); Sodium 135 mmol/L (137-145)
[2024-08-29 09:16] LABS: Magnesium 1.4 mg/dL (1.6-2.3); Potassium 4.3 mmol/L (3.5-5.1)
[2024-08-29] MEDS ORDERED: Magnesium Replacement Protocol 1 EACH MISC MISCELLANE PRN (09:27)
[2024-08-29 10:08] VITALS: TEMP 97.5
[2024-08-29] MEDS: MAGNESIUM SULFATE-D5W PMX 1 GM in DEXTROSE/WATER 1 100ML.BAG IVPB SCH (11:29)
--- NOTE | 2024-08-29 11:45 | CA ---
Lexiscan Nuclear Stress Test Report Name: Falguni Sorenson Exam Date: 08/29/2024 10:31 Exam Location: [facility] Ht (in): 61 Wt (lb): 135 BSA: 1.60 Ordering Phys: Dianna Souza Referring Phys: SATYA, Technologist: Raffy Mcgill Age: 84 Gender: F : 1940 Procedure CPT: Indications: Reflex order-Stress test ICD-10 Codes: Patient History: Medications: See chart Meds past 24 hrs: Pretest Chest Pain: STRESS TEST Lexiscan Protocol Exercise Duration (min:sec): 02:[address] Depressions (mm): Angina Score: Lopez Score: Resting HR (bpm): 67 Peak HR (bpm): 110 Resting BP (mmHg): 165 / 82 Peak BP (mmHg): 140 / 77 MPHR: 136 Target HR: 116 % MPHR: 81 METS: 1.0 Total Dose: Peak Dose: Atropine: Double Product: 52179 BP Response: Stress Termination: Infusion complete Stress Symptoms: Nausea Stress Summary: ECG ANALYSIS Resting ECG: Stress ECG: CONCLUSIONS Baseline EKG revealed atrial fibrillation with a controlled ventricular rate of about 70 bpm. There were nonspecific ST and T wave changes. Resting blood pressure was 160/82. With Lexiscan administration heart rate went up to 109 bpm and the blood pressure changed to 132/79. Patient was asymptomatic. EKG remained inconclusive. By EKG criteria this is an inconclusive Lexiscan stress test. The nuclear scan results which are more pertinent will be reported with radiology Dr. Germania Hwang MD (Electronically Signed) Final Date: 29 August 2024 11:44
[2024-08-29 11:47] VITALS: BP 136/89; PULSE 82; RESP 16
--- NOTE | 2024-08-29 12:05 | NM ---
EXAMINATION TYPE: NM stress lexiscan cardiolite DATE OF EXAM: 08/29/2024 COMPARISON: NONE CLINICAL INDICATION: Female, 84 years old with history of chest pain; TECHNIQUE: After the intravenous administration of 9.85 mCi Tc 99m Sestamibi - Cardiolite resting SP ECT images acquired 45 minutes post injection. The patient received 0.4mg Lexiscan, 25.4 mCi Tc 99m Sestamibi - Stress images obtained [address] injection FINDINGS: Review of stress and rest SPECT images demonstrates no distinct perfusion abnormality. Gated analysi s shows normal wall motion with an estimated left ventricular ejection fraction of 71 %. TID is calc ulated at 0.82. IMPRESSION: No scintigraphic evidence for reversible ischemia. [facility], , 08/29/2024 12:03 PM
[2024-08-29] MEDS: CHOLESTYRAMINE (WITH SUGAR) 4 GM PACKET PO SCH (13:47)
--- NOTE | 2024-08-29 14:35 | P.PN ---
Subjective Progress Note Date: 08/29/24 HISTORY OF PRESENT ILLNESS: This is a 84-year-old female with a past medical history significant for pe rmanent atrial fibrillation, hypertension, hyperlipidemia, and hypothyroidism. Patient saw Dr. Coleman but has not been to the office since 2020. We have been asked to see the patient in consultation for chest pain. Patient examined at the bedside. Patient states she was at home watching the game shown at work when she began to have chest discomfort. She states pain was in the middle of her chest. She denied any radiation of the pain. She states it was a sharp pain that lasted for about 5 to 10 minutes. She denies having pain like this previously. She denies any shortness of breath. She denies any further episodes of chest pain since coming into the hospital. Patient was found to north ve hypomagnesemia and has been supplemented. Most recent magnesium 1.8. DIAGNOSTICS: - EKG reveals atrial fibrillation with nonspecific ST-T wave changes. - Chest xray cardiomegaly without acute pulmonary process - Laboratory data: WBC 7.2. Hemoglobin 13.5. Platelet count 181. D-dimer 0.32. Sodium 136. Potassium 4.0. BUN 11. Creatinine 0.66. Troponin negative x 3. Magnesium 1.0. Repeat 1.8. - Current home cardiac medications include metoprolol tartrate 25 mg twice a day, Eliquis 2.5 mg twice a day. - Most recent echocardiogram obtained in August 2023 revealing ejection fraction 50 to 55%, moderate MR, mild AR - Cardiac catheterization history: Patient denies 08/28 Patient seen and examined. She denies having chest pain at this time but states she did have some along the right sternal border earlier. There is some tenderness to touch. Regarding Lexiscan versus cardiac catheterization, patient is agreeable to move forward with a stress test. Patient ate breakfast this mor amira so we will plan to do this tomorrow. Blood pressure 137/61, heart rate 72, pulse ox 95% on room air. Echocardiogram is pending. 08/29 Patient scheduled for Lexiscan stress test which is reported as no reversible ischemia. She is going for testing at this time. Blood pressure 113/76, heart rate 80, pulse ox 92% on room air. Echocardiogram revealed normal LV size and systolic function. Both atria are significantly enlarged. Mild right ventricular enlargement. Mitral annular calcification and aortic valve sclerosis without restriction. No pericardial effusion. No significant pulmonary hypertension. PHYSICAL EXAM: VITAL SIGNS: Reviewed. GENERAL: Well-developed in no acute distress. HEENT: Head is normocephalic. Pupils are equal, round. Sclerae anicteric. Mucous membranes of the mouth are moist. Neck supple. No JVD or thyromegaly LUNGS: Respirations even and unlabored. Lungs essentially clear to auscultation bilaterally. HEART: Irregular rate and rhythm. S1 and S2 heard. Systolic murmur noted ABDOMEN: Soft. Nondistended. Nontender. EXTREMITIES: Normal range of motion. No clubbing or cyanosis. Peripheral pulses intact. No lower extremity edema NEUROLOGIC: Awake and alert. Oriented x 3. ASSESSMENT: Chest pain, troponin negative x 3 Permanent atrial fibrillation with controlled ventricular rate Hypomagnesemia Hypertension Hyperlipidemia Hypothyroidism PLAN: An acute coronary event has been ruled out Continue home cardiac medications Continue atorvastatin 20 mg at night Continue Imdur 30 mg daily Patient is cleared for discharge from cardiology and may follow-up in 2 weeks. Nurse practitioner note has been reviewed by physician. Signing provider agrees with the documented findings, assessment, and plan of care documented by FINANCE ADVISOR as a scribe. Objective - Vital Signs Vital signs: Vital Signs Temp 97.4 F L 08/29/24 03:34 Pulse 83 08/29/24 03:34 Resp 16 08/29/24 03:34 BP 116/66 08/29/24 03:34 Pulse Ox 95 08/29/24 03:34 FiO2 Intake & Output 08/28/24 08/29/24 08/29/24 18:59 06:59 18:59 Intake Total 540 Balance 540 Weight 63.5 kg Intake: Oral 540 Other: Voiding Method Toilet Toilet # Voids 1 2 # Bowel Movements 1 - Labs CBC & Chem 7: 08/25/24 13:16 08/29/24 07:21 Labs: Abnormal Lab Results - Last 24 Hours (Table) 08/29/24 Range/Units 07:21 Sodium 135 L (137-145) mmol/L Chloride 93 L (98-107) mmol/L Carbon Dioxide 39 H (22-30) mmol/L Magnesium 1.4 L (1.6-2.3) mg/dL
== END 2024-08-29 15:56 | disposition home or self-care (01) | DRG 313 ==
LOC: SUPCPDRO 13:00 → EC 13:00 → 3SCARD 15:04
PROVIDERS: ADMIT Hospitalist; ATTEND Hospitalist
DX: R07.89 Other chest pain (principal); I48.21 Permanent atrial fibrillation; I10 Essential (primary) hypertension; E03.9 Hypothyroidism, unspecified; J44.89 Other specified chronic obstructive pulmonary disease; I34.0 Nonrheumatic mitral (valve) insufficiency; E83.42 Hypomagnesemia; E78.5 Hyperlipidemia, unspecified; K57.30 Diverticulosis of large intestine without perforation or abscess without bleeding; Z79.890 Hormone replacement therapy; Z79.01 Long term (current) use of anticoagulants; Z79.899 Other long term (current) drug therapy
CPT/HCPCS: 36415; 71046; 78452; 80048; 80053; 83735; 84484; 85025; 85379; 85610; 85730; 87324; 93005; 93017; 93306; 96365; 96366; 99285

== ENCOUNTER 2024-12-18 11:29 | Emergency (ER) | payer MEDICARE, BC ==
--- NOTE | 2024-12-18 12:54 | ED ---
General Adult HPI - General Chief complaint: Upper Respiratory Infection Stated complaint: Cough,SOB Time Seen by Provider: 12/18/24 12:41 Source: patient, RN notes reviewed, old records reviewed Mode of arrival: ambulatory Limitations: no limitations - History of Present Illness Initial comments: Patient is a 84-year-old female who presents emergency department complaining of cough, congestion. Has a history of atrial fibrillation on blood thinners, remote history of asthma that is very mild, angina, hypertension, thyroid disorder. Has had symptoms for 2 days. Productive cough of yellow sputum. Positive sick contacts in her daughter as well as her son-in-law. She denies any nausea or vomiting or diarrhea. Denies any chest pain or abdominal pain. Denies any headaches or fevers. Presents for further evaluation at this time. Sick contacts were on antibiotics, steroids at home. - Related Data Home Medications Medication Instructions Recorded Confirmed Divalproex [Depakote] 250 mg PO BID 12/22/17 08/25/24 Levothyroxine Sodium [Synthroid] 75 mcg PO DAILY 12/22/17 08/25/24 Metoprolol Tartrate 25 mg PO BID 12/22/17 08/25/24 Zolpidem Tartrate [Ambien] 10 mg PO HS 12/22/17 08/25/24 Magnesium 250 mg PO BID 12/27/23 08/25/24 Artificial Tears-Hypromellose 1 drop BOTH EYES QID PRN 08/25/24 08/25/24 [Artificial Tear Drops] Bacillus Coagulans [Probiotic] 2 tab PO BID 08/25/24 08/25/24 Fluticasone Propion/Salmeterol 2 puff INHALATION RT-BID PRN 08/25/24 08/25/24 [Advair 100-50 Diskus] hydroCHLOROthiazide [Hydrodiuril] 50 mg PO DAILY 08/25/24 08/25/24 Previous Rx's Medication Instructions Recorded Apixaban [Eliquis] 2.5 mg PO BID #60 tab 08/26/23 Atorvastatin [Lipitor] 20 mg PO HS #30 tab 08/29/24 Cholestyramine (with Sugar) 4 gm PO BID PRN 2 Days #4 packet 08/29/24 [Questran] Isosorbide Mononitrate ER [Imdur] 30 mg PO DAILY #30 tab 08/29/24 Albuterol Inhaler [Ventolin Hfa 1 - 2 puff INHALATION Q6H PRN #1 12/18/24 Inhaler] each Azithromycin [Zithromax] 250 mg PO DAILY 4 Days #4 tab 12/18/24 predniSONE [Deltasone] 40 mg PO DAILY 5 Days #10 tab 12/18/24 Allergies Allergy/AdvReac Type Severity Reaction Status Date / Time No Known Allergies Allergy Verified 12/18/24 11:34 Review of Systems ROS Statement: Those systems with pertinent positive or pertinent negative responses have been documented in the HPI. Review of Systems: CONST: Denies fever EYES: Denies blurry vision ENT: Endorses nasal congestion C/V: Denies Chest pain RESP: Endorses productive cough GI: Denies abdominal pain : Denies dysuria SKIN: Denies rash. MSK: Denies joint pain. NEURO: Denies headache ROS Other: All systems not noted in ROS Statement are negative. Past Medical History Past Medical History: Atrial Fibrillation, Asthma, Chest Pain / Angina, Eye Disorder, Hypertension, Thyroid Disorder Additional Past Medical History / Comment(s): right cataracts, diverticulosis History of Any Multi-Drug Resistant Organisms: None Reported, C-DIFF Date of last positivie culture/infection: 07/2023 MDRO Source:: stool Past Surgical History: Appendectomy, Hernia Repair Additional Past Surgical History / Comment(s): laser for gallstone, colonoscopy, left eye cataract surg 01/2024 Past Anesthesia/Blood Transfusion Reactions: No Reported Reaction Additional Past Anesthesia/Blood Transfusion Reaction / Comment(s): Last blood transfusion 08/1969. No reaction. Past Psychological History: No Psychological Hx Reported Smoking Status: Never smoker Past Alcohol Use History: Rare Past Drug Use History: None Reported - Past Family History Mother Family Medical History: CVA/TIA Father Family Medical History: Cancer Additional Family Medical History / Comment(s): Pancreas General Exam - General Exam Comments Initial Comments: General: Appears in no acute distress. HEAD: Normal with no signs of head trauma. EYES: EOMI ENT: Hearing grossly intact, normal oropharynx. Moist mucous membranes RESPIRATORY: No significant increased work of breathing or hypoxia. Mildly coarse breath sounds bilaterally. C/V: Regular rate and rhythm. S1 and S2 auscultated, no significant edema, peripheral pulses 2+ and intact throughout ABD: Abd is soft, nontender, nondistended EXT: No obvious deformity SKIN: No rashes or lesions observed on exposed skin. NEURO: Alert and oriented x 4 Limitations: no limitations Course Vital Signs 12/18/24 12/18/24 12/18/24 11:31 13:00 14:31 Temperature 97.3 F L Pulse Rate 63 80 Respiratory 18 20 18 Rate Blood Pressure 139/79 O2 Sat by Pulse 94 L Oximetry 12/18/24 12/18/24 12/18/24 14:41 14:56 16:29 Temperature 97.9 F 98.0 F Pulse Rate 78 80 76 Respiratory 18 15 17 Rate Blood Pressure 149/79 136/78 O2 Sat by Pulse 93 L 94 L Oximetry Medical Decision Making - Medical Decision Making Was pt. sent in by a medical professional or institution ([facility], FINISH SPECIALIST, urgent care, hospital, or assisted...) When possible be specific @ -No Did you speak to anyone other than the patient for history (EMS, parent, family, police, friend...)? What history was obtained from this source @ -No Did you review nursing and triage notes (agree or disagree)? Why? @ -I reviewed and agree with nursing and triage notes Were old charts reviewed (outside hosp., previous admission, EMS record, old EKG, old radiological studies, urgent care reports/EKG's, assisted records)? Report findings @ -Reviewed patient's medication list that she brought with her when sure she is taking Eliquis as well as hydrochlorothiazide and metoprolol. Differential Diagnosis (chest pain, altered mental status, abdominal pain women, abdominal pain men, vaginal bleeding, weakness, fever, dyspnea, syncope, headache, dizziness, GI bleed, back pain, seizure, CVA, palpatations, mental health, musculoskeletal)? @ -COVID, flu, RSV, pneumonia. This list is not all inclusive. EKG interpreted by me (3pts min.). @ -None done X-rays interpreted by me (1pt min.). @ -Chest x-ray shows no obvious acute cardiopulmonary process. CT interpreted by me (1pt min.). @ -None done U/S interpreted by me (1pt. min.). @ -None done What testing was considered but not performed or refused? (CT, X-rays, U/S, labs)? Why? @ -None What meds were considered but not given or refused? Why? @ -None Did you discuss the management of the patient with other professionals (pr ofessionals i.e. , PA, FINISH SPECIALIST, lab, RT, psych nurse, older adult social work specialist, shelf drier operator, teacher, diplomatic officer, rn case mgr)? Give summary @ -No Was smoking cessation discussed for >3mins.? @ -No Was critical care preformed (if so, how long)? @ -No Were there social determinants of health that impacted care today? How? (Homelessness, low income, unemployed, alcoholism, drug addiction, transportation, low edu. Level, literacy, decrease access to med. care, fdc, rehab)? @ -No Was there de-escalation of care discussed even if they declined (Discuss DNR or withdrawal of care, Hospice)? DNR status @ -No What co-morbidities impacted this encounter? (DM, HTN, Smoking, COPD, CAD, Cancer, CVA, ARF, Chemo, Hep., AIDS, mental health diagnosis, sleep apnea, morbid obesity)? @ -None Was patient admitted / discharged? Hospital course, mention meds given and route, prescriptions, significant lab abnormalities, going to OR and other pertinent info. @ -Based on the patient's presentation physical exam, presents emergency department for URI symptoms. Seems to have a productive cough of yellow sputum. Has been ongoing for 2 days with positive sick contacts. Seems to be infectious in nature. We will obtain chest x-ray, viral swabs, basic labs. She was in agreement this plan. She will be given a breathing treatment at this time. Chest x-ray unremarkable. Laboratory studies returned remarkable for hypomagnesemia which is chronic at 0.9. Remainder the labs unremarkable. Patient's magnesium is typically anywhere between 0.9 and 1.4. Very rarely if she at a normal level. I updated the patient. Discussed her results are likely tracheobronchitis and she will be placed on steroids as well as given a prescription for an albuterol inhaler and started on a Z-Marc. She was in agreement this plan. Patient was hypomagnesemia and as she is not far off from her normal baseline, she received 1 g of magnesium via IV and then discharged home with instructions to continue with her magnesium supplementation at home which she has not been taking. She expressed understanding was in agreement this plan. I instructed the patient to follow up with their PCP in the next 1-3 days. . I explained that the patient should return to the emergency department if they experience any worsening symptoms. Strict return precautions were discussed with the patient. The patient expressed understanding of these instructions. I answered all questions that the patient had. The patient was discharged home in [good] condition with their prescriptions and follow up information. Undiagnosed new problem with uncertain prognosis? @ -No Drug Therapy requiring intensive monitoring for toxicity (Heparin, Nitro, Insulin, Cardizem)? @ -No Were any procedures done? @ -No Diagnosis/symptom? @ -Tracheobronchitis, hypomagnesemia Acute, or Chronic, or Acute on Chronic? @ -Acute, Acute on chronic Uncomplicated (without systemic symptoms) or Complicated (systemic symptoms)? @ -Uncomplicated Side effects of treatment? @ -None Exacerbation, Progression, or Severe Exacerbation] @ -No Poses a threat to life or bodily function? @ -Unlikely at this time - Lab Data Result diagrams: 12/18/24 13:05 12/18/24 13:05 Lab Results 12/18/24 12/18/24 12/18/24 Range/Units 13:05 13:05 13:05 WBC 7.76 (4.50-10.00) 10*3/uL RBC 4.30 (4.10-5.20) 10*6/uL Hgb 13.6 (12.0-15.0) g/dL Hct 39.5 (37.2-46.3) % MCV 91.9 (80.0-97.0) fL MCH 31.6 (27.0-32.0) pg MCHC 34.4 (32.0-37.0) g/dL Plt Count 190 (140-440) 10*3/uL MPV 9.9 (9.5-12.2) fL Immature Gran % (Auto) 0.3 % Neutrophils % 40.6 % Lymphocytes % 35.1 % Monocytes % 20.1 % Eosinophils % 3.6 % Basophils % 0.3 % Immature Gran # 0.02 (0.00-0.04) 10*3/uL Neutrophils # 3.16 (1.80-7.70) 10*3/uL Lymphocytes # 2.72 (0.90-5.00) 10*3/uL Monocytes # 1.56 H (0.20-1.00) 10*3/uL Eosinophils # 0.28 (0.04-0.35) 10*3/uL Basophils # 0.02 (0.00-0.10) 10*3/uL Sodium 132 L (137-145) mmol/L Potassium 4.0 (3.5-5.1) mmol/L Chloride 89 L (98-107) mmol/L Carbon Dioxide 37 H (22-30) mmol/L Anion Gap 6 mmol/L BUN 16 (7-17) mg/dL Creatinine 0.65 (0.52-1.04) mg/dL Est GFR (CKD-EPI)AfAm >90 (>60 ml/min/1.73 sqM) Est GFR (CKD-EPI)NonAf 82 (>60 ml/min/1.73 sqM) Glucose 106 H (74-99) mg/dL Plasma Lactic Acid Andrew 1.1 (0.7-2.0) mmol/L Calcium 9.6 (8.4-10.2) mg/dL Magnesium 0.9 L* (1.6-2.3) mg/dL Total Bilirubin 0.8 (0.2-1.3) mg/dL AST 24 (14-36) U/L ALT 13 (4-34) U/L Alkaline Phosphatase 63 (38-126) U/L Total Protein 6.6 (6.3-8.2) g/dL Albumin 3.9 (3.5-5.0) g/dL Influenza Type A (PCR) (Not Detectd) Influenza Type B (PCR) (Not Detectd) RSV (PCR) (Not Detectd) SARS-CoV-2 (PCR) (Not Detectd) 12/18/24 Range/Units 13:05 WBC (4.50-10.00) 10*3/uL RBC (4.10-5.20) 10*6/uL Hgb (12.0-15.0) g/dL Hct (37.2-46.3) % MCV (80.0-97.0) fL MCH (27.0-32.0) pg MCHC (32.0-37.0) g/dL Plt Count (140-440) 10*3/uL MPV (9.5-12.2) fL Immature Gran % (Auto) % Neutrophils % % Lymphocytes % % Monocytes % % Eosinophils % % Basophils % % Immature Gran # (0.00-0.04) 10*3/uL Neutrophils # (1.80-7.70) 10*3/uL Lymphocytes # (0.90-5.00) 10*3/uL Monocytes # (0.20-1.00) 10*3/uL Eosinophils # (0.04-0.35) 10*3/uL Basophils # (0.00-0.10) 10*3/uL Sodium (137-145) mmol/L Potassium (3.5-5.1) mmol/L Chloride (98-107) mmol/L Carbon Dioxide (22-30) mmol/L Anion Gap mmol/L BUN (7-17) mg/dL Creatinine (0.52-1.04) mg/dL Est GFR (CKD-EPI)AfAm (>60 ml/min/1.73 sqM) Est GFR (CKD-EPI)NonAf (>60 ml/min/1.73 sqM) Glucose (74-99) mg/dL Plasma Lactic Acid Andrew (0.7-2.0) mmol/L Calcium (8.4-10.2) mg/dL Magnesium (1.6-2.3) mg/dL Total Bilirubin (0.2-1.3) mg/dL AST (14-36) U/L ALT (4-34) U/L Alkaline Phosphatase (38-126) U/L Total Protein (6.3-8.2) g/dL Albumin (3.5-5.0) g/dL Influenza Type A (PCR) Not Detected (Not Detectd) Influenza Type B (PCR) Not Detected (Not Detectd) RSV (PCR) Not Detected (Not Detectd) SARS-CoV-2 (PCR) Not Detected (Not Detectd) Disposition Clinical Impression: Tracheobronchitis, Hypomagnesemia Disposition: HOME SELF-CARE Condition: Good Instructions (If sedation given, give patient instructions): Acute Bronchitis (ED), Hypomagnesemia (ED) Additional Instructions: Your workup today shows hypomagnesemia and suspect tracheobronchitis. Complete course of antibiotics and steroids and use albuterol inhaler as needed. Restart your home magnesium powder. Follow-up with your PCP in the next 1 to 3 days for repeat labs. Return to the ER if any worsening symptoms. Prescriptions: predniSONE [Deltasone] 40 mg PO DAILY 5 Days #10 tab Albuterol Inhaler [Ventolin Hfa Inhaler] 1 - 2 puff INHALATION Q6H PRN #1 each PRN Reason: Dyspnea Azithromycin [Zithromax] 250 mg PO DAILY 4 Days #4 tab Is patient prescribed a controlled substance at d/c from ED?: No Referrals: Noel Angulo MD [Primary Care Provider] - 1-2 days Time of Disposition: 14:39
[2024-12-18 13:13] LABS: Basophils # (A) 0.02 10*3/uL (0.00-0.10); Basophils % (A) 0.3 %; Eosinophils # (A) 0.28 10*3/uL (0.04-0.35); Eosinophils % (A) 3.6 %; HCT 39.5 % (37.2-46.3); HGB 13.6 g/dL (12.0-15.0); Lymphocytes # (A) 2.72 10*3/uL (0.90-5.00); Lymphocytes % (A) 35.1 %; MCH 31.6 pg (27.0-32.0); MCHC 34.4 g/dL (32.0-37.0); MCV 91.9 fL (80.0-97.0); Mean Platelet Volume 9.9 fL (9.5-12.2); Monocytes # (A) 1.56 10*3/uL (0.20-1.00); Monocytes % (A) 20.1 %; Neutrophils # (A) 3.16 10*3/uL (1.80-7.70); Neutrophils % (A) 40.6 %; Platelet Count 190 10*3/uL (140-440); RDW 13.7 % (11.5-14.5); WBC 7.76 10*3/uL (4.50-10.00)
[2024-12-18 13:27] LABS: ALT 13 U/L (4-34); AST 24 U/L (14-36); African American GFR (CKD) >90 (>60 ml/min/1.73 sqM); Albumin 3.9 g/dL (3.5-5.0); Alkaline Phosphatase 63 U/L (38-126); Anion Gap 6 mmol/L; Blood Urea Nitrogen 16 mg/dL (7-17); Calcium 9.6 mg/dL (8.4-10.2); Carbon Dioxide 37 mmol/L (22-30); Chloride 89 mmol/L (98-107); Glucose 106 mg/dL (74-99); Non-African American GFR(CKD) 82 (>60 ml/min/1.73 sqM); Sodium 132 mmol/L (137-145); Total Bilirubin 0.8 mg/dL (0.2-1.3); Total Protein 6.6 g/dL (6.3-8.2)
--- NOTE | 2024-12-18 13:30 | XR ---
EXAMINATION TYPE: XR chest 2V DATE OF EXAM: 12/18/2024 CLINICAL INDICATION: Female, 84 years old with history of difficulty breathing, TECHNIQUE: Frontal and lateral views of the chest are obtained. COMPARISON: Chest x-ray August 25, 2024 FINDINGS: There is some chronic parenchymal changes bilaterally without suspicious new focal air spa ce opacity, pleural effusion, or pneumothorax seen. Mild Cardiomegaly redemonstrated. The osseous s tructures are demineralized. IMPRESSION: Chronic changes and mild cardiomegaly without acute pulmonary process. [facility], , 12/18/2024 1:27 PM
[2024-12-18 13:48] LABS: Influenza A Not Detected (Not Detectd); Influenza B Not Detected (Not Detectd); RSV Not Detected (Not Detectd)
[2024-12-18 14:12] LABS: Magnesium 0.9 mg/dL (1.6-2.3)
[2024-12-18] MEDS: IPRATROPIUM-ALBUTEROL 3 ML NEB INHALATION STA (14:31)
[2024-12-18] MEDS: AZITHROMYCIN 500 MG TAB PO STA (14:51)
[2024-12-18] MEDS: predniSONE 20 MG TAB PO STA (14:51)
[2024-12-18] MEDS: MAGNESIUM SULFATE-D5W PMX 1 GM in DEXTROSE/WATER 1 100ML.BAG IVPB ONE (14:51)
[2024-12-18 16:30] VITALS: BP 136/78; PULSE 76; RESP 17; TEMP 98
== END 2024-12-18 16:29 | disposition home or self-care (01) ==
LOC: EC 11:29
DX: E83.42 Hypomagnesemia (principal); J40 Bronchitis, not specified as acute or chronic
CPT/HCPCS: 36415; 94640; 80053; 83605; 83735; 85025; 87636; 71046; 99285; 96365; J3475; J7512